=== PATIENT | female | born 1940 | race Caucasian/White ===

== ENCOUNTER 2019-11-21 11:54 | Inpatient (IN) ==
[2019-11-21] MEDS ORDERED: STERILE WATER IRRIGATION IR ONE ×2 (13:39→14:13)
[2019-11-21] MEDS ORDERED: NS 250 ML IV 250 ML IV ONE (14:11)
[2019-11-21 14:31] LABS: BASOPHILS % (AUTO) 0.6 % (0.2-1.0); EOSINOPHILS % (AUTO) 0.6 % (0.9-2.9); HEMATOCRIT 36.2 % (36.0-47.0); HEMOGLOBIN 11.5 g/dL (12.0-16.0); LYMPHOCYTES # (AUTO) 1.5 X10^3/uL (1.3-2.9); LYMPHOCYTES % (AUTO) 19.3 % (21.0-51.0); MEAN CORPUSCULAR HEMOGLOBIN 21.6 pg (27.0-34.0); MEAN CORPUSCULAR HGB CONC 31.7 g/dL (33.0-35.0); MONOCYTES # (AUTO) 0.6 x10^3/uL (0.3-0.8); MONOCYTES % (AUTO) 8.2 % (0.0-13.0); NEUTROPHILS # (AUTO) 5.4 x10^3/uL (2.2-4.8); NEUTROPHILS % (AUTO) 71.3 % (42.0-75.0); PLATELET COUNT 397 X10^3/uL (150.0-450.0); RED BLOOD COUNT 5.33 X10^6/uL (3.5-5.4); RED CELL DISTRIBUTION WIDTH 19.1 % (11.6-16.5); WHITE BLOOD COUNT 7.6 X10^3/uL (3.6-10.0)
[2019-11-21] MEDS: NS 1000 ML 1,000 ML IV SCH (14:53)
[2019-11-21 14:57] LABS: ALANINE AMINOTRANSFERASE 19 Units/L (12-78); ALBUMIN 3.6 g/dL (3.4-5.0); ALKALINE PHOSPHATASE 111 Units/L (46-116); ASPARTATE AMINO TRANSFERASE 41 Units/L (15-37); BLOOD UREA NITROGEN 18 mg/dL (7-18); CALCIUM 9.4 mg/dL (8.5-10.1); CARBON DIOXIDE 30.3 mmol/L (21-32); CHLORIDE 103 mmol/L (98-107); COR NA(FOR HYPERGLY) 140 mmol/L (136-145); CREATINE KINASE 33 Units/L (26-192); CREATININE 1.77 mg/dL (0.55-1.02); HYPOCHROMASIA 2+; MICROCYTOSIS 1+; PLATELET MORPHOLOGY COMMENT NORMAL (NORMAL); SODIUM 139 mmol/L (136-145); TOTAL PROTEIN 8.1 g/dL (6.4-8.2); TROPONIN I < 0.02 ng/mL (0-1.5); eGFR NON BLACK RACES 29 (>60)
--- NOTE | 2019-11-21 15:04 | RAD ---
HISTORYHYPOTENSION, CHRONIC AFIBSTUDYCHEST, 1 VIEWCOMPARISONNoneFINDINGSThe trachea is midline. The cardiac silhouette is unremarkable . The lungs are clear without focal infiltrate or effusion. The bony thorax is unremarkable.IMPRESSIONNo acute cardiopulmonary disease.Electronically signed by: Brooks Randhawa (Nov 21, 2019 15:02:36)
[2019-11-21 15:13] VITALS: BMI 27.1
[2019-11-21] MEDS ORDERED: NORCO 5/325 MG TAB PO PRN (16:57)
[2019-11-21] MEDS ORDERED: LASIX PO PRN (16:58)
[2019-11-21 18:46] LABS: CKMB % 2.9 % (<4); CREATINE KINASE 35 Units/L (26-192); TROPONIN I < 0.02 ng/mL (0-1.5)
[2019-11-21 19:47] LABS: BILIRUBIN,URINE NEGATIVE (NEGATIVE); BLOOD/HEMOGLOBIN,URINE 2+ (NEGATIVE); COLOR,URINE YELLOW (YELLOW); GLUCOSE, URINE NEGATIVE (NEGATIVE); KETONES,URINE NEGATIVE (NEGATIVE); LEUKOCYTE ESTERASE ,URINE 3+ (NEGATIVE); NITRITES,URINE NEGATIVE (NEGATIVE); PROTEIN,URINE 2+ (NEGATIVE); UROBILINOGEN,URINE NORMAL (NORMAL)
[2019-11-21 19:48] LABS: APPEARANCE,URINE HAZY (CLEAR)
[2019-11-21 19:54] LABS: BACTERIA,URINE TRACE /HPF (NEGATIVE); MUCUS,URINE FEW /HPF (NEGATIVE); SQUAMOUS EPITHELIAL CELL,UR MODERATE /HPF (NEGATIVE)
[2019-11-21] MEDS: COLACE CAP 100 MG PO SCH (20:24)
[2019-11-21] MEDS: PEPCID 20 MG IV PREMIX* 20 MG/50 ML BAG IV SCH (20:29)
[2019-11-21] MEDS: MILK OF MAGNESIA PO SCH (20:29)
[2019-11-21] MEDS: PATIENT'S HOME MEDICATION PO SCH (20:29)
[2019-11-21] MEDS: TOPROL XL PO SCH (20:30)
[2019-11-21] MEDS ORDERED: SINGULAIR TAB 10 MG PO SCH (21:00)
[2019-11-21 22:43] LABS: CREATINE KINASE 33 Units/L (26-192); CREATINE KINASE MB < 1.0 ng/mL (0-4.0); TROPONIN I < 0.02 ng/mL (0-1.5)
[2019-11-22] MEDS: NS 1000 ML 1,000 ML IV SCH ×3 (03:26→18:24)
[2019-11-22] MEDS: ULTRAM PO PRN ×2 (03:59→20:57)
[2019-11-22] MEDS ORDERED: SYNTHROID 100 mcg TAB PO SCH ×2 (06:00→16:30)
--- NOTE | 2019-11-22 06:22 | RAD ---
HISTORYAFibSTUDYAP [id number] normal heart size and contour with clear lungs and pleural spaces.IMPRESSIONNo change; no acute chest disease demonstrated.Electronically signed by: PURVI COLEMAN (Nov 22, 2019 06:21:40)
[2019-11-22 06:55] LABS: BASOPHILS % (AUTO) 0.6 % (0.2-1.0); EOSINOPHILS # (AUTO) 0.1 x10^3/uL (0.0-0.2); EOSINOPHILS % (AUTO) 1.8 % (0.9-2.9); HEMATOCRIT 30.8 % (36.0-47.0); HEMOGLOBIN 9.8 g/dL (12.0-16.0); LYMPHOCYTES # (AUTO) 2.2 X10^3/uL (1.3-2.9); LYMPHOCYTES % (AUTO) 30.6 % (21.0-51.0); MEAN CORPUSCULAR HEMOGLOBIN 21.5 pg (27.0-34.0); MEAN CORPUSCULAR HGB CONC 31.8 g/dL (33.0-35.0); MEAN CORPUSCULAR VOLUME 67.5 fL (80.0-100.0); MEAN PLATELET VOLUME 7.2 fL (7.4-11.0); MONOCYTES # (AUTO) 0.7 x10^3/uL (0.3-0.8); MONOCYTES % (AUTO) 9.5 % (0.0-13.0); NEUTROPHILS # (AUTO) 4.1 x10^3/uL (2.2-4.8); NEUTROPHILS % (AUTO) 57.5 % (42.0-75.0); PLATELET COUNT 315 X10^3/uL (150.0-450.0); RED BLOOD COUNT 4.57 X10^6/uL (3.5-5.4); RED CELL DISTRIBUTION WIDTH 19.2 % (11.6-16.5); WHITE BLOOD COUNT 7.2 X10^3/uL (3.6-10.0)
[2019-11-22 07:00] LABS: ALBUMIN 2.9 g/dL (3.4-5.0); CALCIUM 8.7 mg/dL (8.5-10.1); CARBON DIOXIDE 27.1 mmol/L (21-32); COR CA(FOR HYPOALB) 9.6 mg/dL (8.5-10.1); CREATININE 1.36 mg/dL (0.55-1.02); TOTAL PROTEIN 6.6 g/dL (6.4-8.2)
[2019-11-22 07:56] LABS: HYPOCHROMASIA 2+; PLATELET MORPHOLOGY COMMENT NORMAL (NORMAL)
[2019-11-22 07:57] LABS: ANISOCYTOSIS SLIGHT; MICROCYTOSIS 1+
[2019-11-22] MEDS ORDERED: POTASSIUM CHL 60 MEQ/NS 0.45% 500 ML IV PRN (08:19)
[2019-11-22] MEDS ORDERED: K-RIDER 10 MEQ/NS 100 ML 10 MEQ/100 ML BAG IV PRN (08:19)
[2019-11-22] MEDS ORDERED: POTASSIUM CHLORIDE LIQ 20 MEQ UDC PO PRN (08:19)
[2019-11-22] MEDS ORDERED: K-DUR TAB 20 MEQ PO PRN (08:19)
[2019-11-22] MEDS ORDERED: KLOR-CON PO PRN (08:19)
[2019-11-22] MEDS ORDERED: POTASSIUM CHL 40 MEQ/NS 0.45% 500 ML IV PRN (08:19)
[2019-11-22] MEDS ORDERED: MICRO K EXTEN CAP 10 MEQ PO PRN (08:19)
[2019-11-22] MEDS: MILK OF MAGNESIA PO SCH ×2 (08:23→20:23)
[2019-11-22] MEDS: TOPROL XL PO SCH ×2 (08:24→20:24)
[2019-11-22] MEDS: NexIUM PO SCH (08:24)
[2019-11-22] MEDS: SINGULAIR TAB 10 MG PO SCH (08:24)
[2019-11-22] MEDS: XARELTO PO SCH (08:25)
[2019-11-22] MEDS: VITAMIN D3 PO SCH (08:29)
[2019-11-22] MEDS: PATIENT'S HOME MEDICATION PO SCH ×2 (08:30→20:24)
[2019-11-22] MEDS ORDERED: ZyrTEC TAB 10 MG PO SCH (09:00)
[2019-11-22] MEDS ORDERED: SYNTHROID 100 mcg TAB ONE (11:37)
[2019-11-22] MEDS: MAGNESIUM SULFATE 1 GRAM/100 mL PREMIX 1 GM/100 ML BAG IV PRN ×2 (11:40→13:49)
[2019-11-22] MEDS: MICRO K EXTEN CAP 10 MEQ PO PRN (13:50)
[2019-11-22] MEDS: COLACE CAP 100 MG PO SCH (20:23)
[2019-11-22] MEDS: PEPCID 20 MG IV PREMIX* 20 MG/50 ML BAG IV SCH (20:24)
[2019-11-22] MEDS: ZyrTEC TAB 10 MG PO SCH (20:24)
[2019-11-23] MEDS: NS 1000 ML 1,000 ML IV SCH ×2 (04:25→22:25)
[2019-11-23] MEDS: SYNTHROID 100 mcg TAB PO SCH (05:27)
[2019-11-23] MEDS ORDERED: SYNTHROID 100 mcg TAB PO SCH (06:00)
[2019-11-23 07:15] LABS: BASOPHILS # (AUTO) 0.1 X10^3/uL (0.0-0.1); BASOPHILS % (AUTO) 0.7 % (0.2-1.0); EOSINOPHILS # (AUTO) 0.3 x10^3/uL (0.0-0.2); EOSINOPHILS % (AUTO) 3.1 % (0.9-2.9); HEMATOCRIT 31.5 % (36.0-47.0); HEMOGLOBIN 10.1 g/dL (12.0-16.0); LYMPHOCYTES # (AUTO) 3.7 X10^3/uL (1.3-2.9); LYMPHOCYTES % (AUTO) 36.4 % (21.0-51.0); MEAN CORPUSCULAR HEMOGLOBIN 21.8 pg (27.0-34.0); MEAN CORPUSCULAR VOLUME 68.2 fL (80.0-100.0); MEAN PLATELET VOLUME 7.3 fL (7.4-11.0); MONOCYTES # (AUTO) 0.8 x10^3/uL (0.3-0.8); MONOCYTES % (AUTO) 8.3 % (0.0-13.0); NEUTROPHILS # (AUTO) 5.2 x10^3/uL (2.2-4.8); NEUTROPHILS % (AUTO) 51.5 % (42.0-75.0); PLATELET COUNT 383 X10^3/uL (150.0-450.0); RED BLOOD COUNT 4.62 X10^6/uL (3.5-5.4); RED CELL DISTRIBUTION WIDTH 19.5 % (11.6-16.5); WHITE BLOOD COUNT 10.1 X10^3/uL (3.6-10.0)
[2019-11-23 07:22] LABS: ALANINE AMINOTRANSFERASE 13 Units/L (12-78); ALKALINE PHOSPHATASE 94 Units/L (46-116); ASPARTATE AMINO TRANSFERASE 36 Units/L (15-37); BLOOD UREA NITROGEN 10 mg/dL (7-18); CALCIUM 7.9 mg/dL (8.5-10.1); CARBON DIOXIDE 27.8 mmol/L (21-32); CHLORIDE 106 mmol/L (98-107); COR CA(FOR HYPOALB) 8.7 mg/dL (8.5-10.1); CREATININE 1.31 mg/dL (0.55-1.02); MAGNESIUM 2.2 mg/dL (1.7-2.9); SODIUM 142 mmol/L (136-145); TOTAL PROTEIN 6.9 g/dL (6.4-8.2); eGFR NON BLACK RACES 42 (>60)
[2019-11-23 07:36] LABS: ANISOCYTOSIS SLIGHT; HYPOCHROMASIA 2+; MICROCYTOSIS 1+; PLATELET MORPHOLOGY COMMENT NORMAL (NORMAL)
[2019-11-23] MEDS: MILK OF MAGNESIA PO SCH ×2 (09:09→20:56)
[2019-11-23] MEDS: ULTRAM PO PRN ×2 (09:10→16:52)
[2019-11-23] MEDS: TOPROL XL PO SCH ×2 (09:11→20:54)
[2019-11-23] MEDS: NexIUM PO SCH (09:11)
[2019-11-23] MEDS: SINGULAIR TAB 10 MG PO SCH (09:11)
[2019-11-23] MEDS: XARELTO PO SCH (09:11)
[2019-11-23] MEDS: PATIENT'S HOME MEDICATION PO SCH ×2 (10:49→20:56)
[2019-11-23] MEDS: VITAMIN D3 PO SCH (10:50)
[2019-11-23] MEDS: VIBRAMYCIN PO SCH ×2 (12:28→20:53)
--- NOTE | 2019-11-23 13:42 | DR.H&P ---
H&P - History & Physical for Day of: H&P Date: 11/21/19 - Past Medical History Past Medical History: Anemia, Coronary Artery Disease, Hypertension, Hyperthyroidism, PUD - Past Surgical History Surgical History: Cholecystectomy, Hysterectomy, Ortho Surgery, Thyroidectomy - Family History Family Medical History: Cancer, Coronary Artery Disease, Hypertension - Social History Does patient currently use any type of tobacco product: No Have you used tobacco products in the last 12 months: No Type of Tobacco Use: None Does any household member use tobacco: No Alcohol Use: None Drug Use: None - Medications Home Medications: acetaminophen [From Percocet] Allergy (Verified 10/02/19 12:26) diphenhydramine [From Benadryl] Allergy (Verified 10/02/19 12:26) lidocaine Allergy (Verified 10/02/19 12:26) oxycodone [From Percocet] Allergy (Verified 10/02/19 12:26) Penicillins Allergy (Verified 10/02/19 12:26) Sulfa (Sulfonamide Antibiotics) Allergy (Verified 10/02/19 12:26) tetanus immune globulin Allergy (Verified 10/02/19 12:26) CONTINUE taking the following medications cetirizine 10 mg PO DAILY 11/21/19 [History] cholecalciferol (vitamin D3) [Vitamin D3] 125 mcg PO DAILY 11/21/19 [History] famotidine 20 mg PO BID 11/21/19 [History] furosemide 20 mg PO DAILY PRN 11/21/19 [History] hydrocodone-acetaminophen [[place]] 1 tab PO Q4H PRN 11/21/19 [History] metoprolol succinate 25 mg PO BID 11/21/19 [History] montelukast 10 mg PO DAILY 11/21/19 [History] promethazine 25 mg PO Q4HR PRN 11/21/19 [History] - Physical Exam Vital Signs: Temperature 98.1 F Pulse Rate [Left Brachial] 90 Respiratory Rate 18 Blood Pressure [Right Arm] 156/87 O2 Sat by Pulse Oximetry 96 - Allergies Allergies/Adverse Reactions: Allergies Allergy/AdvReac Type Severity Reaction Status Date / Time acetaminophen [From Percocet] Allergy Verified 10/02/19 12:26 diphenhydramine Allergy Verified 10/02/19 12:26 [From Benadryl] lidocaine Allergy Verified 10/02/19 12:26 oxycodone [From Percocet] Allergy Verified 10/02/19 12:26 Penicillins Allergy Verified 10/02/19 12:26 Sulfa (Sulfonamide Allergy Verified 10/02/19 12:26 Antibiotics) tetanus immune globulin Allergy Verified 10/02/19 12:26
--- NOTE | 2019-11-23 13:43 | DR.UPDATE ---
H&P Update History and Physical Update: History and Physical reviewed and patient examined. Changes noted: Yes with the following: PRESENTED TO THE OFFICE YESTERDAY WITH COMPLAINTS OF GENERALIZED WEAKNESS, FATIGUE, ABDOMINAL TENDERNESS, AND SEVERE NAUSEA. SYMPTOMS STARTED SEVERAL DAYS AGO AND HAVE PROGRESSIVELY GOTTEN WORSE. SHE HAS BEEN RECEIVING ORAL AND IV ANTIBIOTICS WELL WOUND CARE FOR A RIGHT LOWER LEG WOUND. HER BLOOD PRESSURE WAS NOTED TO BE 83/60 IN THE OFFICE. SHE WAS ADMITTED TO THE HOSPITAL FOR FURTHER EVALUATION AND TREATMENT OF DEHYDRATION AND HYPOTENSION. ON ARRIVAL TO THE HOSPITAL, VITALS WERE: 98.2-120-18-97%-127/74. LABS WERE OBTAINED. ABNORMAL LAB VALUES INCLUDE THE FOLLOWING: HGB 11.5, CREATININE 1.77, GLUCOSE 126, AST 41. CARDIAC ENZYMES WITHIN NORMAL LIMITS. URINALYSIS REVEALED: WBC 3-5, RBC 3-5, BACTERIA TRACE, LEUKOCYTES 3+. WOUND CULTURE OF THE RIGHT LEG WAS SET UP. A CHEST XRAY WAS OBTAINED AND REVEALED: NO ACUTE CARDIOPULMONARY DISEASE. EKG REVEALED: ATRIAL FLUTTER WITH HR 111. SHE WAS STARTED ON NORMAL SALINE AT 75 ML/HR, THE POTASSIUM AND MAGNESIUM PROTOCOLS, PEPCID IV, AND HOME MEDICATIONS WERE RESUMED. OTHERWISE, WE PLAN TO FOLLOW UP WITH AM LABS AND CONTINUE TO MONITOR. Prescription drug monitoring program results: PDMP reviewed and no concerns identified H&P Reviewed: Yes Patient was examined?: Yes
[2019-11-23] MEDS: ZyrTEC TAB 10 MG PO SCH (20:53)
[2019-11-23] MEDS: GENTAMICIN TOPICAL CRM TOP SCH (20:55)
[2019-11-23] MEDS: COLACE CAP 100 MG PO SCH (20:55)
[2019-11-23] MEDS: PEPCID 20 MG IV PREMIX* 20 MG/50 ML BAG IV SCH (22:25)
[2019-11-24] MEDS: SYNTHROID 100 mcg TAB PO SCH (05:12)
[2019-11-24 06:37] LABS: BASOPHILS # (AUTO) 0.1 X10^3/uL (0.0-0.1); BASOPHILS % (AUTO) 1.1 % (0.2-1.0); EOSINOPHILS # (AUTO) 0.3 x10^3/uL (0.0-0.2); EOSINOPHILS % (AUTO) 4.4 % (0.9-2.9); HEMATOCRIT 27.6 % (36.0-47.0); HEMOGLOBIN 8.7 g/dL (12.0-16.0); LYMPHOCYTES # (AUTO) 1.8 X10^3/uL (1.3-2.9); LYMPHOCYTES % (AUTO) 29.6 % (21.0-51.0); MEAN CORPUSCULAR HEMOGLOBIN 21.5 pg (27.0-34.0); MEAN CORPUSCULAR HGB CONC 31.4 g/dL (33.0-35.0); MEAN CORPUSCULAR VOLUME 68.5 fL (80.0-100.0); MONOCYTES # (AUTO) 0.5 x10^3/uL (0.3-0.8); MONOCYTES % (AUTO) 8.1 % (0.0-13.0); NEUTROPHILS # (AUTO) 3.4 x10^3/uL (2.2-4.8); NEUTROPHILS % (AUTO) 56.8 % (42.0-75.0); PLATELET COUNT 265 X10^3/uL (150.0-450.0); RED BLOOD COUNT 4.02 X10^6/uL (3.5-5.4); RED CELL DISTRIBUTION WIDTH 19.5 % (11.6-16.5); WHITE BLOOD COUNT 5.9 X10^3/uL (3.6-10.0)
[2019-11-24 06:52] LABS: ALANINE AMINOTRANSFERASE 15 Units/L (12-78); ALBUMIN 2.6 g/dL (3.4-5.0); ALKALINE PHOSPHATASE 81 Units/L (46-116); ASPARTATE AMINO TRANSFERASE 36 Units/L (15-37); BLOOD UREA NITROGEN 7 mg/dL (7-18); CALCIUM 7.7 mg/dL (8.5-10.1); CARBON DIOXIDE 26.6 mmol/L (21-32); CHLORIDE 110 mmol/L (98-107); COR CA(FOR HYPOALB) 8.8 mg/dL (8.5-10.1); CREATININE 1.12 mg/dL (0.55-1.02); SODIUM 142 mmol/L (136-145); eGFR NON BLACK RACES 50 (>60)
[2019-11-24 06:58] LABS: HYPOCHROMASIA 2+; MICROCYTOSIS 1+; PLATELET MORPHOLOGY COMMENT NORMAL (NORMAL)
--- NOTE | 2019-11-24 08:30 | PCM.PROG ---
Progress Note - Progress Note for Day of Date of Exam: 11/23/19 - Subjective Subjective: IS BEING TREATED FOR RIGHT LOWER EXTREMITY CELLULITIS, DEHYDRATION, HYPOTENSION, AND A URINARY TRACT INFECTION. TODAY, SHE IS ALERT AND ORIENTED, LYING IN BED ON MORNING ROUNDS. SHE CONTINUES WITH COMPLAINTS OF WEAKNESS AND NAUSEA. ON EXAMINATION, HEART IS REGULAR IN RATE AND RHYTHM. BILATERAL LUNGS ARE NOTED WITH DIMINISHED LUNG SOUNDS THROUGHOUT. ABDOMEN IS ROUND, SOFT, AND NON-TENDER WITH NORMAL BOWEL SOUNDS NOTED IN ALL QUADRANTS. RLE IS NOTED WITH ERYTHEMA AND AN OPEN WOUND. THERE IS A MINIMAL AMOUNT OF SEROSANGUINEOUS DRAINAGE NOTED. HER VITALS THIS MORNING ARE: 98.1-90 -20-96%-156/87. LABS WERE OBTAINED. ABNORMAL LAB VALUES INCLUDE THE FOLLOWING: WBC 10.1, HGB 10.1, HCT 31.5, POTASSIUM 3.1, CREATININE 1.31, GLUCOSE 107, CALCIUM 7.9, ALBUMIN 3.0. URINE CULTURE AND RIGHT LEG CULTURE PENDING. SHE IS CURRENTLY RECEIVING NORMAL SALINE AT 75 ML/HR, THE POTASSIUM AND MAGNESIUM PROTOCOLS, PEPCID IV, AND HOME MEDICATIONS WERE RESUMED. DOXYCYCLINE IS ONE OF HER HOME MEDICATIONS. WE WILL CONTINUE WITH CURRENT PLAN OF CARE TODAY. OTHERWISE, WE PLAN TO FOLLOW UP WITH AM LABS AND CONTINUE TO MONITOR. - Past Medical Family Social History Past Med/Fam/Surg Hx: No changes since H&P Allergies: Allergies acetaminophen [From Percocet] Allergy (Verified 10/02/19 12:26) previous chart listed acetaminiphen from the percocet also diphenhydramine [From Benadryl] Allergy (Verified 10/02/19 12:26) lidocaine Allergy (Verified 10/02/19 12:26) oxycodone [From Percocet] Allergy (Verified 10/02/19 12:26) previous chart listed acetaminiphen from the percocet also Penicillins Allergy (Verified 10/02/19 12:26) Sulfa (Sulfonamide Antibiotics) Allergy (Verified 10/02/19 12:26) tetanus immune globulin Allergy (Verified 10/02/19 12:26) - Review of Systems ROS: No change since H&P - Vital Signs and I&O's Vital Signs: Temperature 98.9 F Pulse Rate [Left Brachial] 89 Respiratory Rate 18 Blood Pressure [Right Arm] 129/72 O2 Sat by Pulse Oximetry 98 Intake and Output: Intake & Output 11/21/19 11/22/19 11/23/19 11/24/19 11:59 11:59 11:59 11:59 Intake Total 1780 / 1780 2940 / 2940 2790 / 2790 Output Total 0 / 0 Balance 1780 / 1780 2940 / 2940 2790 / 2790 - Physical Exam Oriented: Normal Eyes: Normal Ear: Normal Nose: Normal Throat: Normal Respiratory: Generalized, Diminished Cardiovascular: Normal : Normal Auscultation: Bowel Sounds: Normal Palpation: Normal Tenderness: Normal Skin: Wound (RLE ) Musculoskeletal: Normal Psychiatric: Normal Mood Description: Calm Affect: Normal Speech Pattern: Clear, Appropriate - Laboratory and Diagnostics Result Diagrams: 11/24/19 06:14 11/24/19 06:14 Labs: 11/22/19 11:45 Leg - Right Gram Stain - Final 11/22/19 11:45 Leg - Right Wound Culture - Preliminary Laboratory WBC 5.9 X10^3/uL (3.6-10.0) 11/24/19 06:14 RBC 4.02 X10^6/uL (3.5-5.4) 11/24/19 06:14 Hgb 8.7 g/dL (12.0-16.0) L 11/24/19 06:14 Hct 27.6 % (36.0-47.0) L 11/24/19 06:14 MCV 68.5 fL (80.0-100.0) L 11/24/19 06:14 MCH 21.5 pg (27.0-34.0) L 11/24/19 06:14 MCHC 31.4 g/dL (33.0-35.0) L 11/24/19 06:14 RDW 19.5 % (11.6-16.5) H 11/24/19 06:14 Plt Count 265 X10^3/uL (150.0-450.0) 11/24/19 06:14 Plt Count Comment Adequate (ADEQUATE) 11/24/19 06:14 MPV 7.0 fL (7.4-11.0) L 11/24/19 06:14 Neut % (Auto) 56.8 % (42.0-75.0) 11/24/19 06:14 Lymph % (Auto) 29.6 % (21.0-51.0) 11/24/19 06:14 [place] % (Auto) 8.1 % (0.0-13.0) 11/24/19 06:14 Eos % (Auto) 4.4 % (0.9-2.9) H 11/24/19 06:14 Baso % (Auto) 1.1 % (0.2-1.0) H 11/24/19 06:14 Neut # (Auto) 3.4 x10^3/uL (2.2-4.8) 11/24/19 06:14 Lymph # (Auto) 1.8 X10^3/uL (1.3-2.9) 11/24/19 06:14 [place] # (Auto) 0.5 x10^3/uL (0.3-0.8) 11/24/19 06:14 Eos # (Auto) 0.3 x10^3/uL (0.0-0.2) H 11/24/19 06:14 Baso # (Auto) 0.1 X10^3/uL (0.0-0.1) 11/24/19 06:14 Absolute Nucleated RBC 0.0 /100WBC 11/24/19 06:14 Plt Morphology Comment Normal (NORMAL) 11/24/19 06:14 RBC Morphology Abnormal (NORMAL) A 11/24/19 06:14 Hypochromasia 2+ A 11/24/19 06:14 Anisocytosis Slight A 11/23/19 05:45 Microcytosis 1+ A 11/24/19 06:14 Sodium 142 mmol/L (136-145) 11/24/19 06:14 Corrected Sodium TNP 11/24/19 06:14 Potassium 4.0 mmol/L (3.5-5.1) 11/24/19 06:14 Chloride 110 mmol/L (98-107) H 11/24/19 06:14 Carbon Dioxide 26.6 mmol/L (21-32) 11/24/19 06:14 BUN 7 mg/dL (7-18) 11/24/19 06:14 Creatinine 1.12 mg/dL (0.55-1.02) H 11/24/19 06:14 Est GFR (MDRD) Af Amer > 60 (>60) 11/24/19 06:14 Est GFR (MDRD) Non-Af 50 (>60) L 11/24/19 06:14 Glucose 101 mg/dL (65-99) H 11/24/19 06:14 Hemoglobin A1c 5.7 % 11/21/19 14:20 Calcium 7.7 mg/dL (8.5-10.1) L 11/24/19 06:14 Corrected Calcium 8.8 mg/dL (8.5-10.1) 11/24/19 06:14 Magnesium 2.2 mg/dL (1.7-2.9) 11/23/19 05:45 Total Bilirubin 0.40 mg/dL (0.2-1.0) 11/24/19 06:14 AST 36 Units/L (15-37) 11/24/19 06:14 ALT 15 Units/L (12-78) 11/24/19 06:14 Alkaline Phosphatase 81 Units/L (46-116) 11/24/19 06:14 Creatine Kinase 33 Units/L (26-192) 11/21/19 22:16 CK-MB (CK-2) < 1.0 ng/mL (0-4.0) 11/21/19 22:16 CK/CKMB % Calc 3.0 % (<4) 11/21/19 22:16 Troponin I < 0.02 ng/mL (0-1.5) 11/21/19 22:16 Total Protein 6.0 g/dL (6.4-8.2) L 11/24/19 06:14 Albumin 2.6 g/dL (3.4-5.0) L 11/24/19 06:14 Globulin 3.4 g/dL (2.5-4.5) 11/24/19 06:14 Albumin/Globulin Ratio 0.8 Ratio (1.1-2.1) L 11/24/19 06:14 Specimen Type Clean catch urine 11/21/19 19:36 Urine Color Yellow (YELLOW) 11/21/19 19:36 Urine Appearance Hazy (CLEAR) 11/21/19 19:36 Urine pH 6.0 (5.0 - 8.0) 11/21/19 19:36 Ur Specific [place] 1.015 (1.000-1.030) 11/21/19 19:36 Urine Protein 2+ (NEGATIVE) 11/21/19 19:36 Urine Glucose (UA) Negative (NEGATIVE) 11/21/19 19:36 Urine Ketones Negative (NEGATIVE) 11/21/19 19:36 Urine Occult Blood 2+ (NEGATIVE) 11/21/19 19:36 Urine Nitrite Negative (NEGATIVE) 11/21/19 19:36 Urine Bilirubin Negative (NEGATIVE) 11/21/19 19:36 Urine Urobilinogen Normal (NORMAL) 11/21/19 19:36 Ur Leukocyte Esterase 3+ (NEGATIVE) 11/21/19 19:36 Urine RBC 3-5 /HPF (0-3) A 11/21/19 19:36 Urine WBC 3-5 /HPF (0-5) 11/21/19 19:36 Ur Squamous Epith Cells Moderate /HPF (NEGATIVE) 11/21/19 19:36 Urine Bacteria Trace /HPF (NEGATIVE) 11/21/19 19:36 Urine Mucus Few /HPF (NEGATIVE) 11/21/19 19:36 Ur Culture Indicated? No/not indicated 11/21/19 19:36 - Plan (1) Cellulitis of right leg without foot Status: Acute Plan: DOXYCYCLINE 100MG PO BID, GENTAMICIN, WOUND CARE, CONTINUE TO MONITOR (2) Dehydration Status: Acute Plan: NORMAL SALINE AT 75 ML/HR, CONTINUE TO MONITOR (3) Urinary tract infection Status: Acute Qualifiers: Urinary tract infection type: site unspecified Hematuria presence: without hematuria Qualified Code(s): N39.0 - Urinary tract infection, site not specified Plan: DOXYCYCLINE 100MG PO BID, CONTINUE TO MONITOR
[2019-11-24] MEDS: XARELTO PO SCH (08:45)
[2019-11-24] MEDS: TOPROL XL PO SCH ×2 (08:46→20:13)
[2019-11-24] MEDS: ULTRAM PO PRN ×3 (08:46→22:10)
[2019-11-24] MEDS: VIBRAMYCIN PO SCH (08:46)
[2019-11-24] MEDS: MILK OF MAGNESIA PO SCH ×2 (08:46→20:15)
[2019-11-24] MEDS: NexIUM PO SCH (08:47)
[2019-11-24] MEDS: SINGULAIR TAB 10 MG PO SCH (08:47)
[2019-11-24] MEDS: VITAMIN D3 PO SCH (08:50)
[2019-11-24] MEDS: PATIENT'S HOME MEDICATION PO SCH ×2 (08:50→20:15)
[2019-11-24] MEDS: NS 1000 ML 1,000 ML IV SCH ×2 (11:00→19:31)
[2019-11-24] MEDS: PHENERGAN TAB 25 MG PO PRN (11:00)
[2019-11-24] MEDS: GENTAMICIN TOPICAL CRM TOP SCH ×2 (11:19→20:14)
--- NOTE | 2019-11-24 19:15 | PCM.PROG ---
Progress Note - Progress Note for Day of Date of Exam: 11/24/19 - Subjective Subjective: IS BEING TREATED FOR RIGHT LOWER EXTREMITY CELLULITIS, DEHYDRATION, HYPOTENSION, AND A URINARY TRACT INFECTION. TODAY, SHE IS ALERT AND ORIENTED, LYING IN BED ON MORNING ROUNDS. SHE CONTINUES WITH COMPLAINTS OF WEAKNESS AND NAUSEA. ON EXAMINATION, HEART IS REGULAR IN RATE AND RHYTHM. BILATERAL LUNGS ARE NOTED WITH DIMINISHED LUNG SOUNDS THROUGHOUT. ABDOMEN IS ROUND, SOFT, AND NON-TENDER WITH NORMAL BOWEL SOUNDS NOTED IN ALL QUADRANTS. RLE IS NOTED WITH ERYTHEMA AND AN OPEN WOUND. THERE IS A MINIMAL AMOUNT OF SEROSANGUINEOUS DRAINAGE NOTED. HER VITALS THIS MORNING ARE: 98.2-89 -20-100%-198/94. LABS WERE OBTAINED. ABNORMAL LAB VALUES INCLUDE THE FOLLOWING: HGB 8.7, HCT 27.6, CHLORIDE 110, CREATININE 1.12, GLUCOSE 101, CALCIUM 7.7, TOTAL PROTEIN 6.0, ALBUMIN 2.6. URINE CULTURE AND RIGHT LEG CULTURE PENDING. SHE IS CURRENTLY RECEIVING NORMAL SALINE AT 75 ML/HR, THE POTASSIUM AND MAGNESIUM PROTOCOLS, PEPCID IV, AND HOME MEDICATIONS WERE RESUMED. DOXYCYCLINE IS ONE OF HER HOME MEDICATIONS. WE WILL CONTINUE WITH CURRENT PLAN OF CARE TODAY. OTHERWISE, WE PLAN TO FOLLOW UP WITH AM LABS AND CONTINUE TO MONITOR. - Past Medical Family Social History Past Med/Fam/Surg Hx: No changes since H&P Allergies: Allergies acetaminophen [From Percocet] Allergy (Verified 10/02/19 12:26) previous chart listed acetaminiphen from the percocet also diphenhydramine [From Benadryl] Allergy (Verified 10/02/19 12:26) lidocaine Allergy (Verified 10/02/19 12:26) oxycodone [From Percocet] Allergy (Verified 10/02/19 12:26) previous chart listed acetaminiphen from the percocet also Penicillins Allergy (Verified 10/02/19 12:26) Sulfa (Sulfonamide Antibiotics) Allergy (Verified 10/02/19 12:26) tetanus immune globulin Allergy (Verified 10/02/19 12:26) - Review of Systems ROS: No change since H&P - Vital Signs and I&O's Vital Signs: Temperature 99.0 F Pulse Rate [Left Brachial] 100 Respiratory Rate 20 Blood Pressure [Right Arm] 134/78 O2 Sat by Pulse Oximetry 97 Intake and Output: Intake & Output 11/22/19 11/23/19 11/24/19 11/25/19 11:59 11:59 11:59 11:59 Intake Total 1780 / 1780 2940 / 2940 2790 / 2790 620 / 620 Output Total 0 / 0 Balance 1780 / 1780 2940 / 2940 2790 / 2790 620 / 620 - Physical Exam Oriented: Normal Eyes: Normal Ear: Normal Nose: Normal Throat: Normal Respiratory: Generalized, Diminished Cardiovascular: Normal : Normal Auscultation: Bowel Sounds: Normal Tenderness: Normal Skin: Wound (RLE ) Musculoskeletal: Normal Psychiatric: Normal Mood Description: Calm Affect: Normal Speech Pattern: Clear, Appropriate - Laboratory and Diagnostics Result Diagrams: 11/24/19 06:14 11/24/19 06:14 Labs: 11/23/19 18:40 Urine,Clean Catch Urine Culture - Preliminary 11/22/19 11:45 Leg - Right Gram Stain - Final 11/22/19 11:45 Leg - Right Wound Culture - Preliminary Laboratory WBC 5.9 X10^3/uL (3.6-10.0) 11/24/19 06:14 RBC 4.02 X10^6/uL (3.5-5.4) 11/24/19 06:14 Hgb 8.7 g/dL (12.0-16.0) L 11/24/19 06:14 Hct 27.6 % (36.0-47.0) L 11/24/19 06:14 MCV 68.5 fL (80.0-100.0) L 11/24/19 06:14 MCH 21.5 pg (27.0-34.0) L 11/24/19 06:14 MCHC 31.4 g/dL (33.0-35.0) L 11/24/19 06:14 RDW 19.5 % (11.6-16.5) H 11/24/19 06:14 Plt Count 265 X10^3/uL (150.0-450.0) 11/24/19 06:14 Plt Count Comment Adequate (ADEQUATE) 11/24/19 06:14 MPV 7.0 fL (7.4-11.0) L 11/24/19 06:14 Neut % (Auto) 56.8 % (42.0-75.0) 11/24/19 06:14 Lymph % (Auto) 29.6 % (21.0-51.0) 11/24/19 06:14 [place] % (Auto) 8.1 % (0.0-13.0) 11/24/19 06:14 Eos % (Auto) 4.4 % (0.9-2.9) H 11/24/19 06:14 Baso % (Auto) 1.1 % (0.2-1.0) H 11/24/19 06:14 Neut # (Auto) 3.4 x10^3/uL (2.2-4.8) 11/24/19 06:14 Lymph # (Auto) 1.8 X10^3/uL (1.3-2.9) 11/24/19 06:14 [place] # (Auto) 0.5 x10^3/uL (0.3-0.8) 11/24/19 06:14 Eos # (Auto) 0.3 x10^3/uL (0.0-0.2) H 11/24/19 06:14 Baso # (Auto) 0.1 X10^3/uL (0.0-0.1) 11/24/19 06:14 Absolute Nucleated RBC 0.0 /100WBC 11/24/19 06:14 Plt Morphology Comment Normal (NORMAL) 11/24/19 06:14 RBC Morphology Abnormal (NORMAL) A 11/24/19 06:14 Hypochromasia 2+ A 11/24/19 06:14 Anisocytosis Slight A 11/23/19 05:45 Microcytosis 1+ A 11/24/19 06:14 Sodium 142 mmol/L (136-145) 11/24/19 06:14 Corrected Sodium TNP 11/24/19 06:14 Potassium 4.0 mmol/L (3.5-5.1) 11/24/19 06:14 Chloride 110 mmol/L (98-107) H 11/24/19 06:14 Carbon Dioxide 26.6 mmol/L (21-32) 11/24/19 06:14 BUN 7 mg/dL (7-18) 11/24/19 06:14 Creatinine 1.12 mg/dL (0.55-1.02) H 11/24/19 06:14 Est GFR (MDRD) Af Amer > 60 (>60) 11/24/19 06:14 Est GFR (MDRD) Non-Af 50 (>60) L 11/24/19 06:14 Glucose 101 mg/dL (65-99) H 11/24/19 06:14 Hemoglobin A1c 5.7 % 11/21/19 14:20 Calcium 7.7 mg/dL (8.5-10.1) L 11/24/19 06:14 Corrected Calcium 8.8 mg/dL (8.5-10.1) 11/24/19 06:14 Magnesium 2.2 mg/dL (1.7-2.9) 11/23/19 05:45 Total Bilirubin 0.40 mg/dL (0.2-1.0) 11/24/19 06:14 AST 36 Units/L (15-37) 11/24/19 06:14 ALT 15 Units/L (12-78) 11/24/19 06:14 Alkaline Phosphatase 81 Units/L (46-116) 11/24/19 06:14 Creatine Kinase 33 Units/L (26-192) 11/21/19 22:16 CK-MB (CK-2) < 1.0 ng/mL (0-4.0) 11/21/19 22:16 CK/CKMB % Calc 3.0 % (<4) 11/21/19 22:16 Troponin I < 0.02 ng/mL (0-1.5) 11/21/19 22:16 Total Protein 6.0 g/dL (6.4-8.2) L 11/24/19 06:14 Albumin 2.6 g/dL (3.4-5.0) L 11/24/19 06:14 Globulin 3.4 g/dL (2.5-4.5) 11/24/19 06:14 Albumin/Globulin Ratio 0.8 Ratio (1.1-2.1) L 11/24/19 06:14 Specimen Type Clean catch urine 11/21/19 19:36 Urine Color Yellow (YELLOW) 11/21/19 19:36 Urine Appearance Hazy (CLEAR) 11/21/19 19:36 Urine pH 6.0 (5.0 - 8.0) 11/21/19 19:36 Ur Specific [place] 1.015 (1.000-1.030) 11/21/19 19:36 Urine Protein 2+ (NEGATIVE) 11/21/19 19:36 Urine Glucose (UA) Negative (NEGATIVE) 11/21/19 19:36 Urine Ketones Negative (NEGATIVE) 11/21/19 19:36 Urine Occult Blood 2+ (NEGATIVE) 11/21/19 19:36 Urine Nitrite Negative (NEGATIVE) 11/21/19 19:36 Urine Bilirubin Negative (NEGATIVE) 11/21/19 19:36 Urine Urobilinogen Normal (NORMAL) 11/21/19 19:36 Ur Leukocyte Esterase 3+ (NEGATIVE) 11/21/19 19:36 Urine RBC 3-5 /HPF (0-3) A 11/21/19 19:36 Urine WBC 3-5 /HPF (0-5) 11/21/19 19:36 Ur Squamous Epith Cells Moderate /HPF (NEGATIVE) 11/21/19 19:36 Urine Bacteria Trace /HPF (NEGATIVE) 11/21/19 19:36 Urine Mucus Few /HPF (NEGATIVE) 11/21/19 19:36 Ur Culture Indicated? No/not indicated 11/21/19 19:36 - Plan (1) Cellulitis of right leg without foot Status: Acute Plan: DOXYCYCLINE 100MG PO BID, GENTAMICIN, WOUND CARE, CONTINUE TO MONITOR (2) Dehydration Status: Acute Plan: NORMAL SALINE AT 75 ML/HR, CONTINUE TO MONITOR (3) Urinary tract infection Status: Acute Qualifiers: Urinary tract infection type: site unspecified Hematuria presence: without hematuria Qualified Code(s): N39.0 - Urinary tract infection, site not specified Plan: DOXYCYCLINE 100MG PO BID, CONTINUE TO MONITOR
[2019-11-24] MEDS: ZyrTEC TAB 10 MG PO SCH (20:12)
[2019-11-24] MEDS: COLACE CAP 100 MG PO SCH (20:13)
[2019-11-24] MEDS: PEPCID 20 MG IV PREMIX* 20 MG/50 ML BAG IV SCH (20:15)
[2019-11-24] MEDS: VIBRAMYCIN 100 MG in D5W 250 ML IV 250 ML IV SCH (20:20)
[2019-11-25] MEDS: NS 1000 ML 1,000 ML IV SCH ×2 (03:03→16:51)
[2019-11-25] MEDS: SYNTHROID 100 mcg TAB PO SCH (05:03)
[2019-11-25 06:24] LABS: BASOPHILS # (AUTO) 0.1 X10^3/uL (0.0-0.1); EOSINOPHILS # (AUTO) 0.3 x10^3/uL (0.0-0.2); EOSINOPHILS % (AUTO) 4.4 % (0.9-2.9); HEMATOCRIT 25.5 % (36.0-47.0); HEMOGLOBIN 8.2 g/dL (12.0-16.0); LYMPHOCYTES % (AUTO) 35.7 % (21.0-51.0); MEAN CORPUSCULAR HEMOGLOBIN 21.7 pg (27.0-34.0); MEAN CORPUSCULAR HGB CONC 31.9 g/dL (33.0-35.0); MEAN CORPUSCULAR VOLUME 67.9 fL (80.0-100.0); MEAN PLATELET VOLUME 7.2 fL (7.4-11.0); MONOCYTES # (AUTO) 0.5 x10^3/uL (0.3-0.8); MONOCYTES % (AUTO) 8.8 % (0.0-13.0); NEUTROPHILS # (AUTO) 2.9 x10^3/uL (2.2-4.8); NEUTROPHILS % (AUTO) 50.1 % (42.0-75.0); PLATELET COUNT 257 X10^3/uL (150.0-450.0); RED BLOOD COUNT 3.76 X10^6/uL (3.5-5.4); RED CELL DISTRIBUTION WIDTH 19.2 % (11.6-16.5); WHITE BLOOD COUNT 5.7 X10^3/uL (3.6-10.0)
[2019-11-25 06:45] LABS: ALANINE AMINOTRANSFERASE 12 Units/L (12-78); ALBUMIN 2.6 g/dL (3.4-5.0); ALKALINE PHOSPHATASE 80 Units/L (46-116); ASPARTATE AMINO TRANSFERASE 32 Units/L (15-37); BLOOD UREA NITROGEN 10 mg/dL (7-18); CALCIUM 7.9 mg/dL (8.5-10.1); CARBON DIOXIDE 27.2 mmol/L (21-32); CHLORIDE 109 mmol/L (98-107); CREATININE 1.26 mg/dL (0.55-1.02); SODIUM 142 mmol/L (136-145); TOTAL PROTEIN 5.9 g/dL (6.4-8.2); eGFR NON BLACK RACES 44 (>60)
[2019-11-25 06:54] LABS: ANISOCYTOSIS SLIGHT; HYPOCHROMASIA 2+; MICROCYTOSIS 1+; PLATELET MORPHOLOGY COMMENT NORMAL (NORMAL)
[2019-11-25] MEDS: TOPROL XL PO SCH ×2 (08:51→20:43)
[2019-11-25] MEDS: XARELTO PO SCH (08:51)
[2019-11-25] MEDS: NexIUM PO SCH (08:51)
[2019-11-25] MEDS: MILK OF MAGNESIA PO SCH ×2 (08:51→20:43)
[2019-11-25] MEDS: SINGULAIR TAB 10 MG PO SCH (08:51)
[2019-11-25] MEDS: PATIENT'S HOME MEDICATION PO SCH ×2 (08:55→20:43)
[2019-11-25] MEDS: VITAMIN D3 PO SCH (08:55)
[2019-11-25] MEDS: GENTAMICIN TOPICAL CRM TOP SCH ×2 (08:55→20:42)
[2019-11-25] MEDS: VIBRAMYCIN 100 MG in D5W 250 ML IV 250 ML IV SCH (08:55)
[2019-11-25] MEDS ORDERED: PROCALAMINE 3 % 1,000 ML IV SCH (11:00)
[2019-11-25] MEDS: INVANZ INJ 1 GM VIAL 1 GM in NS 100 ML IV + SPIKE MINIBAG* 100 ML IV SCH (12:39)
[2019-11-25] MEDS: ALBUMIN HUMAN 25%- 100 ML 100 ML IV SCH (12:39)
[2019-11-25] MEDS: PHENERGAN TAB 25 MG PO PRN (15:51)
[2019-11-25] MEDS: MAGNESIUM SULFATE 1 GRAM/100 mL PREMIX 1 GM/100 ML BAG IV PRN (15:51)
[2019-11-25] MEDS: ULTRAM PO PRN (20:30)
[2019-11-25] MEDS: COLACE CAP 100 MG PO SCH (20:42)
[2019-11-25] MEDS: PEPCID 20 MG IV PREMIX* 20 MG/50 ML BAG IV SCH (20:43)
[2019-11-25] MEDS: ZyrTEC TAB 10 MG PO SCH (20:43)
[2019-11-25] MEDS: MICRO K EXTEN CAP 10 MEQ PO PRN (21:00)
--- NOTE | 2019-11-25 21:27 | PCM.PROG ---
Progress Note - Progress Note for Day of Date of Exam: 11/25/19 - Subjective Subjective: IS BEING TREATED FOR RIGHT LOWER EXTREMITY CELLULITIS, DEHYDRATION, HYPOTENSION, AND A URINARY TRACT INFECTION. TODAY, SHE IS ALERT AND ORIENTED, LYING IN BED ON MORNING ROUNDS. SHE CONTINUES WITH COMPLAINTS OF WEAKNESS AND NAUSEA. ON EXAMINATION, HEART IS REGULAR IN RATE AND RHYTHM. BILATERAL LUNGS ARE NOTED WITH DIMINISHED LUNG SOUNDS THROUGHOUT. ABDOMEN IS ROUND, SOFT, AND NON-TENDER WITH NORMAL BOWEL SOUNDS NOTED IN ALL QUADRANTS. RLE IS NOTED WITH ERYTHEMA AND AN OPEN WOUND. THERE IS A MINIMAL AMOUNT OF SEROSANGUINEOUS DRAINAGE NOTED. HER VITALS THIS MORNING ARE: 98.4-87 -20-97%-140/64. LABS WERE OBTAINED. ABNORMAL LAB VALUES INCLUDE THE FOLLOWING: HGB 8.2, HCT 25.5, CHLORIDE 109, CREATININE 1.26, CALCIUM 7.9, MAGNESIUM 1.6, TOTAL PROTEIN 5.9, ALBUMIN 2.6. RIGHT LEG CULTURE PENDING. URINE CULTURE REVEALED GROWTH OF E.COLI AND KLEBSIELLA PNEUMONIAE. SHE IS CURRENTLY RECEIVING NORMAL SALINE AT 75 ML/HR, THE POTASSIUM AND MAGNESIUM PROTOCOLS, PEPCID IV, AND HOME MEDICATIONS WERE RESUMED. DOXYCYCLINE IS ONE OF HER HOME MEDICATIONS. WE WILL DISCONTINUE THE DOXY TODAY AND ADD INVANZ 1G IV DAILY AND ALBUMIN 25% IV DAILY. OTHERWISE, WE WILL CONTINUE WITH CURRENT PLAN OF CARE TODAY. WE PLAN TO FOLLOW UP WITH AM LABS AND CONTINUE TO MONITOR. - Past Medical Family Social History Past Med/Fam/Surg Hx: No changes since H&P Allergies: Allergies acetaminophen [From Percocet] Allergy (Verified 10/02/19 12:26) previous chart listed acetaminiphen from the percocet also diphenhydramine [From Benadryl] Allergy (Verified 10/02/19 12:26) lidocaine Allergy (Verified 10/02/19 12:26) oxycodone [From Percocet] Allergy (Verified 10/02/19 12:26) previous chart listed acetaminiphen from the percocet also Penicillins Allergy (Verified 10/02/19 12:26) Sulfa (Sulfonamide Antibiotics) Allergy (Verified 10/02/19 12:26) tetanus immune globulin Allergy (Verified 10/02/19 12:26) - Review of Systems ROS: No change since H&P - Vital Signs and I&O's Vital Signs: Temperature 98.9 F Pulse Rate [Left Brachial] 95 Respiratory Rate 20 Blood Pressure [Right Arm] 163/72 O2 Sat by Pulse Oximetry 99 Intake and Output: Intake & Output 11/23/19 11/24/19 11/25/19 11/26/19 11:59 11:59 11:59 11:59 Intake Total 2940 / 2940 2790 / 2790 2640 / 2640 1330 / 1330 Balance 2940 / 2940 2790 / 2790 2640 / 2640 1330 / 1330 - Physical Exam Oriented: Normal Eyes: Normal Ear: Normal Nose: Normal Throat: Normal Respiratory: Generalized, Diminished Cardiovascular: Normal : Normal Auscultation: Bowel Sounds: Normal Palpation: Normal Tenderness: Normal Skin: Wound (RLE ) Musculoskeletal: Normal Psychiatric: Normal Mood Description: Calm Affect: Normal Speech Pattern: Clear, Appropriate - Laboratory and Diagnostics Result Diagrams: 11/25/19 05:12 11/25/19 05:12 Labs: 11/22/19 11:45 Leg - Right Gram Stain - Final 11/22/19 11:45 Leg - Right Wound Culture - Final 11/23/19 18:40 Urine,Clean Catch Urine Culture - Final Escherichia Coli Klebsiella Pneumoniae Laboratory WBC 5.7 X10^3/uL (3.6-10.0) 11/25/19 05:12 RBC 3.76 X10^6/uL (3.5-5.4) 11/25/19 05:12 Hgb 8.2 g/dL (12.0-16.0) L 11/25/19 05:12 Hct 25.5 % (36.0-47.0) L 11/25/19 05:12 MCV 67.9 fL (80.0-100.0) L 11/25/19 05:12 MCH 21.7 pg (27.0-34.0) L 11/25/19 05:12 MCHC 31.9 g/dL (33.0-35.0) L 11/25/19 05:12 RDW 19.2 % (11.6-16.5) H 11/25/19 05:12 Plt Count 257 X10^3/uL (150.0-450.0) 11/25/19 05:12 Plt Count Comment Adequate (ADEQUATE) 11/25/19 05:12 MPV 7.2 fL (7.4-11.0) L 11/25/19 05:12 Neut % (Auto) 50.1 % (42.0-75.0) 11/25/19 05:12 Lymph % (Auto) 35.7 % (21.0-51.0) 11/25/19 05:12 [place] % (Auto) 8.8 % (0.0-13.0) 11/25/19 05:12 Eos % (Auto) 4.4 % (0.9-2.9) H 11/25/19 05:12 Baso % (Auto) 1.0 % (0.2-1.0) 11/25/19 05:12 Neut # (Auto) 2.9 x10^3/uL (2.2-4.8) 11/25/19 05:12 Lymph # (Auto) 2.0 X10^3/uL (1.3-2.9) 11/25/19 05:12 [place] # (Auto) 0.5 x10^3/uL (0.3-0.8) 11/25/19 05:12 Eos # (Auto) 0.3 x10^3/uL (0.0-0.2) H 11/25/19 05:12 Baso # (Auto) 0.1 X10^3/uL (0.0-0.1) 11/25/19 05:12 Absolute Nucleated RBC 0.0 /100WBC 11/25/19 05:12 Plt Morphology Comment Normal (NORMAL) 11/25/19 05:12 RBC Morphology Abnormal (NORMAL) A 11/25/19 05:12 Hypochromasia 2+ A 11/25/19 05:12 Anisocytosis Slight A 11/25/19 05:12 Microcytosis 1+ A 11/25/19 05:12 Sodium 142 mmol/L (136-145) 11/25/19 05:12 Corrected Sodium TNP 11/25/19 05:12 Potassium 3.5 mmol/L (3.5-5.1) 11/25/19 05:12 Chloride 109 mmol/L (98-107) H 11/25/19 05:12 Carbon Dioxide 27.2 mmol/L (21-32) 11/25/19 05:12 BUN 10 mg/dL (7-18) 11/25/19 05:12 Creatinine 1.26 mg/dL (0.55-1.02) H 11/25/19 05:12 Est GFR (MDRD) Af Amer 53 (>60) L 11/25/19 05:12 Est GFR (MDRD) Non-Af 44 (>60) L 11/25/19 05:12 Glucose 94 mg/dL (65-99) 11/25/19 05:12 Hemoglobin A1c 5.7 % 11/21/19 14:20 Calcium 7.9 mg/dL (8.5-10.1) L 11/25/19 05:12 Corrected Calcium 9.0 mg/dL (8.5-10.1) 11/25/19 05:12 Magnesium 1.6 mg/dL (1.7-2.9) L 11/25/19 05:12 Total Bilirubin 0.50 mg/dL (0.2-1.0) 11/25/19 05:12 AST 32 Units/L (15-37) 11/25/19 05:12 ALT 12 Units/L (12-78) 11/25/19 05:12 Alkaline Phosphatase 80 Units/L (46-116) 11/25/19 05:12 Creatine Kinase 33 Units/L (26-192) 11/21/19 22:16 CK-MB (CK-2) < 1.0 ng/mL (0-4.0) 11/21/19 22:16 CK/CKMB % Calc 3.0 % (<4) 11/21/19 22:16 Troponin I < 0.02 ng/mL (0-1.5) 11/21/19 22:16 Total Protein 5.9 g/dL (6.4-8.2) L 11/25/19 05:12 Albumin 2.6 g/dL (3.4-5.0) L 11/25/19 05:12 Globulin 3.3 g/dL (2.5-4.5) 11/25/19 05:12 Albumin/Globulin Ratio 0.8 Ratio (1.1-2.1) L 11/25/19 05:12 Specimen Type Clean catch urine 11/21/19 19:36 Urine Color Yellow (YELLOW) 11/21/19 19:36 Urine Appearance Hazy (CLEAR) 11/21/19 19:36 Urine pH 6.0 (5.0 - 8.0) 11/21/19 19:36 Ur Specific [place] 1.015 (1.000-1.030) 11/21/19 19:36 Urine Protein 2+ (NEGATIVE) 11/21/19 19:36 Urine Glucose (UA) Negative (NEGATIVE) 11/21/19 19:36 Urine Ketones Negative (NEGATIVE) 11/21/19 19:36 Urine Occult Blood 2+ (NEGATIVE) 11/21/19 19:36 Urine Nitrite Negative (NEGATIVE) 11/21/19 19:36 Urine Bilirubin Negative (NEGATIVE) 11/21/19 19:36 Urine Urobilinogen Normal (NORMAL) 11/21/19 19:36 Ur Leukocyte Esterase 3+ (NEGATIVE) 11/21/19 19:36 Urine RBC 3-5 /HPF (0-3) A 11/21/19 19:36 Urine WBC 3-5 /HPF (0-5) 11/21/19 19:36 Ur Squamous Epith Cells Moderate /HPF (NEGATIVE) 11/21/19 19:36 Urine Bacteria Trace /HPF (NEGATIVE) 11/21/19 19:36 Urine Mucus Few /HPF (NEGATIVE) 11/21/19 19:36 Ur Culture Indicated? No/not indicated 11/21/19 19:36 - Plan (1) Cellulitis of right leg without foot Status: Acute Plan: INVANZ 1G IV DAILY, GENTAMICIN, WOUND CARE, CONTINUE TO MONITOR (2) Dehydration Status: Acute Plan: NORMAL SALINE AT 75 ML/HR, CONTINUE TO MONITOR (3) Urinary tract infection Status: Acute Qualifiers: Urinary tract infection type: site unspecified Hematuria presence: without hematuria Qualified Code(s): N39.0 - Urinary tract infection, site not specified Plan: INVANZ 1G IV DAILY, CONTINUE TO MONITOR
[2019-11-26] MEDS: SYNTHROID 100 mcg TAB PO SCH (05:07)
[2019-11-26] MEDS: NS 1000 ML 1,000 ML IV SCH ×3 (05:46→20:23)
[2019-11-26 06:09] LABS: BASOPHILS % (AUTO) 0.6 % (0.2-1.0); EOSINOPHILS # (AUTO) 0.2 x10^3/uL (0.0-0.2); EOSINOPHILS % (AUTO) 2.2 % (0.9-2.9); HEMATOCRIT 24.6 % (36.0-47.0); HEMOGLOBIN 7.8 g/dL (12.0-16.0); LYMPHOCYTES # (AUTO) 1.5 X10^3/uL (1.3-2.9); LYMPHOCYTES % (AUTO) 18.2 % (21.0-51.0); MEAN CORPUSCULAR HEMOGLOBIN 21.5 pg (27.0-34.0); MEAN CORPUSCULAR HGB CONC 31.9 g/dL (33.0-35.0); MEAN CORPUSCULAR VOLUME 67.4 fL (80.0-100.0); MEAN PLATELET VOLUME 7.1 fL (7.4-11.0); MONOCYTES # (AUTO) 0.6 x10^3/uL (0.3-0.8); PLATELET COUNT 261 X10^3/uL (150.0-450.0); RED BLOOD COUNT 3.64 X10^6/uL (3.5-5.4); WHITE BLOOD COUNT 8.3 X10^3/uL (3.6-10.0)
[2019-11-26 06:28] LABS: ALANINE AMINOTRANSFERASE 14 Units/L (12-78); ALBUMIN 3.1 g/dL (3.4-5.0); ALKALINE PHOSPHATASE 79 Units/L (46-116); ASPARTATE AMINO TRANSFERASE 31 Units/L (15-37); BLOOD UREA NITROGEN 9 mg/dL (7-18); CALCIUM 7.9 mg/dL (8.5-10.1); CARBON DIOXIDE 26.3 mmol/L (21-32); CHLORIDE 108 mmol/L (98-107); COR CA(FOR HYPOALB) 8.6 mg/dL (8.5-10.1); CREATININE 1.16 mg/dL (0.55-1.02); MAGNESIUM 2.4 mg/dL (1.7-2.9); SODIUM 142 mmol/L (136-145); TOTAL PROTEIN 6.3 g/dL (6.4-8.2); eGFR NON BLACK RACES 48 (>60)
[2019-11-26 07:00] LABS: HYPOCHROMASIA 1+; MICROCYTOSIS 1+; PLATELET MORPHOLOGY COMMENT NORMAL (NORMAL)
[2019-11-26] MEDS: MICRO K EXTEN CAP 10 MEQ PO PRN ×2 (08:46→20:25)
[2019-11-26] MEDS: NexIUM PO SCH (08:46)
[2019-11-26] MEDS: SINGULAIR TAB 10 MG PO SCH (08:46)
[2019-11-26] MEDS: XARELTO PO SCH (08:46)
[2019-11-26] MEDS: TOPROL XL PO SCH ×2 (08:46→20:27)
[2019-11-26] MEDS: INVANZ INJ 1 GM VIAL 1 GM in NS 100 ML IV + SPIKE MINIBAG* 100 ML IV SCH (08:47)
[2019-11-26] MEDS: GENTAMICIN TOPICAL CRM TOP SCH ×2 (08:47→20:24)
[2019-11-26] MEDS: VITAMIN D3 PO SCH (08:48)
[2019-11-26] MEDS: MILK OF MAGNESIA PO SCH ×2 (08:48→20:27)
[2019-11-26] MEDS: PATIENT'S HOME MEDICATION PO SCH ×2 (08:48→20:24)
[2019-11-26] MEDS: ALBUMIN HUMAN 25%- 100 ML 100 ML IV SCH (08:48)
[2019-11-26] MEDS: ULTRAM PO PRN ×2 (09:05→21:57)
[2019-11-26] MEDS ORDERED: LASIX IVP ONE (09:36)
[2019-11-26] MEDS ORDERED: NS 250 ML IV 250 ML IV ONE (11:23)
[2019-11-26] MEDS ORDERED: ZOFRAN TAB 4 MG ONE (12:41)
[2019-11-26] MEDS: ZOFRAN TAB 4 MG SL PRN ×2 (12:41→20:26)
[2019-11-26] MEDS ORDERED: LASIX IVP NR (13:00)
[2019-11-26] MEDS: COLACE CAP 100 MG PO SCH (20:26)
[2019-11-26] MEDS: ZyrTEC TAB 10 MG PO SCH (20:26)
--- NOTE | 2019-11-26 21:05 | PCM.PROG ---
Progress Note - Progress Note for Day of Date of Exam: 11/26/19 - Subjective Subjective: IS BEING TREATED FOR RIGHT LOWER EXTREMITY CELLULITIS, DEHYDRATION, HYPOTENSION, AND A URINARY TRACT INFECTION. TODAY, SHE IS ALERT AND ORIENTED, LYING IN BED ON MORNING ROUNDS. SHE CONTINUES WITH COMPLAINTS OF WEAKNESS AND NAUSEA. ON EXAMINATION, HEART IS REGULAR IN RATE AND RHYTHM. BILATERAL LUNGS ARE NOTED WITH DIMINISHED LUNG SOUNDS THROUGHOUT. ABDOMEN IS ROUND, SOFT, AND NON-TENDER WITH NORMAL BOWEL SOUNDS NOTED IN ALL QUADRANTS. RLE IS NOTED WITH ERYTHEMA AND AN OPEN WOUND. NO DRAINAGE NOTED TODAY. HER VITALS THIS MORNING ARE: 98.6-86-18-96%-164/75. LABS WERE OBTAINED. ABNORMAL LAB VALUES INCLUDE THE FOLLOWING: HGB 7.8, HCT 24.6, POTASSIUM 3.3, CHLORIDE 108, CREATININ E 1.16, CALCIUM 7.9, TOTAL PROTEIN 6.3, ALBUMIN 3.1. RIGHT LEG CULTURE PENDING. URINE CULTURE REVEALED GROWTH OF E.COLI AND KLEBSIELLA PNEUMONIAE. SHE IS CURRENTLY RECEIVING NORMAL SALINE AT 75 ML/HR, THE POTASSIUM AND MAGNESIUM PROTOCOLS, PEPCID IV, ALBUMIN, INVANZ 1G IV DAILY, AND HOME MEDICATIONS WERE RESUMED. DOXYCYCLINE IS ONE OF HER HOME MEDICATIONS. TODAY, WE WILL ADMINISTER TWO UNITS OF PACKED RED BLOOD CELLS. WE WILL ADMINISTER LASIX 20MG IV BEFORE AND TRANSFUSION AND IN BETWEEN UNITS. OTHERWISE, WE WILL CONTINUE WITH CURRENT PLAN OF CARE TODAY. WE PLAN TO FOLLOW UP WITH AM LABS AND CONTINUE TO MONITOR. - Past Medical Family Social History Past Med/Fam/Surg Hx: No changes since H&P Allergies: Allergies acetaminophen [From Percocet] Allergy (Verified 10/02/19 12:26) previous chart listed acetaminiphen from the percocet also diphenhydramine [From Benadryl] Allergy (Verified 10/02/19 12:26) lidocaine Allergy (Verified 10/02/19 12:26) oxycodone [From Percocet] Allergy (Verified 10/02/19 12:26) previous chart listed acetaminiphen from the percocet also Penicillins Allergy (Verified 10/02/19 12:26) Sulfa (Sulfonamide Antibiotics) Allergy (Verified 10/02/19 12:26) tetanus immune globulin Allergy (Verified 10/02/19 12:26) - Review of Systems ROS: No change since H&P - Vital Signs and I&O's Vital Signs: Temperature 98.0 F Pulse Rate [Right Brachial] 88 Pulse Rate [Left Brachial] 86 Respiratory Rate 17 Blood Pressure [Right Arm] 162/71 O2 Sat by Pulse Oximetry 95 Intake and Output: Intake & Output 11/24/19 11/25/19 11/26/19 11/27/19 11:59 11:59 11:59 11:59 Intake Total 2790 / 2790 2640 / 2640 3210 / 3210 440 / 440 Balance 2790 / 2790 2640 / 2640 3210 / 3210 440 / 440 - Physical Exam Oriented: Normal Eyes: Normal Ear: Normal Nose: Normal Throat: Normal Respiratory: Generalized, Diminished Cardiovascular: Normal : Normal Auscultation: Bowel Sounds: Normal Palpation: Normal Tenderness: Normal Skin: Wound (RLE ) Musculoskeletal: Normal Psychiatric: Normal Mood Description: Calm Affect: Normal Speech Pattern: Clear, Appropriate - Laboratory and Diagnostics Result Diagrams: 11/26/19 05:19 11/26/19 10:40 Labs: 11/22/19 11:45 Leg - Right Gram Stain - Final 11/22/19 11:45 Leg - Right Wound Culture - Final 11/23/19 18:40 Urine,Clean Catch Urine Culture - Final Escherichia Coli Klebsiella Pneumoniae Laboratory WBC 8.3 X10^3/uL (3.6-10.0) 11/26/19 05:19 RBC 3.64 X10^6/uL (3.5-5.4) 11/26/19 05:19 Hgb 7.8 g/dL (12.0-16.0) L 11/26/19 05:19 Hct 24.6 % (36.0-47.0) L 11/26/19 05:19 MCV 67.4 fL (80.0-100.0) L 11/26/19 05:19 MCH 21.5 pg (27.0-34.0) L 11/26/19 05:19 MCHC 31.9 g/dL (33.0-35.0) L 11/26/19 05:19 RDW 19.0 % (11.6-16.5) H 11/26/19 05:19 Plt Count 261 X10^3/uL (150.0-450.0) 11/26/19 05:19 Plt Count Comment Adequate (ADEQUATE) 11/26/19 05:19 MPV 7.1 fL (7.4-11.0) L 11/26/19 05:19 Neut % (Auto) 72.0 % (42.0-75.0) 11/26/19 05:19 Lymph % (Auto) 18.2 % (21.0-51.0) L 11/26/19 05:19 [place] % (Auto) 7.0 % (0.0-13.0) 11/26/19 05:19 Eos % (Auto) 2.2 % (0.9-2.9) 11/26/19 05:19 Baso % (Auto) 0.6 % (0.2-1.0) 11/26/19 05:19 Neut # (Auto) 6.0 x10^3/uL (2.2-4.8) H 11/26/19 05:19 Lymph # (Auto) 1.5 X10^3/uL (1.3-2.9) 11/26/19 05:19 [place] # (Auto) 0.6 x10^3/uL (0.3-0.8) 11/26/19 05:19 Eos # (Auto) 0.2 x10^3/uL (0.0-0.2) 11/26/19 05:19 Baso # (Auto) 0.0 X10^3/uL (0.0-0.1) 11/26/19 05:19 Absolute Nucleated RBC 0.1 /100WBC 11/26/19 05:19 Plt Morphology Comment Normal (NORMAL) 11/26/19 05:19 RBC Morphology Abnormal (NORMAL) A 11/26/19 05:19 Hypochromasia 1+ A 11/26/19 05:19 Anisocytosis Slight A 11/25/19 05:12 Microcytosis 1+ A 11/26/19 05:19 Sodium 142 mmol/L (136-145) 11/26/19 05:19 Corrected Sodium TNP 11/26/19 05:19 Potassium 3.4 mmol/L (3.5-5.1) L 11/26/19 10:40 Chloride 108 mmol/L (98-107) H 11/26/19 05:19 Carbon Dioxide 26.3 mmol/L (21-32) 11/26/19 05:19 BUN 9 mg/dL (7-18) 11/26/19 05:19 Creatinine 1.16 mg/dL (0.55-1.02) H 11/26/19 05:19 Est GFR (MDRD) Af Amer 58 (>60) L 11/26/19 05:19 Est GFR (MDRD) Non-Af 48 (>60) L 11/26/19 05:19 Glucose 99 mg/dL (65-99) 11/26/19 05:19 Hemoglobin A1c 5.7 % 11/21/19 14:20 Calcium 7.9 mg/dL (8.5-10.1) L 11/26/19 05:19 Corrected Calcium 8.6 mg/dL (8.5-10.1) 11/26/19 05:19 Magnesium 2.4 mg/dL (1.7-2.9) 11/26/19 05:19 Total Bilirubin 0.50 mg/dL (0.2-1.0) 11/26/19 05:19 AST 31 Units/L (15-37) 11/26/19 05:19 ALT 14 Units/L (12-78) 11/26/19 05:19 Alkaline Phosphatase 79 Units/L (46-116) 11/26/19 05:19 Creatine Kinase 33 Units/L (26-192) 11/21/19 22:16 CK-MB (CK-2) < 1.0 ng/mL (0-4.0) 11/21/19 22:16 CK/CKMB % Calc 3.0 % (<4) 11/21/19 22:16 Troponin I < 0.02 ng/mL (0-1.5) 11/21/19 22:16 Total Protein 6.3 g/dL (6.4-8.2) L 11/26/19 05:19 Albumin 3.1 g/dL (3.4-5.0) L 11/26/19 05:19 Globulin 3.2 g/dL (2.5-4.5) 11/26/19 05:19 Albumin/Globulin Ratio 1.0 Ratio (1.1-2.1) L 11/26/19 05:19 Specimen Type Clean catch urine 11/21/19 19:36 Urine Color Yellow (YELLOW) 11/21/19 19:36 Urine Appearance Hazy (CLEAR) 11/21/19 19:36 Urine pH 6.0 (5.0 - 8.0) 11/21/19 19:36 Ur Specific [place] 1.015 (1.000-1.030) 11/21/19 19:36 Urine Protein 2+ (NEGATIVE) 11/21/19 19:36 Urine Glucose (UA) Negative (NEGATIVE) 11/21/19 19:36 Urine Ketones Negative (NEGATIVE) 11/21/19 19:36 Urine Occult Blood 2+ (NEGATIVE) 11/21/19 19:36 Urine Nitrite Negative (NEGATIVE) 11/21/19 19:36 Urine Bilirubin Negative (NEGATIVE) 11/21/19 19:36 Urine Urobilinogen Normal (NORMAL) 11/21/19 19:36 Ur Leukocyte Esterase 3+ (NEGATIVE) 11/21/19 19:36 Urine RBC 3-5 /HPF (0-3) A 11/21/19 19:36 Urine WBC 3-5 /HPF (0-5) 11/21/19 19:36 Ur Squamous Epith Cells Moderate /HPF (NEGATIVE) 11/21/19 19:36 Urine Bacteria Trace /HPF (NEGATIVE) 11/21/19 19:36 Urine Mucus Few /HPF (NEGATIVE) 11/21/19 19:36 Ur Culture Indicated? No/not indicated 11/21/19 19:36 Blood Type O NEGATIVE 11/26/19 09:52 Antibody Screen Negative 11/26/19 09:52 Crossmatch See Detail 11/26/19 09:52 - Plan (1) Cellulitis of right leg without foot Status: Acute Plan: INVANZ 1G IV DAILY, GENTAMICIN, WOUND CARE, CONTINUE TO MONITOR (2) Dehydration Status: Acute Plan: NORMAL SALINE AT 75 ML/HR, CONTINUE TO MONITOR (3) Urinary tract infection Status: Acute Qualifiers: Urinary tract infection type: site unspecified Hematuria presence: without hematuria Qualified Code(s): N39.0 - Urinary tract infection, site not specified Plan: INVANZ 1G IV DAILY, CONTINUE TO MONITOR (4) Anemia Status: Acute Qualifiers: Anemia type: iron deficiency Iron deficiency anemia type: unspecified iron deficiency Qualified Code(s): D50.9 - Iron deficiency anemia, unspecified Plan: TRANSFUSE 2 UNITS PRBC, CONTINUE TO MONITOR
[2019-11-26] MEDS: PEPCID 20 MG IV PREMIX* 20 MG/50 ML BAG IV SCH (21:57)
[2019-11-26 22:02] LABS: HEMATOCRIT 33.4 % (36.0-47.0); HEMOGLOBIN 10.9 g/dL (12.0-16.0)
[2019-11-27] MEDS: SYNTHROID 100 mcg TAB PO SCH (05:36)
[2019-11-27 06:31] LABS: BASOPHILS % (AUTO) 0.5 % (0.2-1.0); EOSINOPHILS # (AUTO) 0.2 x10^3/uL (0.0-0.2); EOSINOPHILS % (AUTO) 2.8 % (0.9-2.9); HEMATOCRIT 33.2 % (36.0-47.0); HEMOGLOBIN 10.8 g/dL (12.0-16.0); LYMPHOCYTES # (AUTO) 1.6 X10^3/uL (1.3-2.9); LYMPHOCYTES % (AUTO) 20.7 % (21.0-51.0); MEAN CORPUSCULAR HEMOGLOBIN 23.3 pg (27.0-34.0); MEAN CORPUSCULAR HGB CONC 32.6 g/dL (33.0-35.0); MEAN CORPUSCULAR VOLUME 71.5 fL (80.0-100.0); MONOCYTES # (AUTO) 0.7 x10^3/uL (0.3-0.8); MONOCYTES % (AUTO) 8.7 % (0.0-13.0); NEUTROPHILS # (AUTO) 5.3 x10^3/uL (2.2-4.8); NEUTROPHILS % (AUTO) 67.3 % (42.0-75.0); PLATELET COUNT 251 X10^3/uL (150.0-450.0); RED BLOOD COUNT 4.65 X10^6/uL (3.5-5.4); RED CELL DISTRIBUTION WIDTH 21.2 % (11.6-16.5); WHITE BLOOD COUNT 7.9 X10^3/uL (3.6-10.0)
[2019-11-27 07:03] LABS: ANISOCYTOSIS 1+; HYPOCHROMASIA 1+; MICROCYTOSIS SLIGHT; PLATELET MORPHOLOGY COMMENT NORMAL (NORMAL)
[2019-11-27 07:05] LABS: ALANINE AMINOTRANSFERASE 14 Units/L (12-78); ALBUMIN 3.5 g/dL (3.4-5.0); ALKALINE PHOSPHATASE 81 Units/L (46-116); ASPARTATE AMINO TRANSFERASE 35 Units/L (15-37); BLOOD UREA NITROGEN 7 mg/dL (7-18); CALCIUM 8.1 mg/dL (8.5-10.1); CARBON DIOXIDE 27.7 mmol/L (21-32); CHLORIDE 106 mmol/L (98-107); CREATININE 1.26 mg/dL (0.55-1.02); SODIUM 142 mmol/L (136-145); TOTAL PROTEIN 6.8 g/dL (6.4-8.2); eGFR NON BLACK RACES 44 (>60)
[2019-11-27] MEDS: SINGULAIR TAB 10 MG PO SCH (08:36)
[2019-11-27] MEDS: NexIUM PO SCH (08:36)
[2019-11-27] MEDS: TOPROL XL PO SCH (08:36)
[2019-11-27] MEDS: XARELTO PO SCH (08:36)
[2019-11-27] MEDS: ALBUMIN HUMAN 25%- 100 ML 100 ML IV SCH (08:45)
[2019-11-27 09:43] VITALS: BP 142/76
[2019-11-27] MEDS: VITAMIN D3 PO SCH (09:43)
[2019-11-27] MEDS: GENTAMICIN TOPICAL CRM TOP SCH (09:44)
[2019-11-27] MEDS: PATIENT'S HOME MEDICATION PO SCH (09:44)
[2019-11-27] MEDS: MILK OF MAGNESIA PO SCH (09:44)
[2019-11-27] MEDS: INVANZ INJ 1 GM VIAL 1 GM in NS 100 ML IV + SPIKE MINIBAG* 100 ML IV SCH (09:44)
[2019-11-27] MEDS: NS 1000 ML 1,000 ML IV SCH (12:44)
== END 2019-11-27 11:50 | disposition home health service (06) | DRG 603 ==
LOC: MED/SURG → OBSVTOIN 12:59
PROVIDERS: ADMIT Internal Medicine; ATTEND Internal Medicine
DX: E86.0 Dehydration; B96.1 Klebsiella pneumoniae [K. pneumoniae] as the cause of diseases classified elsewhere; B96.29 Other Escherichia coli [E. coli] as the cause of diseases classified elsewhere; Z86.718 Personal history of other venous thrombosis and embolism; R94.31 Abnormal electrocardiogram [ECG] [EKG]; I48.91 Unspecified atrial fibrillation; N39.0 Urinary tract infection, site not specified; I95.89 Other hypotension; D50.8 Other iron deficiency anemias; R63.0 Anorexia; I10 Essential (primary) hypertension; R53.1 Weakness; L03.115 Cellulitis of right lower limb
CPT/HCPCS: 36415; 71010; 71045; 80053; 81001; 82550; 82553; 83036; 83735; 84132; 84484; 85014; 85018; 85025; 86850; 86900; 86901; 86922; 87070; 87075; 87086; 87088; 87186; 87205; 93005; A4222; J1335; J1940; J3475; J3490; J7030; J7050; J7060; P9016; P9047; Q0169; S0028; S0119; S0181

== ENCOUNTER 2021-09-22 15:34 | Observation (INO) ==
[2021-09-22 15:47] VITALS: BMI 26.5
[2021-09-22] MEDS ORDERED: ZOFRAN INJ 4 MG VIAL IM ONE (16:19)
[2021-09-22] MEDS ORDERED: DEMEROL INJ IM ONE (16:19)
[2021-09-22] MEDS ORDERED: ADACEL or BOOSTRIX TDaP VACCINE IM ONE ×2 (16:19→16:40)
--- NOTE | 2021-09-22 16:22 | DR.EXTPAIN ---
HPI Time seen Time Seen by Provider: 09/22/21 16:15 PCP Primary Care Physician: DEVAUGHN PERALES Complaint/Symptoms Chief Complaint:: PT SPOUSE STATES HE WAS GETTING PT OUT OF HER LIFT RECLINER AT HOME TO GET INTO TO GO TO A [facility] TODAY. PT PASSED OUT AND FELL. SHE OBTAINED A LARGE SKIN TEAR ON RIGHT UPPER ARM, LARGE BRUISE ON RIGHT HIP THAT IS HARD TO TOUCH. Self Treatment fo Chief Complaint: FAMILY CALLED EMS IN [place] TO TRANSPORT PT TO ER, BUT THEY WERE UNABLE TO TRANSPORT TO [facility]. EMS ASSISTED PT INTO PRIVATE VEHICLE FOR FAMILY TO TRANSPORT PT TO ER OF CHOICE. EMS CK BS AT HOME, 281. COVID-19 Coronavirus risk:travel/contact w/high risk person: No Has patient experienced Coronavirus symptoms: No Source History Provided: Patient and Significant Other Mode of arrival Mode of Arrival: Stretcher Timing Onset of Chief Complaint: 09/22/21 PMH PMH Past Medical History: Yes Past Medical History: Anemia, Coronary Artery Disease, Hypertension, Hyperthyroidism and PUD Past Medical History Comment: BLOOD CLOTS Past Surgical History: Yes Surgical History: Cholecystectomy, Hysterectomy, Ortho Surgery and Thyroidectomy Family History History of Family Medical Conditions: Yes Family Medical History: Cancer, Coronary Artery Disease and Hypertension Social History Does any household member use tobacco: No Alcohol Use: None Do you use any recreational Drugs:: No Lives With: Spouse Lives Where: Home Travel Risk Coronavirus risk:travel/contact w/high risk person: No Has patient experienced Coronavirus symptoms: No Infectious screening In the last 2 months have you had wt loss of >10#?: NO Have you had fever, night sweats or hemotysis?: No Have you traveled outside the country in the last 6 months?: No Isolation: Standard PE Vital Signs Vitals: Temperature 98.1 F Pulse Rate 68 Respiratory Rate 17 Blood Pressure [Right Arm] 142/76 Blood Pressure 101/47 O2 Sat by Pulse Oximetry 100 ROR Labs Reviewed Result Diagrams: 09/22/21 22:47 09/22/21 22:47 Laboratory: WBC 13.2 X10^3/uL (3.6-10.0) H 09/22/21 22:47 RBC 3.84 X10^6/uL (3.5-5.4) 09/22/21 22:47 Hgb 9.6 g/dL (12.0-16.0) L 09/22/21 22:47 Hct 29.1 % (36.0-47.0) L 09/22/21 22:47 MCV 75.6 fL (80.0-100.0) L 09/22/21 22:47 MCH 24.9 pg (27.0-34.0) L 09/22/21 22:47 MCHC 32.9 g/dL (33.0-35.0) L 09/22/21 22:47 RDW 16.4 % (11.6-16.5) 09/22/21 22:47 Plt Count 310 X10^3/uL (150.0-450.0) 09/22/21 22:47 MPV 7.4 fL (7.4-11.0) 09/22/21 22:47 Neut % (Auto) 76.9 % (42.0-75.0) H 09/22/21 22:47 Lymph % (Auto) 14.1 % (21.0-51.0) L 09/22/21 22:47 [place] % (Auto) 8.7 % (0.0-13.0) 09/22/21 22:47 Eos % (Auto) 0.0 % (0.9-2.9) L 09/22/21 22:47 Baso % (Auto) 0.3 % (0.2-1.0) 09/22/21 22:47 Neut # (Auto) 10.2 x10^3/uL (2.2-4.8) H 09/22/21 22:47 Lymph # (Auto) 1.9 X10^3/uL (1.3-2.9) 09/22/21 22:47 [place] # (Auto) 1.2 x10^3/uL (0.3-0.8) H 09/22/21 22:47 Eos # (Auto) 0.0 x10^3/uL (0.0-0.2) 09/22/21 22:47 Baso # (Auto) 0.0 X10^3/uL (0.0-0.1) 09/22/21 22:47 Absolute Nucleated RBC 0.2 /100WBC 09/22/21 22:47 Sodium 140 mmol/L (136-145) 09/22/21 22:47 Corrected Sodium 141 mmol/L (136-145) 09/22/21 22:47 Potassium 3.9 mmol/L (3.5-5.1) 09/22/21 22:47 Chloride 103 mmol/L (98-107) 09/22/21 22:47 Carbon Dioxide 26.3 mmol/L (21-32) 09/22/21 22:47 BUN 28 mg/dL (7-18) H 09/22/21 22:47 Creatinine 2.05 mg/dL (0.55-1.02) H 09/22/21 22:47 Est GFR (MDRD) Af Amer 30 (>60) L 09/22/21 22:47 Est GFR (MDRD) Non-Af 25 (>60) L 09/22/21 22:47 Glucose 160 mg/dL (65-99) H 09/22/21 22:47 Calcium 8.6 mg/dL (8.5-10.1) 09/22/21 22:47 Corrected Calcium 9.2 mg/dL (8.5-10.1) 09/22/21 22:47 Total Bilirubin 0.80 mg/dL (0.2-1.0) 09/22/21 22:47 AST 35 Units/L (15-37) 09/22/21 22:47 ALT 15 Units/L (12-78) 09/22/21 22:47 Alkaline Phosphatase 83 Units/L (46-116) 09/22/21 22:47 Creatine Kinase 105 Units/L (26-192) 09/22/21 22:47 CK-MB (CK-2) 2.0 ng/mL (0-4.0) 09/22/21 22:47 CK/CKMB % Calc 1.9 % (<4) 09/22/21 22:47 Troponin I < 0.02 ng/mL (0-1.5) 09/22/21 22:47 Total Protein 6.6 g/dL (6.4-8.2) 09/22/21 22:47 Albumin 3.2 g/dL (3.4-5.0) L 09/22/21 22:47 Globulin 3.4 g/dL (2.5-4.5) 09/22/21 22:47 Albumin/Globulin Ratio 0.9 Ratio (1.1-2.1) L 09/22/21 22:47 SARS-CoV-2 (PCR) Negative (NEGATIVE) 09/22/21 23:57 Influenza Type A (PCR) Negative (NEGATIVE) 09/22/21 23:57 Influenza Type B (PCR) Negative (NEGATIVE) 09/22/21 23:57 RSV (PCR) Negative (NEGATIVE) 09/22/21 23:57 Opioid Opioid Risk Tool Age ([place] box if 16-45): No History of Preadolescent Sexual Abuse: No Total: 0 Total Score Risk Category: Low Risk Copyright: Xavier SANTOS predicting aberrant behaviors Diagnosis Discharge Problem: Contusion of scalp, Headache, Clavicle fracture, Sprain of shoulder, right, Hip pain, right, Leg pain, right, Acute cervical sprain, Skin tear, Lumbar back pain Instructions Forms: Precautions for COVID19 [facility] Social Distancing
[2021-09-22] MEDS ORDERED: DEMEROL INJ ONE ×2 (16:39→23:06)
[2021-09-22] MEDS ORDERED: ZOFRAN INJ 4 MG VIAL ONE ×2 (16:39→23:06)
--- NOTE | 2021-09-22 17:36 | CT ---
HISTORYTRAUMA/PAINSTUDYHEAD (TRAUMA)COMPARISONNoneTECHNIQUE coronal sagittal planes also generated for review.FINDINGSThere is age-appropriate generalized cerebral atrophy with commensurate ventricular and sulcal enlargement. There is no intracranial hemorrhage, extra-axial collection, hydrocephalus, mass or midline shift. Visualized paranasal sinuses and mastoid air cells are clear. Imaged extracranial structures are grossly unremarkable.IMPRESSIONNo acute intracranial abnormality.Electronically signed by: JULIUS GASPAR (Sep 22, 2021 17:34:45)
--- NOTE | 2021-09-22 17:40 | CT ---
HISTORYTRAUMA/PAINSTUDYCERVICAL SPINE W/O CONCOMPARISONNone available.TECHNIQUEAxial non-contrast images of the cervical spine with coronal and sagittal reformats.Radiation dose: 2365.90 mGy-cm total DLPFINDINGSNo acute fracture.Normal alignment.Vertebral body heights maintained.Pre-vertebral soft tissues are normal.No clinically significant spinal stenosis.Multilevel neural foraminal narrowing.Multilevel mild-moderate degenerative disc disease with bulky anterior endplate marginal osteophytes.Moderate degenerative changes at the atlantoaxial interval.Multilevel mild-moderate facet and moderate-severe uncovertebral degenerative changes.Soft tissues are unremarkable.Lung apices are unremarkable.IMPRESSION1. No acute abnormality identified.2. Multilevel degenerative disc and joint changes resulting in multilevel neural foraminal narrowing.Electronically signed by: Tristan Lynn (Sep 22, 2021 17:38:24)
--- NOTE | 2021-09-22 19:05 | RAD ---
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
--- NOTE | 2021-09-22 19:07 | RAD ---
HISTORYTRAUMA/PAINSTUDYHIP-RIGHTCOMPARIS ONNone availableTECHNIQUERight hip radiographs, 2 views, AP pelvis and frog leg lateral projectionsFINDINGSNo fracture or dislocation.Moderate right and severe left hip joint degenerative changes.Degenerative disc disease in the imaged portion of the lumbar spine.Soft tissues are unremarkable.IMPRESSIONNo acute osseous abnormality.Electronically signed by: Tristan Lynn (Sep 22, 2021 19:06:14)
--- NOTE | 2021-09-22 19:09 | RAD ---
HISTORYTRAUMA/PAINSTUDYHUMERUS, RIGHTCOMPARISONNone availableTECHNIQUERight humerus radiographs, 2 views, AP and lateral projections, 2 imagesFINDINGSMinimally displaced fracture in the distal aspect of the right clavicle.Mild acromioclavicular joint degenerative changes.Elbow appears normal.Soft tissues are unremarkable.IMPRESSIONMinimally displaced fracture in the distal aspect of the right clavicle. No additional fractures are identified.Electronically signed by: Tristan Lynn (Sep 22, 2021 19:07:51)
[2021-09-22] MEDS ORDERED: NS 1,000 ML IV 1,000 ML ONE (22:39)
[2021-09-22 22:56] LABS: BASOPHILS % (AUTO) 0.3 % (0.2-1.0); HEMATOCRIT 29.1 % (36.0-47.0); HEMOGLOBIN 9.6 g/dL (12.0-16.0); LYMPHOCYTES # (AUTO) 1.9 X10^3/uL (1.3-2.9); LYMPHOCYTES % (AUTO) 14.1 % (21.0-51.0); MEAN CORPUSCULAR HEMOGLOBIN 24.9 pg (27.0-34.0); MEAN CORPUSCULAR HGB CONC 32.9 g/dL (33.0-35.0); MEAN CORPUSCULAR VOLUME 75.6 fL (80.0-100.0); MEAN PLATELET VOLUME 7.4 fL (7.4-11.0); MONOCYTES # (AUTO) 1.2 x10^3/uL (0.3-0.8); MONOCYTES % (AUTO) 8.7 % (0.0-13.0); NEUTROPHILS # (AUTO) 10.2 x10^3/uL (2.2-4.8); NEUTROPHILS % (AUTO) 76.9 % (42.0-75.0); PLATELET COUNT 310 X10^3/uL (150.0-450.0); RED BLOOD COUNT 3.84 X10^6/uL (3.5-5.4); RED CELL DISTRIBUTION WIDTH 16.4 % (11.6-16.5); WHITE BLOOD COUNT 13.2 X10^3/uL (3.6-10.0)
[2021-09-22] MEDS: NS 1,000 ML IV 1,000 ML IV SCH (22:56)
[2021-09-22] MEDS ORDERED: ZOFRAN INJ 4 MG VIAL IVP ONE (23:00)
[2021-09-22 23:21] LABS: ALANINE AMINOTRANSFERASE 15 Units/L (12-78); ALBUMIN 3.2 g/dL (3.4-5.0); ALKALINE PHOSPHATASE 83 Units/L (46-116); ASPARTATE AMINO TRANSFERASE 35 Units/L (15-37); BLOOD UREA NITROGEN 28 mg/dL (7-18); CALCIUM 8.6 mg/dL (8.5-10.1); CARBON DIOXIDE 26.3 mmol/L (21-32); CHLORIDE 103 mmol/L (98-107); CKMB % 1.9 % (<4); COR CA(FOR HYPOALB) 9.2 mg/dL (8.5-10.1); COR NA(FOR HYPERGLY) 141 mmol/L (136-145); CREATINE KINASE 105 Units/L (26-192); CREATININE 2.05 mg/dL (0.55-1.02); SODIUM 140 mmol/L (136-145); TOTAL PROTEIN 6.6 g/dL (6.4-8.2); TROPONIN I < 0.02 ng/mL (0-1.5); eGFR NON BLACK RACES 25 (>60)
[2021-09-22] MEDS: DEMEROL INJ IVP ONE ×2 (23:23→23:24)
--- NOTE | 2021-09-22 23:57 | CT ---
PROCEDURE: CT Lumbar Spine without Contrast .HISTORY: TRAUMA - PAIN .TECHNIQUE: Axial images were performed through the lumbar spine without the administration of IV contrast with multiplanar reformations . Dose reduction techniques including Automated Exposure Control (AEC) and adjustment of mA and kV were utilized .COMPARISON: None .TECHNICAL QUALITY: Satisfactory .FINDINGS:No fracture or displacement.No disc space narrowing. Mild to moderate spondylosis throughout the visualized thoracolumbar spine. Some vacuum phenomenon consistent with severely degenerated disc L4-L5.Facet show normal alignment spinous processes are unremarkable.Multilevel mild spinal canal stenosis related to spondylosis and mild facet hypertrophy L2-L3 through L4-L5 levels.No herniated disc.Moderate neuroforaminal narrowing on the left L5-S1 related to spondylosis and facet hypertrophy.No paraspinal soft tissue abnormality.IMPRESSION:1. No acute bony abnormality.2. Degenerative disc disease and spondylosis.3. Multilevel mild spinal canal stenosis.4. Moderate neuroforaminal narrowing on the left at L5-S1.Electronically signed by: Kong Mittal (Sep 22, 2021 23:56:08)
--- NOTE | 2021-09-23 00:01 | CT ---
PROCEDURE: CT Right Hip without Contrast .HISTORY: Right hip pain and osteoarthritic changes on plain film.TECHNIQUE: Axial images were performed through the right hip without the administration of IV contrast with multiplanar reformations . Dose reduction techniques including Automated Exposure Control (AEC) and adjustment of mA and kV were utilized .COMPARISON: Correlated with 09/22/2021 right hip x-rays.TECHNICAL QUALITY: Satisfactory .FINDINGS:No fracture or dislocation.No lytic or blastic lesions.Moderate osteoarthritic changes left hip with joint space narrowing, spur formation, and subchondral cyst formation involving right femoral head.Some spur formation off the greater and lesser trochanter.No joint effusion.Multilobulated hyperdense mass lateral to the right hip consistent with hematoma formation measuring up to 6 cm in diameter with adjacent stranding in subcutaneous fat.IMPRESSION:1. No acute bony abnormality.2. Moderate osteoarthritic changes right hip.3. Degenerative changes adjacent to the trochanters.4. Hematoma formation and hemorrhage subcutaneous fat lateral to the right hip.Electronically signed by: Kong Mittal (Sep 23, 2021 00:00:12)
[2021-09-23] MEDS ORDERED: DEMEROL INJ IVP PRN (01:26)
[2021-09-23] MEDS ORDERED: ZOFRAN INJ 4 MG VIAL IVP SCH (02:00)
[2021-09-23] MEDS: NS 1,000 ML IV 1,000 ML IV SCH ×4 (06:36→18:05)
[2021-09-23] MEDS ORDERED: ZOFRAN INJ 4 MG VIAL IVP PRN (06:38)
[2021-09-23 06:52] LABS: BASOPHILS % (AUTO) 0.3 % (0.2-1.0); HEMATOCRIT 25.9 % (36.0-47.0); HEMOGLOBIN 8.4 g/dL (12.0-16.0); LYMPHOCYTES # (AUTO) 2.1 X10^3/uL (1.3-2.9); LYMPHOCYTES % (AUTO) 18.7 % (21.0-51.0); MEAN CORPUSCULAR HEMOGLOBIN 24.6 pg (27.0-34.0); MEAN CORPUSCULAR HGB CONC 32.4 g/dL (33.0-35.0); MEAN CORPUSCULAR VOLUME 75.7 fL (80.0-100.0); MEAN PLATELET VOLUME 7.9 fL (7.4-11.0); MONOCYTES # (AUTO) 1.1 x10^3/uL (0.3-0.8); NEUTROPHILS # (AUTO) 8.1 x10^3/uL (2.2-4.8); PLATELET COUNT 261 X10^3/uL (150.0-450.0); RED BLOOD COUNT 3.42 X10^6/uL (3.5-5.4); RED CELL DISTRIBUTION WIDTH 16.2 % (11.6-16.5); WHITE BLOOD COUNT 11.4 X10^3/uL (3.6-10.0)
[2021-09-23 07:04] LABS: ALANINE AMINOTRANSFERASE 13 Units/L (12-78); ALBUMIN 2.9 g/dL (3.4-5.0); ALKALINE PHOSPHATASE 74 Units/L (46-116); ASPARTATE AMINO TRANSFERASE 30 Units/L (15-37); BLOOD UREA NITROGEN 32 mg/dL (7-18); CALCIUM 8.1 mg/dL (8.5-10.1); CARBON DIOXIDE 25.7 mmol/L (21-32); CHLORIDE 105 mmol/L (98-107); CKMB % 2.1 % (<4); COR NA(FOR HYPERGLY) 142 mmol/L (136-145); CREATINE KINASE 82 Units/L (26-192); CREATINE KINASE MB 1.7 ng/mL (0-4.0); CREATININE 2.31 mg/dL (0.55-1.02); SODIUM 141 mmol/L (136-145); TROPONIN I < 0.02 ng/mL (0-1.5); eGFR NON BLACK RACES 22 (>60)
[2021-09-23 11:40] LABS: CKMB % 1.9 % (<4); CREATINE KINASE 79 Units/L (26-192); CREATINE KINASE MB 1.5 ng/mL (0-4.0); TROPONIN I < 0.02 ng/mL (0-1.5)
[2021-09-23 12:11] LABS: BILIRUBIN,URINE NEGATIVE (NEGATIVE); BLOOD/HEMOGLOBIN,URINE 2+ (NEGATIVE); GLUCOSE, URINE NEGATIVE (NEGATIVE); KETONES,URINE NEGATIVE (NEGATIVE); LEUKOCYTE ESTERASE ,URINE NEGATIVE (NEGATIVE); NITRITES,URINE NEGATIVE (NEGATIVE); PROTEIN,URINE 1+ (NEGATIVE); UROBILINOGEN,URINE NORMAL (NORMAL)
[2021-09-23 12:21] LABS: APPEARANCE,URINE SLIGHTLY HAZY (CLEAR); BACTERIA,URINE 2+ /HPF (NEGATIVE); COLOR,URINE YELLOW (YELLOW); SQUAMOUS EPITHELIAL CELL,UR FEW /HPF (NEGATIVE)
[2021-09-23 12:22] LABS: HYALINE CASTS, URINE MODERATE /LPF (NEGATIVE); MUCUS,URINE FEW /HPF (NEGATIVE)
--- NOTE | 2021-09-23 12:37 | DR.H&P ---
H&P - History & Physical for Day of: H&P Date: 09/23/21 - Chief Complaint Chief Complaint: RIGHT ARM/SHOULDER PAIN, RIGHT HIP PAIN, SYNCOPE, HEADACHE, WEAKNESS - History of Present Illness History of Present Illness: IS A 81 YEAR OLD PATIENT OF OURS. SHE PRESENTED TO THE ER WITH REPORTS OF RIGHT UPPER ARM/SHOULD PAIN, RIGHT HIP PAIN, HEADACHE, AND GENERALIZED WEAKNESS FOLLOWING A SYNCOPAL EPISODE AT HOME EARLIER IN THE DAY. PATIENT HAS A LARGE SKIN TEAR TO THE RIGHT UPPER ARM AND A LARGE BRUISE/SWOLLEN AREA TO THE RIGHT HIP. THAT AREA IS HARD TO THE TOUCH. PATIENT REPORTS THAT SHE IS UNABLE TO BEAR WEIGHT ON THE RIGHT LEG DUE TO PAIN. PATIENT HAS A PMH OF ANEMIA, CAD, HTN, HYPERTHYROIDISM, PUD, DVT, CHOLECYSTECTOMY, HYSTERECTOMY, THYROIDECTOMY. ON ARRIVAL, HER VITALS WERE 98.1-83-17-99%-113/85. LABS WERE OBTAINED. ABNORMAL LAB VALUES INCLUDE THE FOLLOWING: WBC 13.2, HGB 9.6, HCT 29.1, BUN 28, CREATININE 2.05, GLUCOSE 160, ALBUMIN 3.2. CARDIAC ENZYMES WERE WITHIN NORMAL LIMITS. URINALYSIS WAS OBTAINED AND REVEALED: WBC 3- 5, RBC 3-5, OCCULT BLOOD 2+, BACTERIA 2+, PROTEIN 1+. A URINE CULTURE WAS SET UP. A C-SPINE CT WAS OBTAINED AND REVEALED: 1. No acute abnormality identified. 2. Multilevel degenerative disc and joint changes resulting in multilevel neural foraminal narrowing. HEAD CT WAS WITHOUT ABNORMALITY. RIGHT HIP XRAY WAS WITHOUT ABNORMALITY. RIGHT HUMERUS XRAY REVEALED: Minimally displaced fracture in the distal aspect of the right clavicle. No additional fractures are identified. RIGHT TIB/FIB XRAY WITHOUT ABNORMALITY. RIGHT LOWER EXTREMITY CT REVEALED: 1. No acute bony abnormality. 2. Moderate osteoarthritic changes right hip. 3. Degenerative changes adjacent to the trochanters. 4. Hematoma formation and hemorrhage subcutaneous fat lateral to the right hip. LUMBAR SPINE CT REVEALED: 1. No acute bony abnormality. 2. Degenerative disc disease and spondylosis. 3. Multilevel mild spinal canal stenosis. 4. Moderate neuroforaminal narrowing on the left at L5-S1. EKG REVEALED: SINUS RHYTHM WITH HR 80. WHILE IN THE ER, PATIENTS BLOOD PRESSURE DID DECREASE TO 94/56. SHE WAS GIVEN DEMEROL AND ZOFRAN IN THE ER WITHOUT SIGNIFICANT RELIEF OF PAIN. SHE WAS ADMITTED TO THE HOSPITAL FOR FURTHER EVALUATION AND TREATMENT OF SYNCOPE, DEHYDRATION, RIGHT CLAVICAL FX, RIGHT HIP HEMATOMA/HEMORRHAGE, INTRACTABLE PAIN. SHE WAS STARTED ON NORMAL SALINE AT 125ML/HR, DEMEROL 25MG IV Q6H PRN PAIN, ZOFRAN 4MG IV Q6H PRN NAUSEA. WE WILL REVIEW HER HOME MEDICATIONS. OTHERWISE, WE PLAN TO FOLLOW UP WITH AM LABS AND CONTINUE TO MONITOR. TIME SPENT ON CLINICAL ASSESSMENT, REVIEWING LABS AND IMAGING, DECISION MAKING, AND DOCUMENTATION GREATER THAN 75 MINUTES. - Past Medical History Past Medical History: Coronary Artery Disease, Hypertension, Hyperthyroidism, Anemia, PUD - Past Surgical History Surgical History: Cholecystectomy, Hysterectomy, Ortho Surgery, Thyroidectomy - Family History Family Medical History: Cancer, Coronary Artery Disease, Hypertension - Social History Does any household member use tobacco: No Alcohol Use: None Drug Use: None - Medications Home Medications: diphenhydramine [From Benadryl] Allergy (Verified 10/02/19 12:26) lidocaine Allergy (Verified 10/02/19 12:26) oxycodone [From Percocet] Allergy (Verified 10/02/19 12:26) Penicillins Allergy (Verified 10/02/19 12:26) Sulfa (Sulfonamide Antibiotics) Allergy (Verified 10/02/19 12:26) tetanus immune globulin Allergy (Verified 10/02/19 12:26) adhesive tape Adverse Reaction (Severe, Verified 09/23/21 01:26) CONTINUE taking the following medications ibuprofen 200 mg PO Q6H PRN 09/23/21 [History] levothyroxine 100 mcg PO DAILY 09/23/21 [History] prednisolone acetate 1 drp OPHTHALMIC (EYE) .4XD 09/23/21 [History] - Review of Systems Constitutional: Weakness Eyes: No Symptoms Reported ENT: No Symptoms Reported Respiratory: No Symptoms Reported Cardiovascular: Light Headedness Gastrointestinal: No Symptoms Reported Genitourinary: No Symptoms Reported Musculoskeletal: See HPI, Shoulder Pain, Arm Pain, Leg Pain, Other (RIGHT HIP/LEG PAIN ) Skin: No Symptoms Reported Neurological: Weakness - Physical Exam Vital Signs: Temperature 98.3 F Pulse Rate [Apical] 87 Pulse Rate 68 Respiratory Rate 20 Blood Pressure [Right Arm] 133/61 Blood Pressure 101/47 O2 Sat by Pulse Oximetry 98 Oriented: Normal Eyes: Normal Ear: Normal Nose: Normal Throat: Normal Respiratory: Diminished Throughout Cardiovascular: Normal : Normal Auscultation: Bowel Sounds: Normal Palpation: Normal Tenderness: Normal Skin: Decreased Turgur Musculoskeletal: Right, Shoulder, Clavicle, Arm, Hip (RIGHT HIP HEMATOMA ), Tender Psychiatric: Normal Mood Description: Calm Affect: Normal Speech Pattern: Clear - Assessment/Plan (1) Dehydration Status: Acute Plan: ADMIT, NORMAL SALINE AT 125ML/HR, DEMEROL 25MG IV Q6H PRN PAIN, ZOFRAN 4MG IV Q6H PRN NAUSEA. (2) Syncope Qualifiers: Syncope type: unspecified Qualified Code(s): R55 - Syncope and collapse Status: Acute (3) Clavicle fracture Qualifiers: Encounter type: initial encounter Clavicle location: unspecified part of clavicle Fracture type: closed Fracture alignment: displaced Laterality: right Qualified Code(s): S42.001A - Fracture of unspecified part of right clavicle, initial encounter for closed fracture Status: Acute (4) Sprain of shoulder, right Qualifiers: Encounter type: initial encounter Shoulder sprain type: unspecified sprain Qualified Code(s): S43.401A - Unspecified sprain of right shoulder joint, initial encounter Status: Acute (5) Contusion of scalp Qualifiers: Encounter type: initial encounter Qualified Code(s): S00.03XA - Contusion of scalp, initial encounter Status: Acute (6) Headache Qualifiers: Headache type: unspecified Headache chronicity pattern: acute headache Intractability: not intractable Qualified Code(s): R51.9 - Headache, unspecified Status: Acute (7) Hip pain, right Status: Acute (8) Leg pain, right Status: Acute (9) Skin tear Status: Acute - Allergies Allergies/Adverse Reactions: Allergies Allergy/AdvReac Type Severity Reaction Status Date / Time diphenhydramine Allergy Verified 10/02/19 12:26 [From Benadryl] lidocaine Allergy Verified 10/02/19 12:26 oxycodone [From Percocet] Allergy Verified 10/02/19 12:26 Penicillins Allergy Verified 10/02/19 12:26 Sulfa (Sulfonamide Allergy Verified 10/02/19 12:26 Antibiotics) tetanus immune globulin Allergy Verified 10/02/19 12:26 adhesive tape AdvReac Severe Verified 09/23/21 01:26
[2021-09-23] MEDS ORDERED: MICRO K EXTEN CAP 10 MEQ PO PRN (12:44)
[2021-09-23] MEDS: MILNACIPRAN 25 MG PO SCH ×2 (14:11→21:27)
[2021-09-23] MEDS: PRED FORTE 1 % OP SCH ×3 (14:12→21:27)
[2021-09-23] MEDS: SINGULAIR TAB 10 MG PO SCH (14:12)
[2021-09-23] MEDS: NexIUM PO SCH (14:12)
[2021-09-23] MEDS: SYNTHROID 100 mcg TAB PO SCH (14:12)
[2021-09-23] MEDS: ULTRAM PO PRN ×2 (14:12→20:27)
[2021-09-23] MEDS: PEPCID TAB 20 MG PO SCH (20:27)
[2021-09-23] MEDS: TOPROL XL PO SCH (20:27)
[2021-09-24] MEDS: NS 1,000 ML IV 1,000 ML IV SCH ×4 (01:46→17:40)
[2021-09-24] MEDS ORDERED: VITAMIN D3 125 mcg (5,000 UNITS) ONE (06:49)
[2021-09-24 06:53] LABS: BASOPHILS % (AUTO) 0.5 % (0.2-1.0); EOSINOPHILS # (AUTO) 0.1 x10^3/uL (0.0-0.2); EOSINOPHILS % (AUTO) 0.9 % (0.9-2.9); HEMATOCRIT 21.8 % (36.0-47.0); HEMOGLOBIN 7.2 g/dL (12.0-16.0); LYMPHOCYTES # (AUTO) 1.8 X10^3/uL (1.3-2.9); LYMPHOCYTES % (AUTO) 24.7 % (21.0-51.0); MEAN CORPUSCULAR HEMOGLOBIN 25.2 pg (27.0-34.0); MEAN CORPUSCULAR VOLUME 76.3 fL (80.0-100.0); MEAN PLATELET VOLUME 7.7 fL (7.4-11.0); MONOCYTES # (AUTO) 0.9 x10^3/uL (0.3-0.8); MONOCYTES % (AUTO) 11.9 % (0.0-13.0); NEUTROPHILS # (AUTO) 4.6 x10^3/uL (2.2-4.8); PLATELET COUNT 182 X10^3/uL (150.0-450.0); RED BLOOD COUNT 2.86 X10^6/uL (3.5-5.4); RED CELL DISTRIBUTION WIDTH 16.1 % (11.6-16.5); WHITE BLOOD COUNT 7.4 X10^3/uL (3.6-10.0)
[2021-09-24 07:08] LABS: ALANINE AMINOTRANSFERASE 13 Units/L (12-78); ALBUMIN 2.4 g/dL (3.4-5.0); ALKALINE PHOSPHATASE 66 Units/L (46-116); ASPARTATE AMINO TRANSFERASE 30 Units/L (15-37); BLOOD UREA NITROGEN 21 mg/dL (7-18); CALCIUM 7.6 mg/dL (8.5-10.1); CARBON DIOXIDE 26.3 mmol/L (21-32); CHLORIDE 111 mmol/L (98-107); COR CA(FOR HYPOALB) 8.9 mg/dL (8.5-10.1); CREATININE 1.42 mg/dL (0.55-1.02); SODIUM 144 mmol/L (136-145); TOTAL PROTEIN 5.2 g/dL (6.4-8.2); eGFR NON BLACK RACES 38 (>60)
[2021-09-24] MEDS: SYNTHROID 100 mcg TAB PO SCH (09:24)
[2021-09-24] MEDS: TOPROL XL PO SCH ×2 (09:24→21:59)
[2021-09-24] MEDS: MILNACIPRAN 25 MG PO SCH ×2 (09:24→21:57)
[2021-09-24] MEDS: SINGULAIR TAB 10 MG PO SCH (09:24)
[2021-09-24] MEDS: NexIUM PO SCH (09:24)
[2021-09-24] MEDS: PRED FORTE 1 % OP SCH ×4 (09:24→22:02)
[2021-09-24] MEDS: VITAMIN D3 125 mcg (5,000 UNITS) PO SCH (09:25)
[2021-09-24] MEDS ORDERED: MOTRIN TAB 800 MG PO ONE (10:05)
[2021-09-24] MEDS: ULTRAM PO PRN ×3 (10:11→21:59)
[2021-09-24] MEDS: ADVIL TAB 200 MG PO PRN ×2 (10:11→22:01)
[2021-09-24] MEDS: PEPCID TAB 20 MG PO SCH (21:58)
[2021-09-25 06:34] LABS: BASOPHILS # (AUTO) 0.1 X10^3/uL (0.0-0.1); BASOPHILS % (AUTO) 0.8 % (0.2-1.0); EOSINOPHILS # (AUTO) 0.1 x10^3/uL (0.0-0.2); EOSINOPHILS % (AUTO) 1.6 % (0.9-2.9); LYMPHOCYTES # (AUTO) 2.1 X10^3/uL (1.3-2.9); MEAN CORPUSCULAR HEMOGLOBIN 25.2 pg (27.0-34.0); MEAN CORPUSCULAR VOLUME 76.3 fL (80.0-100.0); MEAN PLATELET VOLUME 7.8 fL (7.4-11.0); MONOCYTES # (AUTO) 0.7 x10^3/uL (0.3-0.8); MONOCYTES % (AUTO) 8.8 % (0.0-13.0); NEUTROPHILS # (AUTO) 4.7 x10^3/uL (2.2-4.8); NEUTROPHILS % (AUTO) 61.8 % (42.0-75.0); PLATELET COUNT 192 X10^3/uL (150.0-450.0); RED BLOOD COUNT 2.62 X10^6/uL (3.5-5.4); RED CELL DISTRIBUTION WIDTH 16.2 % (11.6-16.5); WHITE BLOOD COUNT 7.6 X10^3/uL (3.6-10.0)
[2021-09-25] MEDS: NS 1,000 ML IV 1,000 ML IV SCH (06:44)
[2021-09-25 06:47] LABS: HEMOGLOBIN 6.6 g/dL (12.0-16.0)
[2021-09-25 06:50] LABS: ALANINE AMINOTRANSFERASE 11 Units/L (12-78); ALBUMIN 2.2 g/dL (3.4-5.0); ALKALINE PHOSPHATASE 63 Units/L (46-116); ASPARTATE AMINO TRANSFERASE 29 Units/L (15-37); BLOOD UREA NITROGEN 17 mg/dL (7-18); CALCIUM 7.6 mg/dL (8.5-10.1); CARBON DIOXIDE 25.7 mmol/L (21-32); CHLORIDE 112 mmol/L (98-107); SODIUM 144 mmol/L (136-145); TOTAL PROTEIN 5.2 g/dL (6.4-8.2); eGFR NON BLACK RACES 51 (>60)
[2021-09-25] MEDS ORDERED: TYLENOL 325 MG TAB PO ONE (09:24)
[2021-09-25] MEDS ORDERED: LASIX IVP ONE (09:27)
[2021-09-25] MEDS: NexIUM PO SCH (10:00)
[2021-09-25] MEDS: TOPROL XL PO SCH ×2 (10:00→20:29)
[2021-09-25] MEDS: VITAMIN D3 125 mcg (5,000 UNITS) PO SCH (10:00)
[2021-09-25] MEDS: MILNACIPRAN 25 MG PO SCH ×2 (10:00→20:29)
[2021-09-25] MEDS: SINGULAIR TAB 10 MG PO SCH (10:00)
[2021-09-25] MEDS: PRED FORTE 1 % OP SCH ×4 (10:00→20:32)
[2021-09-25] MEDS: SYNTHROID 100 mcg TAB PO SCH (10:39)
[2021-09-25] MEDS: INVANZ INJ 1 GM VIAL 0.5 GM in NS 50 ML IV 50 ML IV SCH ×2 (10:39→20:25)
[2021-09-25] MEDS ORDERED: NS 100 ML IV 100 ML ONE ×3 (10:51→21:48)
[2021-09-25] MEDS: ULTRAM PO PRN (13:29)
[2021-09-25] MEDS: ADVIL TAB 200 MG PO PRN (13:29)
[2021-09-25] MEDS: BENADRYL INJ 50 MG VIAL IV ONE ×2 (15:07→15:10)
[2021-09-25] MEDS: PEPCID TAB 20 MG PO SCH (20:29)
[2021-09-25 23:47] LABS: HEMATOCRIT 26.5 % (36.0-47.0); HEMOGLOBIN 8.9 g/dL (12.0-16.0)
[2021-09-26 06:13] LABS: BASOPHILS % (AUTO) 0.6 % (0.2-1.0); EOSINOPHILS # (AUTO) 0.2 x10^3/uL (0.0-0.2); EOSINOPHILS % (AUTO) 3.2 % (0.9-2.9); HEMATOCRIT 25.4 % (36.0-47.0); HEMOGLOBIN 8.6 g/dL (12.0-16.0); LYMPHOCYTES # (AUTO) 1.8 X10^3/uL (1.3-2.9); LYMPHOCYTES % (AUTO) 26.2 % (21.0-51.0); MEAN CORPUSCULAR HEMOGLOBIN 25.9 pg (27.0-34.0); MEAN CORPUSCULAR HGB CONC 33.7 g/dL (33.0-35.0); MEAN CORPUSCULAR VOLUME 76.8 fL (80.0-100.0); MEAN PLATELET VOLUME 7.7 fL (7.4-11.0); MONOCYTES # (AUTO) 0.6 x10^3/uL (0.3-0.8); MONOCYTES % (AUTO) 9.1 % (0.0-13.0); NEUTROPHILS # (AUTO) 4.1 x10^3/uL (2.2-4.8); NEUTROPHILS % (AUTO) 60.9 % (42.0-75.0); PLATELET COUNT 210 X10^3/uL (150.0-450.0); RED BLOOD COUNT 3.31 X10^6/uL (3.5-5.4); WHITE BLOOD COUNT 6.8 X10^3/uL (3.6-10.0)
[2021-09-26 06:16] LABS: ALANINE AMINOTRANSFERASE 10 Units/L (12-78); ALBUMIN 2.4 g/dL (3.4-5.0); ALKALINE PHOSPHATASE 68 Units/L (46-116); ASPARTATE AMINO TRANSFERASE 31 Units/L (15-37); BLOOD UREA NITROGEN 16 mg/dL (7-18); CALCIUM 8.1 mg/dL (8.5-10.1); CHLORIDE 108 mmol/L (98-107); COR CA(FOR HYPOALB) 9.4 mg/dL (8.5-10.1); CREATININE 1.18 mg/dL (0.55-1.02); SODIUM 144 mmol/L (136-145); TOTAL PROTEIN 5.6 g/dL (6.4-8.2); eGFR NON BLACK RACES 47 (>60)
[2021-09-26] MEDS: INVANZ INJ 1 GM VIAL 1 GM in NS 50 ML IV 50 ML IV SCH (09:19)
[2021-09-26] MEDS: NexIUM PO SCH (09:20)
[2021-09-26] MEDS: MILNACIPRAN 25 MG PO SCH ×2 (09:20→20:49)
[2021-09-26] MEDS: PRED FORTE 1 % OP SCH ×4 (09:20→20:50)
[2021-09-26] MEDS: SINGULAIR TAB 10 MG PO SCH (09:21)
[2021-09-26] MEDS: VITAMIN D3 125 mcg (5,000 UNITS) PO SCH (09:21)
[2021-09-26] MEDS: SYNTHROID 100 mcg TAB PO SCH (09:21)
[2021-09-26] MEDS: TOPROL XL PO SCH ×2 (09:21→20:49)
[2021-09-26] MEDS: ULTRAM PO PRN ×2 (09:28→20:57)
[2021-09-26] MEDS: ADVIL TAB 200 MG PO PRN ×2 (09:29→20:56)
[2021-09-26] MEDS ORDERED: MILK OF MAGNESIA PO PRN (09:31)
[2021-09-26] MEDS ORDERED: MYLICON TAB 80 MG CHEW PO PRN (09:32)
--- NOTE | 2021-09-26 09:37 | PCM.PROG ---
Progress Note - Progress Note for Day of Date of Exam: 09/24/21 - Subjective Subjective: WAS ADMITTED FOR TREATMENT OF DEHYDRATION, SYNCOPE, AND INTRACTABLE PAIN FOLLOWING SYNCOPAL EPISODE AT HOME. SHE HAS A RIGHT SIDED CLAVICLE FRACTURE. TODAY, SHE IS ALERT AND ORIENTED, LYING IN BED ON MORNING ROUNDS. SHE CONTINUES WITH GENERALIZED PAIN AND WEAKNESS THIS MORNING. ON EXAMINATION, HEART IS REGULAR IN RATE AND RHYTHM. BILATERAL LUNGS NOTED WITH DIMINISHED LUNG SOUNDS THROUGHOUT. ABDOMEN IS ROUND, SOFT, AND NON-TENDER WITH NORMAL BOWEL SOUNDS NOTED IN ALL QUADRANTS. RIGHT ARM IS IN A SLING. LARGE BRUISE NOTED TO RIGHT HIP. OTHER SCATTERED BRUISING ALSO NOTED. HER VITALS THIS MORNING ARE: 98.6-78-20-96%-155/67. LABS WERE OBTAINED. ABNORMAL LAB VALUES INCLUDE THE FOLLOWING: RBC 2.86, HGB 7.2, HCT 21.8, CHLORIDE 111, BUN 21, CREATININE 1.42, GLUCOSE 102, CALCIUM 7.6, TOTAL PROTEIN 5.2, ALBUMIN 2.4. SHE IS CURRENTLY RECEIVING NORMAL SALINE AT 125ML/HR, DEMEROL 25MG IV Q6H PRN PAIN, ZOFRAN 4MG IV Q6H PRN NAUSEA. HER HOME MEDICATIONS WERE RESUMED. WE WILL MONITOR HER HGB AND TRANSFUSE IF IT FALLS BELOW 7.0. OTHERWISE, WE WILL CONTINE WITH CURRENT PLAN OF CARE. WE WILL FOLLOW UP WITH AM LABS AND CONTINUE TO MONITOR. TIME SPENT ON CLINICAL ASSESSMENT, REVIEWING LABS AND IMAGING, DECISION MAKING, AND DOCUMENTATION GREATER THAN 45 MINUTES. - Past Medical Family Social History Past Med/Fam/Surg Hx: No changes since H&P Allergies: Allergies diphenhydramine [From Benadryl] Allergy (Verified 10/02/19 12:26) lidocaine Allergy (Verified 10/02/19 12:26) oxycodone [From Percocet] Allergy (Verified 10/02/19 12:26) previous chart listed acetaminiphen from the percocet also Penicillins Allergy (Verified 10/02/19 12:26) Sulfa (Sulfonamide Antibiotics) Allergy (Verified 10/02/19 12:26) tetanus immune globulin Allergy (Verified 10/02/19 12:26) adhesive tape Adverse Reaction (Severe, Verified 09/23/21 01:26) - Review of Systems ROS: No change since H&P - Vital Signs and I&O's Vital Signs: Temperature 98.3 F Pulse Rate [Apical] 70 Pulse Rate 68 Respiratory Rate 16 Blood Pressure [Left Arm] 169/73 Blood Pressure [Right Arm] 135/62 Blood Pressure 101/47 O2 Sat by Pulse Oximetry 100 Intake and Output: Intake & Output 09/23/21 09/24/21 09/25/21 09/26/21 11:59 11:59 11:59 11:59 Intake Total 1565 / 1565 4234 / 4234 3650 / 3650 1832 / 1832 Output Total 450 / 450 2575 / 2575 2650 / 2650 Balance 1565 / 1565 3784 / 3784 1075 / 1075 -818 / -818 - Physical Exam Oriented: Normal Eyes: Normal Ear: Normal Nose: Normal Throat: Normal Respiratory: Generalized, Diminished Cardiovascular: Normal : Normal Auscultation: Bowel Sounds: Normal Tenderness: Normal Skin: Decreased Turgur Musculoskeletal: Right, Shoulder, Clavicle, Arm, Hip (RIGHT HIP HEMATOMA ), Tender Psychiatric: Normal Mood Description: Calm Affect: Normal Speech Pattern: Clear, Appropriate - Laboratory and Diagnostics Result Diagrams: 09/26/21 05:36 09/26/21 05:36 Labs: 09/23/21 11:50 Urine,Catheterized Urine Culture - Final Escherichia Coli Laboratory WBC 6.8 X10^3/uL (3.6-10.0) 09/26/21 05:36 RBC 3.31 X10^6/uL (3.5-5.4) L 09/26/21 05:36 Hgb 8.6 g/dL (12.0-16.0) L 09/26/21 05:36 Hct 25.4 % (36.0-47.0) L 09/26/21 05:36 MCV 76.8 fL (80.0-100.0) L 09/26/21 05:36 MCH 25.9 pg (27.0-34.0) L 09/26/21 05:36 MCHC 33.7 g/dL (33.0-35.0) 09/26/21 05:36 RDW 17.0 % (11.6-16.5) H 09/26/21 05:36 Plt Count 210 X10^3/uL (150.0-450.0) 09/26/21 05:36 MPV 7.7 fL (7.4-11.0) 09/26/21 05:36 Neut % (Auto) 60.9 % (42.0-75.0) 09/26/21 05:36 Lymph % (Auto) 26.2 % (21.0-51.0) 09/26/21 05:36 [place] % (Auto) 9.1 % (0.0-13.0) 09/26/21 05:36 Eos % (Auto) 3.2 % (0.9-2.9) H 09/26/21 05:36 Baso % (Auto) 0.6 % (0.2-1.0) 09/26/21 05:36 Neut # (Auto) 4.1 x10^3/uL (2.2-4.8) 09/26/21 05:36 Lymph # (Auto) 1.8 X10^3/uL (1.3-2.9) 09/26/21 05:36 [place] # (Auto) 0.6 x10^3/uL (0.3-0.8) 09/26/21 05:36 Eos # (Auto) 0.2 x10^3/uL (0.0-0.2) 09/26/21 05:36 Baso # (Auto) 0.0 X10^3/uL (0.0-0.1) 09/26/21 05:36 Absolute Nucleated RBC 0.1 /100WBC 09/26/21 05:36 Sodium 144 mmol/L (136-145) 09/26/21 05:36 Corrected Sodium TNP 09/26/21 05:36 Potassium 3.5 mmol/L (3.5-5.1) 09/26/21 05:36 Chloride 108 mmol/L (98-107) H 09/26/21 05:36 Carbon Dioxide 28.0 mmol/L (21-32) 09/26/21 05:36 BUN 16 mg/dL (7-18) 09/26/21 05:36 Creatinine 1.18 mg/dL (0.55-1.02) H 09/26/21 05:36 Est GFR (MDRD) Af Amer 57 (>60) L 09/26/21 05:36 Est GFR (MDRD) Non-Af 47 (>60) L 09/26/21 05:36 Glucose 101 mg/dL (65-99) H 09/26/21 05:36 Calcium 8.1 mg/dL (8.5-10.1) L 09/26/21 05:36 Corrected Calcium 9.4 mg/dL (8.5-10.1) 09/26/21 05:36 Total Bilirubin 1.10 mg/dL (0.2-1.0) H 09/26/21 05:36 AST 31 Units/L (15-37) 09/26/21 05:36 ALT 10 Units/L (12-78) L 09/26/21 05:36 Alkaline Phosphatase 68 Units/L (46-116) 09/26/21 05:36 Creatine Kinase 79 Units/L (26-192) 09/23/21 10:40 CK-MB (CK-2) 1.5 ng/mL (0-4.0) 09/23/21 10:40 CK/CKMB % Calc 1.9 % (<4) 09/23/21 10:40 Troponin I < 0.02 ng/mL (0-1.5) 09/23/21 10:40 Total Protein 5.6 g/dL (6.4-8.2) L 09/26/21 05:36 Albumin 2.4 g/dL (3.4-5.0) L 09/26/21 05:36 Globulin 3.2 g/dL (2.5-4.5) 09/26/21 05:36 Albumin/Globulin Ratio 0.8 Ratio (1.1-2.1) L 09/26/21 05:36 Specimen Type Catherized urine 09/23/21 11:50 Urine Color Yellow (YELLOW) 09/23/21 11:50 Urine Appearance Slightly hazy (CLEAR) 09/23/21 11:50 Urine pH 5.0 (5.0 - 8.0) 09/23/21 11:50 Ur Specific [place] 1.020 (1.000-1.030) 09/23/21 11:50 Urine Protein 1+ (NEGATIVE) 09/23/21 11:50 Urine Glucose (UA) Negative (NEGATIVE) 09/23/21 11:50 Urine Ketones Negative (NEGATIVE) 09/23/21 11:50 Urine Occult Blood 2+ (NEGATIVE) 09/23/21 11:50 Urine Nitrite Negative (NEGATIVE) 09/23/21 11:50 Urine Bilirubin Negative (NEGATIVE) 09/23/21 11:50 Urine Urobilinogen Normal (NORMAL) 09/23/21 11:50 Ur Leukocyte Esterase Negative (NEGATIVE) 09/23/21 11:50 Urine RBC 3-5 /HPF (0-3) A 09/23/21 11:50 Urine WBC 3-5 /HPF (0-5) 09/23/21 11:50 Ur Squamous Epith Cells Few /HPF (NEGATIVE) 09/23/21 11:50 Urine Bacteria 2+ /HPF (NEGATIVE) 09/23/21 11:50 Hyaline Casts Moderate /LPF (NEGATIVE) 09/23/21 11:50 Urine Mucus Few /HPF (NEGATIVE) 09/23/21 11:50 Ur Culture Indicated? Yes/culture set up 09/23/21 11:50 SARS-CoV-2 (PCR) Negative (NEGATIVE) 09/22/21 23:57 Influenza Type A (PCR) Negative (NEGATIVE) 09/22/21 23:57 Influenza Type B (PCR) Negative (NEGATIVE) 09/22/21 23:57 RSV (PCR) Negative (NEGATIVE) 09/22/21 23:57 Blood Type O NEGATIVE 09/25/21 09:48 Antibody Screen Negative 09/25/21 09:48 Crossmatch See Detail 09/25/21 09:48 - Plan (1) Dehydration Status: Acute Plan: NORMAL SALINE AT 125ML/HR, DEMEROL 25MG IV Q6H PRN PAIN, ZOFRAN 4MG IV Q6H PRN NAUSEA. (2) Syncope Status: Acute Qualifiers: Syncope type: unspecified Qualified Code(s): R55 - Syncope and collapse (3) Anemia Status: Acute Qualifiers: Anemia type: iron deficiency Iron deficiency anemia type: unspecified iron deficiency Qualified Code(s): D50.9 - Iron deficiency anemia, unspecified (4) Clavicle fracture Status: Acute Qualifiers: Encounter type: initial encounter Clavicle location: unspecified part of clavicle Fracture type: closed Fracture alignment: displaced Laterality: right Qualified Code(s): S42.001A - Fracture of unspecified part of right clavicle, initial encounter for closed fracture (5) Sprain of shoulder, right Status: Acute Qualifiers: Encounter type: initial encounter Shoulder sprain type: unspecified sprain Qualified Code(s): S43.401A - Unspecified sprain of right shoulder joint, initial encounter (6) Contusion of scalp Status: Acute Qualifiers: Encounter type: initial encounter Qualified Code(s): S00.03XA - Contusion of scalp, initial encounter (7) Headache Status: Acute Qualifiers: Headache type: unspecified Headache chronicity pattern: acute headache Intractability: not intractable Qualified Code(s): R51.9 - Headache, unspecified (8) Hip pain, right Status: Acute (9) Leg pain, right Status: Acute (10) Skin tear Status: Acute
--- NOTE | 2021-09-26 09:42 | PCM.PROG ---
Progress Note - Progress Note for Day of Date of Exam: 09/25/21 - Subjective Subjective: WAS ADMITTED FOR TREATMENT OF DEHYDRATION, SYNCOPE, AND INTRACTABLE PAIN FOLLOWING SYNCOPAL EPISODE AT HOME. SHE HAS A RIGHT SIDED CLAVICLE FRACTURE. TODAY, SHE IS ALERT AND ORIENTED, LYING IN BED ON MORNING ROUNDS. SHE CONTINUES WITH GENERALIZED PAIN AND WEAKNESS THIS MORNING. ON EXAMINATION, HEART IS REGULAR IN RATE AND RHYTHM. BILATERAL LUNGS NOTED WITH DIMINISHED LUNG SOUNDS THROUGHOUT. ABDOMEN IS ROUND, SOFT, AND NON-TENDER WITH NORMAL BOWEL SOUNDS NOTED IN ALL QUADRANTS. RIGHT ARM IS IN A SLING. LARGE BRUISE NOTED TO RIGHT HIP. OTHER SCATTERED BRUISING ALSO NOTED. HER VITALS THIS MORNING ARE: 98.4-67-18-99%-185/70. LABS WERE OBTAINED. ABNORMAL LAB VALUES INCLUDE THE FOLLOWING: RBC 2.62, HGB 6.6, HCT 20.0, CHLORIDE 112, CREATININE 1.10, CALCIUM 7.6, ALT 11, TOTAL PROTEIN 5.2, ALBUMIN 2.2. URINE CULTURE REVEALED GROWTH OF E.COLI. SHE IS CURRENTLY RECEIVING NORMAL SALINE AT 125ML/HR, DEMEROL 25MG IV Q6H PRN PAIN, ZOFRAN 4MG IV Q6H PRN NAUSEA. HER HOME MEDICATIONS WERE RESUMED. TODAY, WE WILL ADD INVANZ 1G IV DAILY. WE WILL TYPE/SCREEN/CROSSMATCH AND TRANSFUSE ONE UNIT OF PACKED RED BLOOD CELLS FOR NOW. WE WILL HAVE PHYSICAL THERAPY EVALUATE PATIENT. OTHERWISE, WE WILL CONTINE WITH CURRENT PLAN OF CARE. WE WILL FOLLOW UP WITH AM LABS AND CONTINUE TO MONITOR. T LUIS CARLOS SPENT ON CLINICAL ASSESSMENT, REVIEWING LABS AND IMAGING, DECISION MAKING, AND DOCUMENTATION GREATER THAN 45 MINUTES. - Past Medical Family Social History Past Med/Fam/Surg Hx: No changes since H&P Allergies: Allergies diphenhydramine [From Benadryl] Allergy (Verified 10/02/19 12:26) lidocaine Allergy (Verified 10/02/19 12:26) oxycodone [From Percocet] Allergy (Verified 10/02/19 12:26) previous chart listed acetaminiphen from the percocet also Penicillins Allergy (Verified 10/02/19 12:26) Sulfa (Sulfonamide Antibiotics) Allergy (Verified 10/02/19 12:26) tetanus immune globulin Allergy (Verified 10/02/19 12:26) adhesive tape Adverse Reaction (Severe, Verified 09/23/21 01:26) - Review of Systems ROS: No change since H&P - Vital Signs and I&O's Vital Signs: Temperature 98.3 F Pulse Rate [Apical] 70 Pulse Rate 68 Respiratory Rate 16 Blood Pressure [Left Arm] 169/73 Blood Pressure [Right Arm] 135/62 Blood Pressure 101/47 O2 Sat by Pulse Oximetry 100 Intake and Output: Intake & Output 09/23/21 09/24/21 09/25/21 09/26/21 11:59 11:59 11:59 11:59 Intake Total 1565 / 1565 4234 / 4234 3650 / 3650 1832 / 1832 Output Total 450 / 450 2575 / 2575 2650 / 2650 Balance 1565 / 1565 3784 / 3784 1075 / 1075 -818 / -818 - Physical Exam Oriented: Normal Eyes: Normal Ear: Normal Nose: Normal Throat: Normal Respiratory: Generalized, Diminished Cardiovascular: Normal : Normal Auscultation: Bowel Sounds: Normal Tenderness: Normal Skin: Decreased Turgur Musculoskeletal: Right, Shoulder, Clavicle, Arm, Hip (RIGHT HIP HEMATOMA ), Tender Psychiatric: Normal Mood Description: Calm Affect: Normal Speech Pattern: Clear, Appropriate - Laboratory and Diagnostics Result Diagrams: 09/26/21 05:36 09/26/21 05:36 Labs: 09/23/21 11:50 Urine,Catheterized Urine Culture - Final Escherichia Coli Laboratory WBC 6.8 X10^3/uL (3.6-10.0) 09/26/21 05:36 RBC 3.31 X10^6/uL (3.5-5.4) L 09/26/21 05:36 Hgb 8.6 g/dL (12.0-16.0) L 09/26/21 05:36 Hct 25.4 % (36.0-47.0) L 09/26/21 05:36 MCV 76.8 fL (80.0-100.0) L 09/26/21 05:36 MCH 25.9 pg (27.0-34.0) L 09/26/21 05:36 MCHC 33.7 g/dL (33.0-35.0) 09/26/21 05:36 RDW 17.0 % (11.6-16.5) H 09/26/21 05:36 Plt Count 210 X10^3/uL (150.0-450.0) 09/26/21 05:36 MPV 7.7 fL (7.4-11.0) 09/26/21 05:36 Neut % (Auto) 60.9 % (42.0-75.0) 09/26/21 05:36 Lymph % (Auto) 26.2 % (21.0-51.0) 09/26/21 05:36 [place] % (Auto) 9.1 % (0.0-13.0) 09/26/21 05:36 Eos % (Auto) 3.2 % (0.9-2.9) H 09/26/21 05:36 Baso % (Auto) 0.6 % (0.2-1.0) 09/26/21 05:36 Neut # (Auto) 4.1 x10^3/uL (2.2-4.8) 09/26/21 05:36 Lymph # (Auto) 1.8 X10^3/uL (1.3-2.9) 09/26/21 05:36 [place] # (Auto) 0.6 x10^3/uL (0.3-0.8) 09/26/21 05:36 Eos # (Auto) 0.2 x10^3/uL (0.0-0.2) 09/26/21 05:36 Baso # (Auto) 0.0 X10^3/uL (0.0-0.1) 09/26/21 05:36 Absolute Nucleated RBC 0.1 /100WBC 09/26/21 05:36 Sodium 144 mmol/L (136-145) 09/26/21 05:36 Corrected Sodium TNP 09/26/21 05:36 Potassium 3.5 mmol/L (3.5-5.1) 09/26/21 05:36 Chloride 108 mmol/L (98-107) H 09/26/21 05:36 Carbon Dioxide 28.0 mmol/L (21-32) 09/26/21 05:36 BUN 16 mg/dL (7-18) 09/26/21 05:36 Creatinine 1.18 mg/dL (0.55-1.02) H 09/26/21 05:36 Est GFR (MDRD) Af Amer 57 (>60) L 09/26/21 05:36 Est GFR (MDRD) Non-Af 47 (>60) L 09/26/21 05:36 Glucose 101 mg/dL (65-99) H 09/26/21 05:36 Calcium 8.1 mg/dL (8.5-10.1) L 09/26/21 05:36 Corrected Calcium 9.4 mg/dL (8.5-10.1) 09/26/21 05:36 Total Bilirubin 1.10 mg/dL (0.2-1.0) H 09/26/21 05:36 AST 31 Units/L (15-37) 09/26/21 05:36 ALT 10 Units/L (12-78) L 09/26/21 05:36 Alkaline Phosphatase 68 Units/L (46-116) 09/26/21 05:36 Creatine Kinase 79 Units/L (26-192) 09/23/21 10:40 CK-MB (CK-2) 1.5 ng/mL (0-4.0) 09/23/21 10:40 CK/CKMB % Calc 1.9 % (<4) 09/23/21 10:40 Troponin I < 0.02 ng/mL (0-1.5) 09/23/21 10:40 Total Protein 5.6 g/dL (6.4-8.2) L 09/26/21 05:36 Albumin 2.4 g/dL (3.4-5.0) L 09/26/21 05:36 Globulin 3.2 g/dL (2.5-4.5) 09/26/21 05:36 Albumin/Globulin Ratio 0.8 Ratio (1.1-2.1) L 09/26/21 05:36 Specimen Type Catherized urine 09/23/21 11:50 Urine Color Yellow (YELLOW) 09/23/21 11:50 Urine Appearance Slightly hazy (CLEAR) 09/23/21 11:50 Urine pH 5.0 (5.0 - 8.0) 09/23/21 11:50 Ur Specific [place] 1.020 (1.000-1.030) 09/23/21 11:50 Urine Protein 1+ (NEGATIVE) 09/23/21 11:50 Urine Glucose (UA) Negative (NEGATIVE) 09/23/21 11:50 Urine Ketones Negative (NEGATIVE) 09/23/21 11:50 Urine Occult Blood 2+ (NEGATIVE) 09/23/21 11:50 Urine Nitrite Negative (NEGATIVE) 09/23/21 11:50 Urine Bilirubin Negative (NEGATIVE) 09/23/21 11:50 Urine Urobilinogen Normal (NORMAL) 09/23/21 11:50 Ur Leukocyte Esterase Negative (NEGATIVE) 09/23/21 11:50 Urine RBC 3-5 /HPF (0-3) A 09/23/21 11:50 Urine WBC 3-5 /HPF (0-5) 09/23/21 11:50 Ur Squamous Epith Cells Few /HPF (NEGATIVE) 09/23/21 11:50 Urine Bacteria 2+ /HPF (NEGATIVE) 09/23/21 11:50 Hyaline Casts Moderate /LPF (NEGATIVE) 09/23/21 11:50 Urine Mucus Few /HPF (NEGATIVE) 09/23/21 11:50 Ur Culture Indicated? Yes/culture set up 09/23/21 11:50 SARS-CoV-2 (PCR) Negative (NEGATIVE) 09/22/21 23:57 Influenza Type A (PCR) Negative (NEGATIVE) 09/22/21 23:57 Influenza Type B (PCR) Negative (NEGATIVE) 09/22/21 23:57 RSV (PCR) Negative (NEGATIVE) 09/22/21 23:57 Blood Type O NEGATIVE 09/25/21 09:48 Antibody Screen Negative 09/25/21 09:48 Crossmatch See Detail 09/25/21 09:48 - Plan (1) Dehydration Status: Acute Plan: NORMAL SALINE AT 125ML/HR, DEMEROL 25MG IV Q6H PRN PAIN, ZOFRAN 4MG IV Q6H PRN NAUSEA. (2) Syncope Status: Acute Qualifiers: Syncope type: unspecified Qualified Code(s): R55 - Syncope and collapse (3) Anemia Status: Acute Qualifiers: Anemia type: iron deficiency Iron deficiency anemia type: unspecified iron deficiency Qualified Code(s): D50.9 - Iron deficiency anemia, unspecified Plan: TRANSFUSE PRBC (4) E. coli UTI Status: Acute Plan: INVANZ 1G IV DAILY (5) Clavicle fracture Status: Acute Qualifiers: Encounter type: initial encounter Clavicle location: unspecified part of clavicle Fracture type: closed Fracture alignment: displaced Laterality: right Qualified Code(s): S42.001A - Fracture of unspecified part of right clavicle, initial encounter for closed fracture (6) Sprain of shoulder, right Status: Acute Qualifiers: Encounter type: initial encounter Shoulder sprain type: unspecified sprain Qualified Code(s): S43.401A - Unspecified sprain of right shoulder joint, initial encounter (7) Contusion of scalp Status: Acute Qualifiers: Encounter type: initial encounter Qualified Code(s): S00.03XA - Contusion of scalp, initial encounter (8) Headache Status: Acute Qualifiers: Headache type: unspecified Headache chronicity pattern: acute headache Intractability: not intractable Qualified Code(s): R51.9 - Headache, unspecified (9) Hip pain, right Status: Acute (10) Leg pain, right Status: Acute (11) Skin tear Status: Acute
[2021-09-26] MEDS: MIRALAX POWDER (1 DOSE 17 G) PO SCH (10:25)
--- NOTE | 2021-09-26 10:30 | PCM.PROG ---
Progress Note - Progress Note for Day of Date of Exam: 09/26/21 - Subjective Subjective: WAS ADMITTED FOR TREATMENT OF DEHYDRATION, ANEMIA, E.COLI UTI, SYNCOPE, AND INTRACTABLE PAIN FOLLOWING SYNCOPAL EPISODE AT HOME. SHE HAS A RIGHT SIDED CLAVICLE FRACTURE. SHE RECEIVED ONE UNIT OF PRBC YESTERDAY. TODAY, SHE IS ALERT AND ORIENTED, LYING IN BED ON MORNING ROUNDS. SHE CONTINUES WITH GENERALIZED PAIN AND WEAKNESS THIS MORNING. SHE REPORTS BEING UNABLE TO GET OUT OF BED OR PERFORM ADLs WITHOUT MODERATE ASSISTANCE. ON EXAMINATION, HEART IS REGULAR IN RATE AND RHYTHM. BILATERAL LUNGS NOTED WITH DIMINISHED LUNG SOUNDS THROUGHOUT. ABDOMEN IS ROUND, SOFT, AND NON-TENDER WITH NORMAL BOWEL SOUNDS NOTED IN ALL QUADRANTS. RIGHT ARM IS IN A SLING. LARGE BRUISE NOTED TO RIGHT HIP. OTHER SCATTERED BRUISING ALSO NOTED. HER VITALS THIS MORNING ARE: 98.3-70-18-100%-169/73. LABS WERE OBTAINED. ABNORMAL LAB VALUES INCLUDE THE FOLLOWING: RBC 3.31, HGB 86, HCT 25.4, CHLORIDE 108, CREATININE 1.18, GLUCOSE 101, CALCIUM 8.1, TOTAL BILI 1.10, ALT 10, TOTAL PROTEIN 5.6, ALBUMIN 2.4. URINE CULTURE REVEALED GROWTH OF E.COLI. SHE IS CURRENTLY RECEIVING NORMAL SALINE AT 125ML/HR, INVANZ 1G IV DAILY, DEMEROL 25MG IV Q6H PRN PAIN, ZOFRAN 4MG IV Q6H PRN NAUSEA. HER HOME MEDICATIONS WERE RESUMED. WE WILL HAVE PHYSICAL THERAPY CONTINUE TO WORK WITH PATIENT TODAY. OTHERWISE, WE WILL CONTINE WITH CURRENT PLAN OF CARE. WE WILL FOLLOW UP WITH AM LABS AND CONTINUE TO MONITOR. TIME SPENT ON CLINICAL ASSESSMENT, REVIEWING LABS AND IMAGING, DECISION MAKING, AND DOCUMENTATION GREATER THAN 45 MINUTES. - Past Medical Family Social History Past Med/Fam/Surg Hx: No changes since H&P Allergies: Allergies diphenhydramine [From Benadryl] Allergy (Verified 10/02/19 12:26) lidocaine Allergy (Verified 10/02/19 12:26) oxycodone [From Percocet] Allergy (Verified 10/02/19 12:26) previous chart listed acetaminiphen from the percocet also Penicillins Allergy (Verified 10/02/19 12:26) Sulfa (Sulfonamide Antibiotics) Allergy (Verified 12/19/19 12:26) tetanus immune globulin Allergy (Verified 10/02/19 12:26) adhesive tape Adverse Reaction (Severe, Verified 09/23/21 01:26) - Review of Systems ROS: No change since H&P - Vital Signs and I&O's Vital Signs: Temperature 98.3 F Pulse Rate [Apical] 70 Pulse Rate 68 Respiratory Rate 16 Blood Pressure [Left Arm] 169/73 Blood Pressure [Right Arm] 135/62 Blood Pressure 101/47 O2 Sat by Pulse Oximetry 100 Intake and Output: Intake & Output 09/23/21 09/24/21 09/25/21 09/26/21 11:59 11:59 11:59 11:59 Intake Total 1565 / 1565 4234 / 4234 3650 / 3650 1832 / 1832 Output Total 450 / 450 2575 / 2575 2650 / 2650 Balance 1565 / 1565 3784 / 3784 1075 / 1075 -818 / -818 - Physical Exam Oriented: Normal Eyes: Normal Ear: Normal Nose: Normal Throat: Normal Respiratory: Generalized, Diminished Cardiovascular: Normal : Normal Auscultation: Bowel Sounds: Normal Palpation: Normal Tenderness: Normal Skin: Decreased Turgur Musculoskeletal: Right, Shoulder, Clavicle, Arm, Hip (RIGHT HIP HEMATOMA ), Tender Psychiatric: Normal Mood Description: Calm Affect: Normal Speech Pattern: Clear, Appropriate - Laboratory and Diagnostics Result Diagrams: 09/26/21 05:36 09/26/21 05:36 Labs: 09/23/21 11:50 Urine,Catheterized Urine Culture - Final Escherichia Coli Laboratory WBC 6.8 X10^3/uL (3.6-10.0) 09/26/21 05:36 RBC 3.31 X10^6/uL (3.5-5.4) L 09/26/21 05:36 Hgb 8.6 g/dL (12.0-16.0) L 09/26/21 05:36 Hct 25.4 % (36.0-47.0) L 09/26/21 05:36 MCV 76.8 fL (80.0-100.0) L 09/26/21 05:36 MCH 25.9 pg (27.0-34.0) L 09/26/21 05:36 MCHC 33.7 g/dL (33.0-35.0) 09/26/21 05:36 RDW 17.0 % (11.6-16.5) H 09/26/21 05:36 Plt Count 210 X10^3/uL (150.0-450.0) 09/26/21 05:36 MPV 7.7 fL (7.4-11.0) 09/26/21 05:36 Neut % (Auto) 60.9 % (42.0-75.0) 09/26/21 05:36 Lymph % (Auto) 26.2 % (21.0-51.0) 09/26/21 05:36 [place] % (Auto) 9.1 % (0.0-13.0) 09/26/21 05:36 Eos % (Auto) 3.2 % (0.9-2.9) H 09/26/21 05:36 Baso % (Auto) 0.6 % (0.2-1.0) 09/26/21 05:36 Neut # (Auto) 4.1 x10^3/uL (2.2-4.8) 09/26/21 05:36 Lymph # (Auto) 1.8 X10^3/uL (1.3-2.9) 09/26/21 05:36 [place] # (Auto) 0.6 x10^3/uL (0.3-0.8) 09/26/21 05:36 Eos # (Auto) 0.2 x10^3/uL (0.0-0.2) 09/26/21 05:36 Baso # (Auto) 0.0 X10^3/uL (0.0-0.1) 09/26/21 05:36 Absolute Nucleated RBC 0.1 /100WBC 09/26/21 05:36 Sodium 144 mmol/L (136-145) 09/26/21 05:36 Corrected Sodium TNP 09/26/21 05:36 Potassium 3.5 mmol/L (3.5-5.1) 09/26/21 05:36 Chloride 108 mmol/L (98-107) H 09/26/21 05:36 Carbon Dioxide 28.0 mmol/L (21-32) 09/26/21 05:36 BUN 16 mg/dL (7-18) 09/26/21 05:36 Creatinine 1.18 mg/dL (0.55-1.02) H 09/26/21 05:36 Est GFR (MDRD) Af Amer 57 (>60) L 09/26/21 05:36 Est GFR (MDRD) Non-Af 47 (>60) L 09/26/21 05:36 Glucose 101 mg/dL (65-99) H 09/26/21 05:36 Calcium 8.1 mg/dL (8.5-10.1) L 09/26/21 05:36 Corrected Calcium 9.4 mg/dL (8.5-10.1) 09/26/21 05:36 Total Bilirubin 1.10 mg/dL (0.2-1.0) H 09/26/21 05:36 AST 31 Units/L (15-37) 09/26/21 05:36 ALT 10 Units/L (12-78) L 09/26/21 05:36 Alkaline Phosphatase 68 Units/L (46-116) 09/26/21 05:36 Creatine Kinase 79 Units/L (26-192) 09/23/21 10:40 CK-MB (CK-2) 1.5 ng/mL (0-4.0) 09/23/21 10:40 CK/CKMB % Calc 1.9 % (<4) 09/23/21 10:40 Troponin I < 0.02 ng/mL (0-1.5) 09/23/21 10:40 Total Protein 5.6 g/dL (6.4-8.2) L 09/26/21 05:36 Albumin 2.4 g/dL (3.4-5.0) L 09/26/21 05:36 Globulin 3.2 g/dL (2.5-4.5) 09/26/21 05:36 Albumin/Globulin Ratio 0.8 Ratio (1.1-2.1) L 09/26/21 05:36 Specimen Type Catherized urine 09/23/21 11:50 Urine Color Yellow (YELLOW) 09/23/21 11:50 Urine Appearance Slightly hazy (CLEAR) 09/23/21 11:50 Urine pH 5.0 (5.0 - 8.0) 09/23/21 11:50 Ur Specific [place] 1.020 (1.000-1.030) 09/23/21 11:50 Urine Protein 1+ (NEGATIVE) 09/23/21 11:50 Urine Glucose (UA) Negative (NEGATIVE) 09/23/21 11:50 Urine Ketones Negative (NEGATIVE) 09/23/21 11:50 Urine Occult Blood 2+ (NEGATIVE) 09/23/21 11:50 Urine Nitrite Negative (NEGATIVE) 09/23/21 11:50 Urine Bilirubin Negative (NEGATIVE) 09/23/21 11:50 Urine Urobilinogen Normal (NORMAL) 09/23/21 11:50 Ur Leukocyte Esterase Negative (NEGATIVE) 09/23/21 11:50 Urine RBC 3-5 /HPF (0-3) A 09/23/21 11:50 Urine WBC 3-5 /HPF (0-5) 09/23/21 11:50 Ur Squamous Epith Cells Few /HPF (NEGATIVE) 09/23/21 11:50 Urine Bacteria 2+ /HPF (NEGATIVE) 09/23/21 11:50 Hyaline Casts Moderate /LPF (NEGATIVE) 09/23/21 11:50 Urine Mucus Few /HPF (NEGATIVE) 09/23/21 11:50 Ur Culture Indicated? Yes/culture set up 09/23/21 11:50 SARS-CoV-2 (PCR) Negative (NEGATIVE) 09/22/21 23:57 Influenza Type A (PCR) Negative (NEGATIVE) 09/22/21 23:57 Influenza Type B (PCR) Negative (NEGATIVE) 09/22/21 23:57 RSV (PCR) Negative (NEGATIVE) 09/22/21 23:57 Blood Type O NEGATIVE 09/25/21 09:48 Antibody Screen Negative 09/25/21 09:48 Crossmatch See Detail 09/25/21 09:48 - Plan (1) Dehydration Status: Acute Plan: NORMAL SALINE AT 125ML/HR, DEMEROL 25MG IV Q6H PRN PAIN, ZOFRAN 4MG IV Q6H PRN NAUSEA. (2) Syncope Status: Acute Qualifiers: Syncope type: unspecified Qualified Code(s): R55 - Syncope and collapse (3) Anemia Status: Acute Qualifiers: Anemia type: iron deficiency Iron deficiency anemia type: unspecified iron deficiency Qualified Code(s): D50.9 - Iron deficiency anemia, unspecified (4) E. coli UTI Status: Acute Plan: INVANZ 1G IV DAILY (5) Clavicle fracture Status: Acute Qualifiers: Encounter type: initial encounter Clavicle location: unspecified part of clavicle Fracture type: closed Fracture alignment: displaced Laterality: right Qualified Code(s): S42.001A - Fracture of unspecified part of right clavicle, initial encounter for closed fracture (6) Sprain of shoulder, right Status: Acute Qualifiers: Encounter type: initial encounter Shoulder sprain type: unspecified sprain Qualified Code(s): S43.401A - Unspecified sprain of right shoulder joint, initial encounter (7) Contusion of scalp Status: Acute Qualifiers: Encounter type: initial encounter Qualified Code(s): S00.03XA - Contusion of scalp, initial encounter (8) Headache Status: Acute Qualifiers: Headache type: unspecified Headache chronicity pattern: acute headache Intractability: not intractable Qualified Code(s): R51.9 - Headache, unspecified (9) Hip pain, right Status: Acute (10) Leg pain, right Status: Acute (11) Skin tear Status: Acute
[2021-09-26] MEDS: COLACE CAP 100 MG PO SCH ×2 (11:00→20:48)
[2021-09-26] MEDS: PEPCID TAB 20 MG PO SCH (20:48)
[2021-09-27 05:48] LABS: BASOPHILS # (AUTO) 0.1 X10^3/uL (0.0-0.1); BASOPHILS % (AUTO) 0.8 % (0.2-1.0); EOSINOPHILS # (AUTO) 0.2 x10^3/uL (0.0-0.2); EOSINOPHILS % (AUTO) 3.5 % (0.9-2.9); HEMATOCRIT 26.2 % (36.0-47.0); HEMOGLOBIN 8.7 g/dL (12.0-16.0); LYMPHOCYTES # (AUTO) 1.9 X10^3/uL (1.3-2.9); LYMPHOCYTES % (AUTO) 27.5 % (21.0-51.0); MEAN CORPUSCULAR HEMOGLOBIN 25.5 pg (27.0-34.0); MEAN CORPUSCULAR HGB CONC 33.2 g/dL (33.0-35.0); MEAN PLATELET VOLUME 7.6 fL (7.4-11.0); MONOCYTES # (AUTO) 0.7 x10^3/uL (0.3-0.8); NEUTROPHILS # (AUTO) 3.9 x10^3/uL (2.2-4.8); NEUTROPHILS % (AUTO) 58.2 % (42.0-75.0); PLATELET COUNT 235 X10^3/uL (150.0-450.0); WHITE BLOOD COUNT 6.8 X10^3/uL (3.6-10.0)
[2021-09-27 06:18] LABS: ALANINE AMINOTRANSFERASE 9 Units/L (12-78); ALBUMIN 2.4 g/dL (3.4-5.0); ALKALINE PHOSPHATASE 69 Units/L (46-116); ASPARTATE AMINO TRANSFERASE 31 Units/L (15-37); BLOOD UREA NITROGEN 19 mg/dL (7-18); CALCIUM 8.2 mg/dL (8.5-10.1); CARBON DIOXIDE 28.6 mmol/L (21-32); CHLORIDE 107 mmol/L (98-107); COR CA(FOR HYPOALB) 9.5 mg/dL (8.5-10.1); CREATININE 1.06 mg/dL (0.55-1.02); SODIUM 143 mmol/L (136-145); TOTAL PROTEIN 5.6 g/dL (6.4-8.2); eGFR NON BLACK RACES 53 (>60)
[2021-09-27] MEDS: COLACE CAP 100 MG PO SCH ×2 (09:51→20:47)
[2021-09-27] MEDS: SINGULAIR TAB 10 MG PO SCH (09:51)
[2021-09-27] MEDS: NexIUM PO SCH (09:51)
[2021-09-27] MEDS: VITAMIN D3 125 mcg (5,000 UNITS) PO SCH (09:52)
[2021-09-27] MEDS: MIRALAX POWDER (1 DOSE 17 G) PO SCH (09:52)
[2021-09-27] MEDS: TOPROL XL PO SCH ×2 (09:52→20:47)
[2021-09-27] MEDS: PRED FORTE 1 % OP SCH ×4 (09:52→20:50)
[2021-09-27] MEDS: SYNTHROID 100 mcg TAB PO SCH (09:52)
[2021-09-27] MEDS: INVANZ INJ 1 GM VIAL 1 GM in NS 50 ML IV 50 ML IV SCH (09:52)
[2021-09-27] MEDS: MILNACIPRAN 25 MG PO SCH ×2 (10:13→20:47)
[2021-09-27] MEDS: ADVIL TAB 200 MG PO PRN ×3 (10:13→23:05)
[2021-09-27] MEDS: ULTRAM PO PRN ×3 (10:13→23:04)
--- NOTE | 2021-09-27 10:37 | PCM.PROG ---
Progress Note - Progress Note for Day of Date of Exam: 09/27/21 - Subjective Subjective: WAS ADMITTED FOR TREATMENT OF DEHYDRATION, ANEMIA, E.COLI UTI, SYNCOPE, AND INTRACTABLE PAIN FOLLOWING SYNCOPAL EPISODE AT HOME. SHE HAS A RIGHT SIDED CLAVICLE FRACTURE. SHE RECEIVED ONE UNIT OF PRBC SUNDAY. TODAY, SHE IS ALERT AND ORIENTED, LYING IN BED ON MORNING ROUNDS. SHE CONTINUES WITH GENERALIZED PAIN AND WEAKNESS THIS MORNING. SHE REPORTS BEING UNABLE TO GET OUT OF BED OR PERFORM ADLs WITHOUT MODERATE ASSISTANCE. PHYSICAL THERAPY DID ASSIST PATIENT OUT OF BED YESTERDAY, BUT IT REQUIRED MAXIUMUM ASSITANCE. ON EXAMINATION, HEART IS REGULAR IN RATE AND RHYTHM. BILATERAL LUNGS NOTED WITH DIMINISHED LUNG SOUNDS THROUGHOUT. ABDOMEN IS ROUND, SOFT, AND NON-TENDER WITH NORMAL BOWEL SOUNDS NOTED IN ALL QUADRANTS. RIGHT ARM IS IN A SLING. THERE IS A LARGE HEMATOMA NOTED TO RIGHT UPPER ARM. LARGE BRUISE NOTED TO RIGHT HIP. OTHER SCATTERED BRUISING ALSO NOTED. HER VITALS THIS MORNING ARE: 98.2-66-20-97%-184/74. LABS WERE OBTAINED. ABNORMAL LAB VALUES INCLUDE THE FOLLOWING: RBC 3.40, HGB 8.7, HCT 26.2, BUN 19, CREATININE 1.06, GLUCOSE 105, CALCIUM 8.2, ALT 9, TOTAL PROTEIN 5.6, ALBUMIN 2.4. URINE CULTURE REVEALED GROWTH OF E.COLI. SHE IS CURRENTLY RECEIVING NORMAL SALINE AT 125ML/HR, INVANZ 1G IV DAILY, DEMEROL 25MG IV Q6H PRN PAIN, ZOFRAN 4MG IV Q6H PRN NAUSEA. HER HOME MEDICATIONS WERE RESUMED. WE WILL HAVE PHYSICAL THERAPY CONTINUE TO WORK WITH PATIENT TODAY. WE HAVE DISCUSSED OPTIONS FOR DISCHARGE. PATIENT AND FAMILY WILL DISCUSS OPTIONS TODAY. OTHERWISE, WE WILL CONTINE WITH CURRENT PLAN OF CARE. WE WILL FOLLOW UP WITH AM LABS AND CONTINUE TO MONITOR. TIME SPENT ON CLINICAL ASSESSMENT, REVIEWING LABS AND IMAGING, DECISION MAKING, AND DOCUMENTATION GREATER THAN 45 MINUTES. - Past Medical Family Social History Past Med/Fam/Surg Hx: No changes since H&P Allergies: Allergies diphenhydramine [From Benadryl] Allergy (Verified 10/02/19 12:26) lidocaine Allergy (Verified 10/02/19 12:26) oxycodone [From Percocet] Allergy (Verified 10/02/19 12:26) previous chart listed acetaminiphen from the percocet also Penicillins Allergy (Verified 10/02/19 12:26) Sulfa (Sulfonamide Antibiotics) Allergy (Verified 10/02/19 12:26) tetanus immune globulin Allergy (Verified 10/02/19 12:26) adhesive tape Adverse Reaction (Severe, Verified 09/23/21 01:26) - Review of Systems ROS: No change since H&P - Vital Signs and I&O's Vital Signs: Temperature 98.2 F Pulse Rate [Apical] 66 Pulse Rate 68 Respiratory Rate 18 Blood Pressure [Left Arm] 184/74 Blood Pressure [Right Arm] 135/62 Blood Pressure 101/47 O2 Sat by Pulse Oximetry 97 Intake and Output: Intake & Output 09/24/21 09/25/21 09/26/21 09/27/21 11:59 11:59 11:59 11:59 Intake Total 4234 / 4234 3650 / 3650 1832 / 1832 2096 / 2096 Output Total 450 / 450 2575 / 2575 2650 / 2650 3025 / 3025 Balance 3784 / 3784 1075 / 1075 -818 / -818 -929 / -929 - Physical Exam Oriented: Normal Eyes: Normal Ear: Normal Nose: Normal Throat: Normal Respiratory: Generalized, Diminished Cardiovascular: Normal : Normal Auscultation: Bowel Sounds: Normal Tenderness: Normal Skin: Decreased Turgur Musculoskeletal: Right, Shoulder, Clavicle, Arm, Hip (RIGHT HIP HEMATOMA ), Tender Psychiatric: Normal Mood Description: Calm Affect: Normal Speech Pattern: Clear, Appropriate - Laboratory and Diagnostics Result Diagrams: 09/27/21 05:28 09/27/21 05:28 Labs: 09/23/21 11:50 Urine,Catheterized Urine Culture - Final Escherichia Coli Laboratory WBC 6.8 X10^3/uL (3.6-10.0) 09/27/21 05:28 RBC 3.40 X10^6/uL (3.5-5.4) L 09/27/21 05:28 Hgb 8.7 g/dL (12.0-16.0) L 09/27/21 05:28 Hct 26.2 % (36.0-47.0) L 09/27/21 05:28 MCV 77.0 fL (80.0-100.0) L 09/27/21 05:28 MCH 25.5 pg (27.0-34.0) L 09/27/21 05:28 MCHC 33.2 g/dL (33.0-35.0) 09/27/21 05:28 RDW 17.0 % (11.6-16.5) H 09/27/21 05:28 Plt Count 235 X10^3/uL (150.0-450.0) 09/27/21 05:28 MPV 7.6 fL (7.4-11.0) 09/27/21 05:28 Neut % (Auto) 58.2 % (42.0-75.0) 09/27/21 05:28 Lymph % (Auto) 27.5 % (21.0-51.0) 09/27/21 05:28 [place] % (Auto) 10.0 % (0.0-13.0) 09/27/21 05:28 Eos % (Auto) 3.5 % (0.9-2.9) H 09/27/21 05:28 Baso % (Auto) 0.8 % (0.2-1.0) 09/27/21 05:28 Neut # (Auto) 3.9 x10^3/uL (2.2-4.8) 09/27/21 05:28 Lymph # (Auto) 1.9 X10^3/uL (1.3-2.9) 09/27/21 05:28 [place] # (Auto) 0.7 x10^3/uL (0.3-0.8) 09/27/21 05:28 Eos # (Auto) 0.2 x10^3/uL (0.0-0.2) 09/27/21 05:28 Baso # (Auto) 0.1 X10^3/uL (0.0-0.1) 09/27/21 05:28 Absolute Nucleated RBC 0.1 /100WBC 09/27/21 05:28 Sodium 143 mmol/L (136-145) 09/27/21 05:28 Corrected Sodium TNP 09/27/21 05:28 Potassium 3.6 mmol/L (3.5-5.1) 09/27/21 05:28 Chloride 107 mmol/L (98-107) 09/27/21 05:28 Carbon Dioxide 28.6 mmol/L (21-32) 09/27/21 05:28 BUN 19 mg/dL (7-18) H 09/27/21 05:28 Creatinine 1.06 mg/dL (0.55-1.02) H 09/27/21 05:28 Est GFR (MDRD) Af Amer > 60 (>60) 09/27/21 05:28 Est GFR (MDRD) Non-Af 53 (>60) L 09/27/21 05:28 Glucose 105 mg/dL (65-99) H 09/27/21 05:28 Calcium 8.2 mg/dL (8.5-10.1) L 09/27/21 05:28 Corrected Calcium 9.5 mg/dL (8.5-10.1) 09/27/21 05:28 Total Bilirubin 1.00 mg/dL (0.2-1.0) 09/27/21 05:28 AST 31 Units/L (15-37) 09/27/21 05:28 ALT 9 Units/L (12-78) L 09/27/21 05:28 Alkaline Phosphatase 69 Units/L (46-116) 09/27/21 05:28 Creatine Kinase 79 Units/L (26-192) 09/23/21 10:40 CK-MB (CK-2) 1.5 ng/mL (0-4.0) 09/23/21 10:40 CK/CKMB % Calc 1.9 % (<4) 09/23/21 10:40 Troponin I < 0.02 ng/mL (0-1.5) 09/23/21 10:40 Total Protein 5.6 g/dL (6.4-8.2) L 09/27/21 05:28 Albumin 2.4 g/dL (3.4-5.0) L 09/27/21 05:28 Globulin 3.2 g/dL (2.5-4.5) 09/27/21 05:28 Albumin/Globulin Ratio 0.8 Ratio (1.1-2.1) L 09/27/21 05:28 Specimen Type Catherized urine 09/23/21 11:50 Urine Color Yellow (YELLOW) 09/23/21 11:50 Urine Appearance Slightly hazy (CLEAR) 09/23/21 11:50 Urine pH 5.0 (5.0 - 8.0) 09/23/21 11:50 Ur Specific [place] 1.020 (1.000-1.030) 09/23/21 11:50 Urine Protein 1+ (NEGATIVE) 09/23/21 11:50 Urine Glucose (UA) Negative (NEGATIVE) 09/23/21 11:50 Urine Ketones Negative (NEGATIVE) 09/23/21 11:50 Urine Occult Blood 2+ (NEGATIVE) 09/23/21 11:50 Urine Nitrite Negative (NEGATIVE) 09/23/21 11:50 Urine Bilirubin Negative (NEGATIVE) 09/23/21 11:50 Urine Urobilinogen Normal (NORMAL) 09/23/21 11:50 Ur Leukocyte Esterase Negative (NEGATIVE) 09/23/21 11:50 Urine RBC 3-5 /HPF (0-3) A 09/23/21 11:50 Urine WBC 3-5 /HPF (0-5) 09/23/21 11:50 Ur Squamous Epith Cells Few /HPF (NEGATIVE) 09/23/21 11:50 Urine Bacteria 2+ /HPF (NEGATIVE) 09/23/21 11:50 Hyaline Casts Moderate /LPF (NEGATIVE) 09/23/21 11:50 Urine Mucus Few /HPF (NEGATIVE) 09/23/21 11:50 Ur Culture Indicated? Yes/culture set up 09/23/21 11:50 SARS-CoV-2 (PCR) Negative (NEGATIVE) 09/22/21 23:57 Influenza Type A (PCR) Negative (NEGATIVE) 09/22/21 23:57 Influenza Type B (PCR) Negative (NEGATIVE) 09/22/21 23:57 RSV (PCR) Negative (NEGATIVE) 09/22/21 23:57 Blood Type O NEGATIVE 09/25/21 09:48 Antibody Screen Negative 09/25/21 09:48 Crossmatch See Detail 09/25/21 09:48 - Plan (1) Dehydration Status: Acute Plan: NORMAL SALINE AT 125ML/HR, DEMEROL 25MG IV Q6H PRN PAIN, ZOFRAN 4MG IV Q6H PRN NAUSEA. (2) Syncope Status: Acute Qualifiers: Syncope type: unspecified Qualified Code(s): R55 - Syncope and collapse (3) Anemia Status: Acute Qualifiers: Anemia type: iron deficiency Iron deficiency anemia type: unspecified iron deficiency Qualified Code(s): D50.9 - Iron deficiency anemia, unspecified Plan: MONITOR H&H (4) E. coli UTI Status: Acute Plan: INVANZ 1G IV DAILY (5) Clavicle fracture Status: Acute Qualifiers: Encounter type: initial encounter Clavicle location: unspecified part of clavicle Fracture type: closed Fracture alignment: displaced Laterality: right Qualified Code(s): S42.001A - Fracture of unspecified part of right clavicle, initial encounter for closed fracture (6) Sprain of shoulder, right Status: Acute Qualifiers: Encounter type: initial encounter Shoulder sprain type: unspecified sprain Qualified Code(s): S43.401A - Unspecified sprain of right shoulder joint, initial encounter (7) Contusion of scalp Status: Acute Qualifiers: Encounter type: initial encounter Qualified Code(s): S00.03XA - Contusion of scalp, initial encounter (8) Headache Status: Acute Qualifiers: Headache type: unspecified Headache chronicity pattern: acute headache Intractability: not intractable Qualified Code(s): R51.9 - Headache, unspecified (9) Hip pain, right Status: Acute (10) Leg pain, right Status: Acute (11) Skin tear Status: Acute
[2021-09-27] MEDS: PEPCID TAB 20 MG PO SCH (20:47)
[2021-09-28] MEDS: ULTRAM PO PRN (05:53)
[2021-09-28] MEDS: ADVIL TAB 200 MG PO PRN (05:54)
[2021-09-28 06:10] LABS: BASOPHILS % (AUTO) 0.7 % (0.2-1.0); EOSINOPHILS # (AUTO) 0.2 x10^3/uL (0.0-0.2); EOSINOPHILS % (AUTO) 3.1 % (0.9-2.9); HEMATOCRIT 25.1 % (36.0-47.0); HEMOGLOBIN 8.6 g/dL (12.0-16.0); LYMPHOCYTES # (AUTO) 1.8 X10^3/uL (1.3-2.9); LYMPHOCYTES % (AUTO) 26.3 % (21.0-51.0); MEAN CORPUSCULAR HEMOGLOBIN 26.5 pg (27.0-34.0); MEAN CORPUSCULAR HGB CONC 34.2 g/dL (33.0-35.0); MEAN CORPUSCULAR VOLUME 77.4 fL (80.0-100.0); MEAN PLATELET VOLUME 7.4 fL (7.4-11.0); MONOCYTES # (AUTO) 0.6 x10^3/uL (0.3-0.8); MONOCYTES % (AUTO) 9.5 % (0.0-13.0); NEUTROPHILS % (AUTO) 60.4 % (42.0-75.0); PLATELET COUNT 224 X10^3/uL (150.0-450.0); RED BLOOD COUNT 3.24 X10^6/uL (3.5-5.4); WHITE BLOOD COUNT 6.7 X10^3/uL (3.6-10.0)
[2021-09-28 06:17] LABS: ALANINE AMINOTRANSFERASE 9 Units/L (12-78); ALBUMIN 2.4 g/dL (3.4-5.0); ALKALINE PHOSPHATASE 78 Units/L (46-116); ASPARTATE AMINO TRANSFERASE 30 Units/L (15-37); BLOOD UREA NITROGEN 20 mg/dL (7-18); CALCIUM 8.3 mg/dL (8.5-10.1); CHLORIDE 106 mmol/L (98-107); COR CA(FOR HYPOALB) 9.6 mg/dL (8.5-10.1); SODIUM 142 mmol/L (136-145); TOTAL PROTEIN 5.7 g/dL (6.4-8.2); eGFR NON BLACK RACES 46 (>60)
[2021-09-28] MEDS: COLACE CAP 100 MG PO SCH (08:37)
[2021-09-28] MEDS: INVANZ INJ 1 GM VIAL 1 GM in NS 50 ML IV 50 ML IV SCH (08:37)
[2021-09-28] MEDS: MILNACIPRAN 25 MG PO SCH (08:38)
[2021-09-28] MEDS: MIRALAX POWDER (1 DOSE 17 G) PO SCH (08:39)
[2021-09-28] MEDS: TOPROL XL PO SCH (08:39)
[2021-09-28] MEDS: NexIUM PO SCH (08:39)
[2021-09-28] MEDS: SINGULAIR TAB 10 MG PO SCH (08:39)
[2021-09-28] MEDS: PRED FORTE 1 % OP SCH (08:39)
[2021-09-28] MEDS: SYNTHROID 100 mcg TAB PO SCH (08:39)
[2021-09-28] MEDS: VITAMIN D3 125 mcg (5,000 UNITS) PO SCH (08:40)
[2021-09-28 08:43] VITALS: BP 176/75
== END 2021-09-28 11:00 ==
LOC: ER 15:34 → U 15:34 → MED/SURG 09-23 08:38
PROVIDERS: ADMIT Obstetrics & Gynecology Obstetrics; ATTEND Internal Medicine
DX: S41.111A Laceration without foreign body of right upper arm, initial encounter; S70.01XA Contusion of right hip, initial encounter; R55 Syncope and collapse; S42.031A Displaced fracture of lateral end of right clavicle, initial encounter for closed fracture; W18.39XA Other fall on same level, initial encounter; M51.36 Other intervertebral disc degeneration, lumbar region; B96.29 Other Escherichia coli [E. coli] as the cause of diseases classified elsewhere; Z20.822 Contact with and (suspected) exposure to COVID-19; D50.8 Other iron deficiency anemias; I10 Essential (primary) hypertension; R53.1 Weakness; M25.551 Pain in right hip; E86.0 Dehydration; I25.10 Atherosclerotic heart disease of native coronary artery without angina pectoris; S43.401A Unspecified sprain of right shoulder joint, initial encounter; M48.061 Spinal stenosis, lumbar region without neurogenic claudication; S00.03XA Contusion of scalp, initial encounter; N39.0 Urinary tract infection, site not specified; Y92.009 Unspecified place in unspecified non-institutional (private) residence as the place of occurrence of the external cause; R26.89 Other abnormalities of gait and mobility; R94.31 Abnormal electrocardiogram [ECG] [EKG]

== ENCOUNTER 2022-10-23 13:23 | Observation (INO) ==
--- NOTE | 2022-10-23 14:38 | DR.URIAD ---
HPI Time Seen Time Seen by Provider: 10/23/22 14:38 PCP Primary Care Physician: Umer BAEZA HPI Comment HPI Comment: PATIENT IS 82YR OLD FEMALE IN ER WITH COUGH, CONGESTION AND DECREASE APPETITE TIMES 3 DAYSS WORSE TODAY. PATIENT HAS HTN, CAD, HYP OTHYROIDISM, PUD AND ANEMIA. SHE IS SOB AND WEAK. Complaint Chief Complaint:: PT TESTED POSITIVE FOR COVID, TODAY PT HAS BEEN NOT FEELING WELL FOR SEVERAL DAYS PT IS WEAK, COUGHING, AND < ORAL INTAKE,BR COVID-19 Coronavirus risk:travel/contact w/high risk person: No Has patient experienced Coronavirus symptoms: No Source History Provided: Patient Mode of Arrival Mode of Arrival: Wheelchair Timing Onset of Chief Complaint: 10/20/22 Quality Shortness of Breath: none PMH PMH Past Medical History: Yes Past Medical History: Anemia, Coronary Artery Disease, Hypertension, Hyperthyroi dism and PUD Past Surgical History: Yes Surgical History: Cholecystectomy, Hysterectomy, Ortho Surgery and Thyroidectomy Family History History of Family Medical Conditions: Yes Family Medical History: Cancer, Coronary Artery Disease and Hypertension Social History Does patient currently use any type of tobacco product: No Have you used tobacco products in the last 12 months: No Type of Tobacco Use: None Does any household member use tobacco: No Alcohol Use: None Do you use any recreational Drugs:: No Lives With: Family Lives Where: Home Travel Risk Coronavirus risk:travel/contact w/high risk person: No Has patient experienced Coronavirus symptoms: No Infectious screening In the last 2 months have you had wt loss of >10#?: NO Have you had fever, night sweats or hemotysis?: No Have you traveled outside the country in the last 6 months?: No Isolation: Respiratory ROS Review of Systems Constitutional: Weakness and Fatigue; negative Fever Eyes: No Symptoms Reported ENTM: No Symptoms Reported PE Vital Signs Vitals: Temperature 99.0 F Pulse Rate 83 Respiratory Rate 20 Blood Pressure [Left Arm] 176/75 Blood Pressure 135/82 O2 Sat by Pulse Oximetry 95 ROR Labs Reviewed Result Diagrams: 10/23/22 14:50 10/23/22 14:50 Laboratory: WBC 5.0 X10^3/uL (3.6-10.0) 10/23/22 14:50 RBC 4.54 X10^6/uL (3.5-5.4) 10/23/22 14:50 Hgb 10.8 g/dL (12.0-16.0) L 10/23/22 14:50 Hct 32.7 % (36.0-47.0) L 10/23/22 14:50 MCV 71.9 fL (80.0-100.0) L 10/23/22 14:50 MCH 23.7 pg (27.0-34.0) L 10/23/22 14:50 MCHC 33.0 g/dL (33.0-35.0) 10/23/22 14:50 RDW 16.3 % (11.6-16.5) 10/23/22 14:50 Plt Count 205 X10^3/uL (150.0-450.0) 10/23/22 14:50 Plt Count Comment Adequate (ADEQUATE) 10/23/22 14:50 MPV 7.3 fL (7.4-11.0) L 10/23/22 14:50 Neut % (Auto) 62.9 % (42.0-75.0) 10/23/22 14:50 Lymph % (Auto) 21.0 % (21.0-51.0) 10/23/22 14:50 [place] % (Auto) 15.5 % (0.0-13.0) H 10/23/22 14:50 Eos % (Auto) 0.1 % (0.9-2.9) L 10/23/22 14:50 Baso % (Auto) 0.5 % (0.2-1.0) 10/23/22 14:50 Neut # (Auto) 3.1 x10^3/uL (2.2-4.8) 10/23/22 14:50 Lymph # (Auto) 1.0 X10^3/uL (1.3-2.9) L 10/23/22 14:50 [place] # (Auto) 0.8 x10^3/uL (0.3-0.8) 10/23/22 14:50 Eos # (Auto) 0.0 x10^3/uL (0.0-0.2) 10/23/22 14:50 Baso # (Auto) 0.0 X10^3/uL (0.0-0.1) 10/23/22 14:50 Absolute Nucleated RBC 0.0 /100WBC 10/23/22 14:50 Plt Morphology Comment Normal (NORMAL) 10/23/22 14:50 RBC Morphology Abnormal (NORMAL) A 10/23/22 14:50 Microcytosis Slight A 10/23/22 14:50 Stomatocytes Present 10/23/22 14:50 D-Dimer 1.24 ug/ml (0.0-0.57) H 10/23/22 14:50 Sodium 136 mmol/L (136-145) 10/23/22 14:50 Corrected Sodium TNP 10/23/22 14:50 Potassium 3.4 mmol/L (3.5-5.1) L 10/23/22 14:50 Chloride 100 mmol/L (98-107) 10/23/22 14:50 Carbon Dioxide 27.4 mmol/L (21-32) 10/23/22 14:50 BUN 21 mg/dL (7-18) H 10/23/22 14:50 Creatinine 1.39 mg/dL (0.55-1.02) H 10/23/22 14:50 Est GFR (MDRD) Af Amer 47 (>60) L 10/23/22 14:50 Est GFR (MDRD) Non-Af 39 (>60) L 10/23/22 14:50 Glucose 98 mg/dL (65-99) 10/23/22 14:50 Calcium 8.4 mg/dL (8.5-10.1) L 10/23/22 14:50 Corrected Calcium 9.0 mg/dL (8.5-10.1) 10/23/22 14:50 Total Bilirubin 0.60 mg/dL (0.2-1.0) 10/23/22 14:50 AST 67 Units/L (15-37) H 10/23/22 14:50 ALT 16 Units/L (12-78) 10/23/22 14:50 Alkaline Phosphatase 87 Units/L (46-116) 10/23/22 14:50 B-Natriuretic Peptide 188 pg/mL (0-79) H 10/23/22 14:50 Total Protein 7.0 g/dL (6.4-8.2) 10/23/22 14:50 Albumin 3.2 g/dL (3.4-5.0) L 10/23/22 14:50 Globulin 3.8 g/dL (2.5-4.5) 10/23/22 14:50 Albumin/Globulin Ratio 0.8 Ratio (1.1-2.1) L 10/23/22 14:50 Specimen Type Catherized urine 10/23/22 17:23 Urine Color Yellow (YELLOW) 10/23/22 17: Urine Appearance Hazy (CLEAR) 10/23/22 17: Urine pH 5.0 (5.0 - 8.0) 10/23/22 17: Ur Specific [place] 1.020 (1.000-1.030) 10/23/22 17: Urine Protein 2+ (NEGATIVE) 10/23/22 17: Urine Glucose (UA) Negative (NEGATIVE) 10/23/22 17: Urine Ketones 1+ (NEGATIVE) 10/23/22 17: Urine Blood 5+ (NEGATIVE) 10/23/22 17: Urine Nitrite Negative (NEGATIVE) 10/23/22 17: Urine Bilirubin Negative (NEGATIVE) 10/23/22 17: Urine Urobilinogen 1+ (NORMAL) 10/23/22 17:23 Ur Leukocyte Esterase 1+ (NEGATIVE) 10/23/22 17: Urine RBC 5-10 /HPF (0-3) A 10/23/22 17: Urine WBC 3-5 /HPF (0-5) 10/23/22 17:23 Ur Squamous Epith Cells Few /HPF (NEGATIVE) 10/23/22 17:23 Amorphous Sediment 1+ /HPF (NEGATIVE) 10/23/22 17: Urine Bacteria 1+ /HPF (NEGATIVE) 10/23/22 17: Granular Casts Rare /LPF (NEGATIVE) 10/23/22 17:23 Ur Culture Indicated? Yes/culture set up 10/23/22 17:23 SARS-CoV-2 (PCR) Positive (NEGATIVE) A 10/23/22 18:56 Influenza Type A (PCR) Negative (NEGATIVE) 10/23/22 18:56 Influenza Type B (PCR) Negative (NEGATIVE) 10/23/22 18:56 RSV (PCR) Negative (NEGATIVE) 10/23/22 18:56 Opioid Opioid Risk Tool Age ([place] box if 16-45): No History of Preadolescent Sexual Abuse: No Total: 0 Total Score Risk Category: Low Risk Copyright: Xavier SANTOS predicting aberrant behaviors Discharge Plan Discharge Plan Patient Disposition: 01 HOME, SELF-CARE Condition: Stable Orders to Discharge Patient Discharge Orders: Transfer (Routine); Ordered 10/23/22 Ordered By: JOHN BLANCA
[2022-10-23 15:09] LABS: BASOPHILS % (AUTO) 0.5 % (0.2-1.0); EOSINOPHILS % (AUTO) 0.1 % (0.9-2.9); HEMATOCRIT 32.7 % (36.0-47.0); HEMOGLOBIN 10.8 g/dL (12.0-16.0); MEAN CORPUSCULAR HEMOGLOBIN 23.7 pg (27.0-34.0); MEAN CORPUSCULAR VOLUME 71.9 fL (80.0-100.0); MEAN PLATELET VOLUME 7.3 fL (7.4-11.0); MONOCYTES # (AUTO) 0.8 x10^3/uL (0.3-0.8); MONOCYTES % (AUTO) 15.5 % (0.0-13.0); NEUTROPHILS # (AUTO) 3.1 x10^3/uL (2.2-4.8); NEUTROPHILS % (AUTO) 62.9 % (42.0-75.0); RED BLOOD COUNT 4.54 X10^6/uL (3.5-5.4); RED CELL DISTRIBUTION WIDTH 16.3 % (11.6-16.5)
[2022-10-23 15:13] LABS: ALANINE AMINOTRANSFERASE 16 Units/L (12-78); ALBUMIN 3.2 g/dL (3.4-5.0); ALKALINE PHOSPHATASE 87 Units/L (46-116); ASPARTATE AMINO TRANSFERASE 67 Units/L (15-37); BLOOD UREA NITROGEN 21 mg/dL (7-18); CALCIUM 8.4 mg/dL (8.5-10.1); CARBON DIOXIDE 27.4 mmol/L (21-32); CHLORIDE 100 mmol/L (98-107); CREATININE 1.39 mg/dL (0.55-1.02); SODIUM 136 mmol/L (136-145); eGFR NON BLACK RACES 39 (>60)
[2022-10-23 15:27] LABS: PLATELET MORPHOLOGY COMMENT NORMAL (NORMAL)
[2022-10-23 15:29] LABS: MICROCYTOSIS SLIGHT; STOMATOCYTES PRESENT
--- NOTE | 2022-10-23 16:45 | CT ---
HISTORYELEVATED D-DIMERSTUDYCTA CHESTCOMPARISONTECHNIQUEMultiple axial images of the chest were obtained from the thoracic inlet to the upper abdomen after the administration of IV contrast. 3D reconstructions utilizing axial MIPS imaging was performed and reviewed. Dose reduction techniques including Automated Exposure Control (AEC) and adjustment of mA and kV were utilized.FINDINGSThere is mild dilation of the left ventricle and left atrium. The main pulmonary artery is normal in caliber. There is excellent enhancement in the pulmonary arteries and there is no pulmonary embolus. The aorta is of normal caliber. There is no pathologic adenopathy. There is some mild bronchial wall thickening. There is some mild peripheral and dependent opacity suggestive atelectasis and mild scarring. There is no pleural effusion or pneumothorax. There is debris in the esophagus suggesting reflux. There is a small hiatal hernia. The upper abdominal structures are grossly unremarkable. There is no worrisome bone marrow lesion.IMPRESSION1. Negative for pulmonary embolus. 2. Bronchial wall thickening. 3. Mild dependent basilar atelectasis and scarring. 4. Gastroesophageal reflux. 5. Small hiatal hernia.Electronically signed by: Tray Downs (Oct 23, 2022 16:44:35)
[2022-10-23] MEDS ORDERED: K-DUR TAB 20 MEQ PO ONE (16:46)
[2022-10-23] MEDS ORDERED: LOPRESSOR TAB 25 MG ONE (16:47)
[2022-10-23] MEDS ORDERED: LOPRESSOR TAB 25 MG PO ONE (16:51)
[2022-10-23] MEDS: MICRO K EXTEN CAP 10 MEQ PO PRN (16:52)
[2022-10-23] MEDS ORDERED: NS 1,000 ML IV 1,000 ML ONE (17:05)
[2022-10-23] MEDS: NS 1,000 ML IV 1,000 ML IV SCH ×2 (17:25→23:18)
[2022-10-23 17:31] LABS: BILIRUBIN,URINE NEGATIVE (NEGATIVE); BLOOD/HEMOGLOBIN,URINE 5+ (NEGATIVE); GLUCOSE, URINE NEGATIVE (NEGATIVE); KETONES,URINE 1+ (NEGATIVE); LEUKOCYTE ESTERASE ,URINE 1+ (NEGATIVE); NITRITES,URINE NEGATIVE (NEGATIVE); PROTEIN,URINE 2+ (NEGATIVE); UROBILINOGEN,URINE 1+ (NORMAL)
[2022-10-23 17:32] LABS: APPEARANCE,URINE HAZY (CLEAR); COLOR,URINE YELLOW (YELLOW)
[2022-10-23 17:45] LABS: BACTERIA,URINE 1+ /HPF (NEGATIVE); SQUAMOUS EPITHELIAL CELL,UR FEW /HPF (NEGATIVE)
[2022-10-23 17:46] LABS: GRANULAR CASTS,URINE RARE /LPF (NEGATIVE)
[2022-10-23] MEDS ORDERED: CATAPRES TAB 0.2 MG ONE (18:28)
[2022-10-23] MEDS ORDERED: CATAPRES TAB 0.2 MG PO ONE (18:33)
[2022-10-23] MEDS ORDERED: ROCEPHIN VIAL 1 GRAM 1 G in NS 100 ML IV 100 ML IV ONE (19:45)
[2022-10-23] MEDS ORDERED: LEVAQUIN PREMIX IV 500 MG 500 MG/100 ML BAG IV ONE ×2 (19:46→19:50)
[2022-10-23] MEDS ORDERED: REMDESIVIR 200 MG in NS 100 ML IV 140 ML IV ONE (19:55)
[2022-10-23 22:22] VITALS: BMI 26.3
--- NOTE | 2022-10-23 22:24 | RAD ---
HISTORYCOVID, SOB Relevant Clinical InformationSTUDYCHEST, 1 VIEWCOMPARISONFINDINGSThe trachea is midline. The cardiac silhouette is unremarkable. The lungs are clear without focal infiltrate or effusion. The bony thorax is unremarkable.IMPRESSIONNo acute cardiopulmonary findings .Electronically signed by: Tray Downs (Oct 23, 2022 22:22:37)
[2022-10-23] MEDS: SOLU-Medrol 125 MG VIAL IVP SCH (23:12)
[2022-10-24] MEDS: SOLU-Medrol 125 MG VIAL IVP SCH ×3 (00:01→15:26)
[2022-10-24] MEDS: NS 1,000 ML IV 1,000 ML IV SCH (08:00)
[2022-10-24] MEDS: REMDESIVIR 100 MG in NS 100 ML IV 120 ML IV SCH (08:53)
[2022-10-24] MEDS ORDERED: LEVAQUIN PREMIX IV 500 MG 500 MG/100 ML BAG IV SCH (09:00)
[2022-10-24] MEDS: XARELTO PO SCH (09:57)
[2022-10-24] MEDS: TOPROL XL PO SCH ×2 (09:57→20:39)
[2022-10-24] MEDS: LASIX PO SCH (09:57)
[2022-10-24] MEDS: NexIUM PO SCH (09:58)
[2022-10-24] MEDS: SYNTHROID 100 mcg TAB PO SCH (09:58)
[2022-10-24] MEDS: TESSALON PERLES PO SCH ×3 (09:58→21:42)
[2022-10-24] MEDS: ROBITUSSIN DM PO SCH ×2 (09:59→20:38)
[2022-10-24] MEDS: MICRO K EXTEN CAP 10 MEQ PO PRN (15:23)
[2022-10-24] MEDS ORDERED: LEVAQUIN PREMIX IV 250 MG 250 MG/50 ML BAG IV SCH (20:00)
[2022-10-25] MEDS: NS 1,000 ML IV 1,000 ML IV SCH ×2 (00:45)
[2022-10-25] MEDS: TESSALON PERLES PO SCH (05:13)
[2022-10-25 06:25] LABS: BASOPHILS % (AUTO) 0 % (0.2-1.0); HEMATOCRIT 29.7 % (36.0-47.0); HEMOGLOBIN 9.9 g/dL (12.0-16.0); LYMPHOCYTES # (AUTO) 0.8 X10^3/uL (1.3-2.9); LYMPHOCYTES % (AUTO) 12.5 % (21.0-51.0); MEAN CORPUSCULAR HEMOGLOBIN 23.9 pg (27.0-34.0); MEAN CORPUSCULAR HGB CONC 33.3 g/dL (33.0-35.0); MEAN CORPUSCULAR VOLUME 71.8 fL (80.0-100.0); MEAN PLATELET VOLUME 7.6 fL (7.4-11.0); MONOCYTES # (AUTO) 0.4 x10^3/uL (0.3-0.8); MONOCYTES % (AUTO) 5.7 % (0.0-13.0); NEUTROPHILS # (AUTO) 5.4 x10^3/uL (2.2-4.8); NEUTROPHILS % (AUTO) 81.8 % (42.0-75.0); RED BLOOD COUNT 4.14 X10^6/uL (3.5-5.4); RED CELL DISTRIBUTION WIDTH 16.4 % (11.6-16.5); WHITE BLOOD COUNT 6.6 X10^3/uL (3.6-10.0)
[2022-10-25 07:07] LABS: HYPOCHROMASIA 1+; MICROCYTOSIS SLIGHT; PLATELET MORPHOLOGY COMMENT NORMAL (NORMAL)
--- NOTE | 2022-10-25 07:28 | RAD ---
HISTORYCOVID, shortness of breathSTUDYChest AP [id number]/2023 chest x-ray and CTA chestFINDINGSThe heart is enlarged. No congestive heart failure is noted. The lung burrell are clear. No pleural effusions are identified. Bony thorax is unremarkable.IMPRESSIONMild cardiomegaly without congestive heart failureNo infiltratesElectronically signed by: ANIA BRAND (Oct 25, 2022 07:27:31)
[2022-10-25 07:33] LABS: CARBON DIOXIDE 26.6 mmol/L (21-32); CREATININE 1.24 mg/dL (0.55-1.02)
--- NOTE | 2022-10-25 07:51 | DR.H&P ---
H&P History & Physical for Day of: H&P Date: 10/24/22 Chief Complaint Chief Complaint: Cough, Shortness of breath Weakness, Loss of appetite Allergies Allergies Allergy/AdvReac Type Severity Reaction Status Date / Time cefdinir Allergy Verified 10/23/22 19:51 cetirizine [From Zyrtec] Allergy Verified 10/23/22 19:51 diphenhydramine Allergy Verified 10/23/22 13:26 [From Benadryl] flecainide Allergy Verified 10/23/22 19:51 iron Allergy Verified 10/23/22 19:51 lidocaine Allergy Verified 10/23/22 13:26 metoprolol Allergy Verified 10/23/22 19:51 morphine Allergy Verified 10/23/22 19:51 oxycodone [From Percocet] Allergy Verified 10/23/22 13:26 Penicillins Allergy Verified 10/23/22 13:26 Sulfa (Sulfonamide Allergy Verified 10/23/22 13:26 Antibiotics) tetanus immune globulin Allergy Verified 10/23/22 13:26 adhesive tape AdvReac Severe Verified 10/23/22 13:26 History of Present Illness History of Present Illness: Pt is a 82 year old female past medical history of hypertension, hyperthyroidism, CAD, presenting with cough, congestion, shortness of breath, loss of appetite, and weakness for the past 2-3 days. She went to see her pcp and was noted to be dehydrated and weak. In the ED, she did test posi tive for COVID-19. Labs/imaging: Wbc 5.0, Hgb 10.8, Plt 205, Na 136, K 3.4, Creatinine 1.39, Glucose 98, UA:positive with Urine culture set up. D-dimer 1.24. CXR revealed: no acute cardiopulmonary findings, CTA was obtained due to elevated D-dimer that revealed:1.Negative for pulmonary embolus. 2.Bronchial wall thickening. 3.Mild dependent basilar atelectasis and scarring. 4.Gastroesophageal reflux. 5.Small hiatal hernia. Pt was admitted and started on IV Levaquin and IV Remdesivir for infection. Continue to hydrate with IVF NS@75ml/h. Receiving IV Solumedrol 80mg x 2 doses and will continue tomorrow at 40mg daily. Restart home medications. Continue to closely monitor and follow up labs/imaging. Past Medical History Past Medical History: Anemia, Coronary Artery Disease, Hypertension, Hyperthyroidism and PUD Past Surgical History Surgical History: [employer] Surgery Family History Family Medical History: Cancer Social History Does patient currently use any type of tobacco product: No Have you used tobacco products in the last 12 months: No Type of Tobacco Use: None Does any household member use tobacco: No Alcohol Use: None Drug Use: None Medications Home Medications: cefdinir Allergy (Verified 10/23/22 19:51) cetirizine [From Zyrtec] Allergy (Verified 10/23/22 19:51) diphenhydramine [From Benadryl] Allergy (Verified 10/23/22 13:26) flecainide Allergy (Verified 10/23/22 19:51) iron Allergy (Verified 10/23/22 19:51) lidocaine Allergy (Verified 10/23/22 13:26) metoprolol Allergy (Verified 10/23/22 19:51) morphine Allergy (Verified 10/23/22 19:51) oxycodone [From Percocet] Allergy (Verified 10/23/22 13:26) Penicillins Allergy (Verified 10/23/22 13:26) Sulfa (Sulfonamide Antibiotics) Allergy (Verified 10/23/22 13:26) tetanus immune globulin Allergy (Verified 10/23/22 13:26) adhesive tape Adverse Reaction (Severe, Verified 10/23/22 13:26) CONTINUE taking the following medications biotin 2,500 mcg capsule 5,000 mcg PO DAILY 10/23/22 [History] cetirizine 10 mg tablet (Zyrtec) 10 mg PO DAILY 10/23/22 [History] cholecalciferol (vitamin D3) 125 mcg (5,000 unit) tablet (Vitamin D3) 125 mcg PO DAILY 10/23/22 [History] esomeprazole magnesium 40 mg capsule,delayed release 1 cap PO QDAY 10/23/22 [History] furosemide 20 mg tablet (Lasix) 20 mg PO DAILY 10/23/22 [History] gabapentin 100 mg capsule 1 cap PO TID 10/23/22 [History] levothyroxine 100 mcg tablet 1 tab PO QAM 10/23/22 [History] meclizine 25 mg tablet 25 mg PO TID PRN 10/23/22 [History] metoprolol succinate 25 mg tablet,extended release 24 hr 1 tab PO BID 10/23/22 [History] milnacipran 25 mg tablet (Savella) 1 tab PO BID 10/23/22 [History] rivaroxaban 20 mg tablet (Xarelto) 1 tab PO QDAY 10/23/22 [History] tramadol 50 mg tablet 50 mg PO PRN PRN 10/23/22 [History] Labs Result Diagrams: 10/25/22 05:26 10/25/22 05:26 Labs: 10/23/22 17:23 Urine,Catheterized Urine Culture - Preliminary Laboratory WBC 6.6 X10^3/uL (3.6-10.0) 10/25/22 05:26 RBC 4.14 X10^6/uL (3.5-5.4) 10/25/22 05:26 Hgb 9.9 g/dL (12.0-16.0) L 10/25/22 05:26 Hct 29.7 % (36.0-47.0) L 10/25/22 05:26 MCV 71.8 fL (80.0-100.0) L 10/25/22 05:26 MCH 23.9 pg (27.0-34.0) L 10/25/22 05:26 MCHC 33.3 g/dL (33.0-35.0) 10/25/22 05:26 RDW 16.4 % (11.6-16.5) 10/25/22 05:26 Plt Count 197 X10^3/uL (150.0-450.0) 10/25/22 05:26 Plt Count Comment Adequate (ADEQUATE) 10/25/22 05:26 MPV 7.6 fL (7.4-11.0) 10/25/22 05:26 Neut % (Auto) 81.8 % (42.0-75.0) H 10/25/22 05:26 Lymph % (Auto) 12.5 % (21.0-51.0) L 10/25/22 05:26 [place] % (Auto) 5.7 % (0.0-13.0) 10/25/22 05:26 Eos % (Auto) 0.0 % (0.9-2.9) L 10/25/22 05:26 Baso % (Auto) 0 % (0.2-1.0) L 10/25/22 05:26 Neut # (Auto) 5.4 x10^3/uL (2.2-4.8) H 10/25/22 05:26 Lymph # (Auto) 0.8 X10^3/uL (1.3-2.9) L 10/25/22 05:26 [place] # (Auto) 0.4 x10^3/uL (0.3-0.8) 10/25/22 05:26 Eos # (Auto) 0.0 x10^3/uL (0.0-0.2) 10/25/22 05:26 Baso # (Auto) 0.0 X10^3/uL (0.0-0.1) 10/25/22 05:26 Absolute Nucleated RBC 0.1 /100WBC 10/25/22 05:26 Plt Morphology Comment Normal (NORMAL) 10/25/22 05:26 RBC Morphology Abnormal (NORMAL) A 10/25/22 05:26 Hypochromasia 1+ A 10/25/22 05:26 Microcytosis Slight A 10/25/22 05:26 Stomatocytes Present 10/23/22 14:50 D-Dimer 1.24 ug/ml (0.0-0.57) H 10/23/22 14:50 Sodium 142 mmol/L (136-145) 10/25/22 05:26 Corrected Sodium 143 mmol/L (136-145) 10/25/22 05:26 Potassium 3.4 mmol/L (3.5-5.1) L 10/25/22 05:26 Chloride 107 mmol/L (98-107) 10/25/22 05:26 Carbon Dioxide 26.6 mmol/L (21-32) 10/25/22 05:26 BUN 21 mg/dL (7-18) H 10/25/22 05:26 Creatinine 1.24 mg/dL (0.55-1.02) H 10/25/22 05:26 Est GFR (MDRD) Af Amer 53 (>60) L 10/25/22 05:26 Est GFR (MDRD) Non-Af 44 (>60) L 10/25/22 05:26 Glucose 148 mg/dL (65-99) H 10/25/22 05:26 Calcium 8.0 mg/dL (8.5-10.1) L 10/25/22 05:26 Corrected Calcium 9.0 mg/dL (8.5-10.1) 10/23/22 14:50 Total Bilirubin 0.60 mg/dL (0.2-1.0) 10/23/22 14:50 AST 67 Units/L (15-37) H 10/23/22 14:50 ALT 16 Units/L (12-78) 10/23/22 14:50 Alkaline Phosphatase 87 Units/L (46-116) 10/23/22 14:50 B-Natriuretic Peptide 343 pg/mL (0-79) H 10/25/22 05:26 Total Protein 7.0 g/dL (6.4-8.2) 10/23/22 14:50 Albumin 3.2 g/dL (3.4-5.0) L 10/23/22 14:50 Globulin 3.8 g/dL (2.5-4.5) 10/23/22 14:50 Albumin/Globulin Ratio 0.8 Ratio (1.1-2.1) L 10/23/22 14:50 Specimen Type Catherized urine 10/23/22 17: Urine Color Yellow (YELLOW) 10/23/22: Urine Appearance Hazy (CLEAR) 10/23/22 17: Urine pH 5.0 (5.0 - 8.0) 10/23/22 17: Ur Specific [place] 1.020 (1.000-1.030) 10/23/22 17: Urine Protein 2+ (NEGATIVE) 10/23/22 17: Urine Glucose (UA) Negative (NEGATIVE) 10/23/22 17: Urine Ketones 1+ (NEGATIVE) 10/23/22: Urine Blood 5+ (NEGATIVE) 10/23/22: Urine Nitrite Negative (NEGATIVE) 10/23/22: Urine Bilirubin Negative (NEGATIVE) 10/23/22 Urine Urobilinogen 1+ (NORMAL) 10/23/22 17 Ur Leukocyte Esterase 1+ (NEGATIVE) 10/23/22 17: Urine RBC 5-10 /HPF (0-3) A 10/23/22 17: Urine WBC 3-5 /HPF (0-5) 10/23/22 17:23 Ur Squamous Epith Cells Few /HPF (NEGATIVE) 10/23/22 17:23 Amorphous Sediment 1+ /HPF (NEGATIVE) 10/23/22 17:23 Urine Bacteria 1+ /HPF (NEGATIVE) 10/23/22 17:23 Granular Casts Rare /LPF (NEGATIVE) 10/23/22 17:23 Ur Culture Indicated? Yes/culture set up 10/23/22 17:23 SARS-CoV-2 (PCR) Positive (NEGATIVE) A 10/23/22 18:56 Influenza Type A (PCR) Negative (NEGATIVE) 10/23/22 18:56 Influenza Type B (PCR) Negative (NEGATIVE) 10/23/22 18:56 RSV (PCR) Negative (NEGATIVE) 10/23/22 18:56 Review of Systems Constitutional: Weakness Eyes: No Symptoms Reported ENT: No Symptoms Reported Respiratory: Cough and Shortness of Breath Cardiovascular: No Symptoms Reported Gastrointestinal: No Symptoms Reported Genitourinary: No Symptoms Reported Musculoskeletal: No Symptoms Reported Skin: No Symptoms Reported Neurological: No Symptoms Reported Physical Exam Vital Signs: Temperature 98 F Pulse Rate [Right Brachial] 81 Pulse Rate 67 Respiratory Rate 20 Blood Pressure [Left Arm] 145/67 Blood Pressure 135/82 O2 Sat by Pulse Oximetry 96 Oriented: Normal Eyes: Normal Ear: Normal Nose: Normal Throat: Normal Respiratory: Clear Throughout Cardiovascular: Normal : Normal Auscultation: Bowel Sounds: Normal Palpation: Normal Tenderness: Normal Skin: Decreased Turgur Musculoskeletal: Normal Psychiatric: Normal Mood Description: Calm and Appropriate Affect: Normal Speech Pattern: Clear and Appropriate Assessment/Plan (1) COVID-19: Status: Acute (2) Weakness: Status: Acute (3) Dehydration: Status: Acute (4) Hypertension: Qualifiers: Hypertension type: essential hypertension Qualified Code(s): I10 - Essential (primary) hypertension Status: Chronic (5) Hypothyroidism: Status: Chronic Review H&P Reviewed: Yes Patient was examined?: Yes
[2022-10-25 08:20] LABS: ALBUMIN 2.8 g/dL (3.4-5.0); TOTAL PROTEIN 6.2 g/dL (6.4-8.2)
[2022-10-25] MEDS: ROBITUSSIN DM PO SCH (08:30)
[2022-10-25] MEDS: REMDESIVIR 100 MG in NS 100 ML IV 120 ML IV SCH (08:30)
[2022-10-25] MEDS: NexIUM PO SCH (08:31)
[2022-10-25] MEDS: SYNTHROID 100 mcg TAB PO SCH (08:31)
[2022-10-25] MEDS: LASIX PO SCH (08:31)
[2022-10-25] MEDS: XARELTO PO SCH (08:32)
[2022-10-25] MEDS: TOPROL XL PO SCH (08:34)
[2022-10-25 08:41] VITALS: BP 151/83
[2022-10-25] MEDS ORDERED: SOLU-Medrol 40 MG VIAL IVP SCH (09:00)
== END 2022-10-25 11:40 | disposition home health service (06) ==
LOC: ER 13:23 → MED/SURG 13:23
PROVIDERS: ADMIT Internal Medicine; ATTEND Internal Medicine
DX: I25.10 Atherosclerotic heart disease of native coronary artery without angina pectoris; E03.8 Other specified hypothyroidism; R06.02 Shortness of breath; R53.1 Weakness; B96.29 Other Escherichia coli [E. coli] as the cause of diseases classified elsewhere; K21.9 Gastro-esophageal reflux disease without esophagitis; N18.9 Chronic kidney disease, unspecified; U07.1 COVID-19; I10 Essential (primary) hypertension; E86.0 Dehydration